=== PATIENT | male | born 1965 | race African-American/Black ===

== ENCOUNTER 2016-11-23 13:56 | Emergency (ER) | payer OTHER ==
[2016-11-23 14:04] VITALS: BP 136/82; PULSE 63; TEMP 97.8; BMI 38.4
[2016-11-23 14:34] LABS: URINE APPEARANCE CLEAR; URINE BILIRUBIN NEGATIVE (NEGATIVE); URINE COLOR LTYELLOW; URINE GLUCOSE (UA) NEGATIVE (NEGATIVE); URINE KETONE NEGATIVE (NEGATIVE); URINE NITRITE NEGATIVE (NEGATIVE); URINE UROBILINOGEN NEGATIVE E.U./dl (0.2-1.0)
[2016-11-23 14:36] LABS: URINE BLOOD 3+ (NEGATIVE); URINE LEUK ESTERASE 1+ (NEGATIVE); URINE PROTEIN 1+ (NEGATIVE)
[2016-11-23 14:38] LABS: URINE MUCUS RARE; URINE RBC 515 /hpf (0-3); URINE WBC 6 /hpf (3-5)
[2016-11-23] MEDS ORDERED: SODIUM CHLORIDE 1,000 ML IV STA (16:00)
[2016-11-23] MEDS ORDERED: KETOROLAC TROMETHAMINE 30 MG/1 ML VIAL IVPUSH ONE (16:00)
[2016-11-23] MEDS ORDERED: ONDANSETRON 4 MG/2 ML VIAL IVPUSH ONE (16:00)
[2016-11-23] MEDS ORDERED: KETOROLAC TROMETHAMINE 30 MG/1 ML VIAL ONE ×2 (16:05)
[2016-11-23] MEDS ORDERED: ONDANSETRON 4 MG/2 ML VIAL ONE (16:05)
--- NOTE | 2016-11-23 16:41 | PDOC ---
*Physical Exam - Vital Signs Last Vital Signs Temp Pulse Resp BP Pulse Ox 97.8 F 63 16 136/82 98 11/23/16 14:02 11/23/16 14:02 11/23/16 14:02 11/23/16 14:02 11/23/16 14:02 ED Treatment Course - LABORATORY CBC & Chemistry Diagram: 11/23/16 16:23 11/23/16 16:23 - ADDITIONAL ORDERS Additional order review: Laboratory Results 11/23/16 14:20 Urine Color Ltyellow Urine Appearance Clear Urine pH 5.0 Ur Specific [place] 1.016 Urine Protein 1+ H Urine Glucose (UA) Negative Urine Ketones Negative Urine Blood 3+ H Urine Nitrite Negative Urine Bilirubin Negative Urine Urobilinogen Negative Ur Leukocyte Esterase 1+ H Urine RBC 515 Urine WBC 6 Ur Epithelial Cells Rare Urine Mucus Rare - Medications Given in the ED: ED Medications Discontinued Medications Generic Name Dose Route Start Last Admin Trade Name Freq PRN Reason Stop Dose Admin Ketorolac Tromethamine 30 mg 11/23/16 16:00 11/23/16 16:04 Toradol Injection - IVPUSH 11/23/16 16:01 30 mg ONCE ONE Administration Ondansetron HCl 4 mg 11/23/16 16:00 11/23/16 16:03 Zofran Injection IVPUSH 11/23/16 16:01 4 mg ONCE ONE Administration Medical Decision Making - Medical Decision Making 11/23/16 16:41 Pt seen by Midlevel Provider under my direct supervision Ancillary studies reviewed I agree with plan as outlined by Midlevel Provider *DC/Admit/Observation/Transfer Diagnosis at time of Disposition: Renal colic, Right flank pain - Discharge Dispostion Disposition: HOME Condition at time of disposition: Improved - Prescriptions Prescriptions: Oxycodone HCl/Acetaminophen [Percocet 5-325 mg Tablet] 1 - 2 tab PO Q6H PRN #16 tab MDD 4 PRN Reason: Pain - Referrals Referrals: Jose Maria Friedman MD [Staff Physician] - Ge Shrestha MD [Primary Care Provider] - - Patient Instructions Printed Discharge Instructions: DI for Kidney Stones Additional Instructions: Please follow-up with urologist and take Percocet as needed. Take your Flomax as previously prescribed. Please return to ED if you have worsening pain fever, or inability to urinate
--- NOTE | 2016-11-23 16:45 | PDOC ---
History of Present Illness - General Chief Complaint: Pain, Acute Stated Complaint: GROIN/BACK PAIN Time Seen by Provider: 11/23/16 14:02 History Source: Patient Exam Limitations: No Limitations - History of Present Illness Travel History: No Initial Comments: 11/23/16 15:43 51-year-old male with history of renal colic in BPH presents to the ED with complaints of hematuria, right flank pain, and urinary frequency for the past few days. Patient denies fever, chills, vomiting but does state intermittent nausea with discomfort. Patient states has seen Dr. Fernandez in the past and had a stent placed by a neurologist and [facility] but has not followed up with anyone recently. Timing/Duration: reports: constant, getting worse, intermittent Quality: reports: moderate, sharpness Abdominal Pain Onset Location: reports: flank (rt) Pain Radiation: reports: no radiation Activities at Onset: reports: none Aggravating Factors: improves with: Movement, Voiding Alleviating Factors: improves with: None Past History - Past Medical History Allergies/Adverse Reactions: Allergies Allergy/AdvReac Type Severity Reaction Status Date / Time Cat/Feline Product Allergy Verified 11/23/16 14:04 Derivatives No Known Drug Allergies Allergy Verified 11/23/16 14:04 Home Medications: Ambulatory Orders Ibuprofen 800 mg PO QID PRN #20 tablet 09/13/16 Tamsulosin HCl [Flomax] 0.4 mg PO DAILY #7 cap.er.24h 09/13/16 Kidney Stones: Yes (MULTIPLE LITHOTRIPSY) - Immunization History Td Vaccination: Yes TDAP Vaccination: No Immunization Up to Date: No - Psycho/Social/Smoking Cessation Hx Anxiety: No Suicidal Ideation: No Smoking Status: Yes Smoking History: Former smoker Years of Tobacco Use: 20 Have you smoked in the past 12 months: No Number of Cigarettes Smoked Daily: 0 If you are a former smoker, when did you quit?: 4 years ago Cigars Per Day: 0 Information on smoking cessation initiated: No Hx Alcohol Use: No Drug/Substance Use Hx: Yes Substance Use Type: None Patient Lives Alone: No Lives with/in: spouse/SO Review of Systems - Review of Systems Able to Perform ROS?: Yes Constitutional: No: Symptoms Reported HEENTM: No: Symptoms Reported Respiratory: No: Symptoms reported Cardiac (ROS): No: Symptoms Reported ABD/GI: Yes: Nausea : Yes: Dysuria, Frequency, Flank Pain, Hematuria Musculoskeletal: No: Symptoms Reported Integumentary: No: Symptoms Reported Neurological: No: Symptoms reported *Physical Exam - Vital Signs Last Vital Signs Temp Pulse Resp BP Pulse Ox 97.8 F 63 16 136/82 98 11/23/16 14:02 11/23/16 14:02 11/23/16 14:02 11/23/16 14:02 11/23/16 14:02 - Physical Exam General Appearance: Yes: Nourished, Appropriately Dressed. No: Apparent Distress HEENT: negative: Pale Conjunctivae Gastrointestinal/Abdominal: positive: Soft, Tenderness (rt flank) Musculoskeletal: positive: CVA Tenderness (R) Extremity: positive: Normal Capillary Refill. negative: Pedal Edema Integumentary: positive: Normal Color, Warm, Moist Neurologic: positive: Motor Strength 5/5 (ambulatory) ED Treatment Course - LABORATORY CBC & Chemistry Diagram: 11/23/16 16:23 11/23/16 16:23 - ADDITIONAL ORDERS Additional order review: Laboratory Results 11/23/16 14:20 Urine Color Ltyellow Urine Appearance Clear Urine pH 5.0 Ur Specific [place] 1.016 Urine Protein 1+ H Urine Glucose (UA) Negative Urine Ketones Negative Urine Blood 3+ H Urine Nitrite Negative Urine Bilirubin Negative Urine Urobilinogen Negative Ur Leukocyte Esterase 1+ H Urine RBC 515 Urine WBC 6 Ur Epithelial Cells Rare Urine Mucus Rare - RADIOLOGY Radiology Studies Ordered: Category Date Time Status KIDNEY / RENAL US [US] Stat Ultrasound 11/23/16 16:03 Ordered - Medications Given in the ED: ED Medications Discontinued Medications Generic Name Dose Route Start Last Admin Trade Name Bryanna PRN Reason Stop Dose Admin Ketorolac Tromethamine 30 mg 11/23/16 16:00 11/23/16 16:04 Toradol Injection - IVPUSH 11/23/16 16:01 30 mg ONCE ONE Administration Ondansetron HCl 4 mg 11/23/16 16:00 11/23/16 16:03 Zofran Injection IVPUSH 11/23/16 16:01 4 mg ONCE ONE Administration Medical Decision Making - Medical Decision Making 11/23/16 15:45 Patient with history of renal colic with distal tips he presents with urinary frequency hematuria and flank pain. Patient with CVA tenderness on exam and right flank tenderness on exam. Patient ordered for labs including fluids and analgesics, antiemetics and ultrasound since patient just had a CT done in September 2016 on top of previous abdominal CT. 11/23/16 18:24 Laboratory Tests 11/23/16 11/23/16 11/23/16 14:20 16:23 16:23 WBC 4.9 Hgb 13.4 Hct 40.0 Plt Count 248 Neutrophils % 45.1 Sodium 139 Potassium 4.1 Chloride 105 Carbon Dioxide 27 Anion Gap 7 L BUN 10 Creatinine 0.9 Random Glucose 95 Calcium 8.7 Total Bilirubin 0.2 AST 16 ALT 41 Albumin 4.0 Urine Protein 1+ H Urine Blood 3+ H Urine Nitrite Negative Ur Leukocyte Esterase 1+ H Urine RBC 515 Urine WBC 6 Patient states pain is returning and requesting more analgesics. Patient ordered for dilaudid. Patient's ultrasound pending. 11/23/16 18:34 Ultrasound shows a 6 mm echogenic focus and its lower pole consistent with the previously visualized nonobstructing stone. The left kidney appears unremarkable. There is no evidence of hydronephrosis, cystic or solid mass lesion bilaterally. Patient will be discharged home with Percocet continue his Flomax and follow-up with Dr. Friedman *DC/Admit/Observation/Transfer Diagnosis at time of Disposition: Renal colic, Right flank pain - Discharge Dispostion Disposition: HOME Condition at time of disposition: Improved - Referrals Referrals: Ge Shrestha MD [Primary Care Provider] - Jose Maria Friedman MD [Staff Physician] - - Patient Instructions Printed Discharge Instructions: DI for Kidney Stones Additional Instructions: Please follow-up with urologist and take Percocet as needed. Take your Flomax as previously prescribed. Please return to ED if you have worsening pain fever, or inability to urinate
[2016-11-23 17:14] LABS: BASOPHIL 0.5 % (0-2.0); EOSINOPHIL 3.3 % (0-4.5); MCH 27.6 pg (25.7-33.7); MCHC 33.5 g/dl (32.0-35.9); MEAN CELL VOLUME 82.4 fl (80-96); MEAN PLT VOLUME 7.9 fl (7.5-11.1); NEUTROPHILS 45.1 % (42.8-82.8); PLATELET COUNT 248 K/MM3 (134-434); RDW 13.7 % (11.9-15.9); WHITE BLOOD COUNT 4.9 K/mm3 (4.0-10.0)
[2016-11-23 17:33] LABS: ANION GAP 7 (8-16); BILIRUBIN,TOTAL 0.2 mg/dL (0.2-1.0); CALCIUM 8.7 mg/dL (8.5-10.1); CO2 27 mmol/L (21-32); CREATININE 0.9 mg/dL (0.7-1.3); GLUCOSE,RANDOM 95 mg/dL (74-106); SGOT/AST 16 U/L (15-37); SGPT/ALT 41 U/L (12-78); TOT PROT 7.1 g/dl (6.4-8.2)
[2016-11-23 17:34] LABS: ALK PHOS 94 U/L (45-117)
[2016-11-23] MEDS ORDERED: HYDROmorphone HCL CARPU-JECT 2 MG/1 ML DISP.SYRIN IVPUSH ONE (18:18)
[2016-11-23] MEDS ORDERED: HYDROmorphone HCL CARPU-JECT 1 MG/1 ML DISP.SYRIN ONE (18:26)
== END 2016-11-23 19:37 | disposition home or self-care (01) ==
LOC: JER 13:56
PROC: 3E0333Z Introduction of Anti-inflammatory into Peripheral Vein, Percutaneous Approach (ICD-10-PCS; principal; 2016-11-23)
PROC: 3E033GC Introduction of Other Therapeutic Substance into Peripheral Vein, Percutaneous Approach (ICD-10-PCS; 2016-11-23)
DX: N20.0 Calculus of kidney (principal)
CPT/HCPCS: 36415; 76775-TC; 80053; 81003; 81015; 85025; 99282-25

== ENCOUNTER 2017-01-03 18:47 | Emergency (ER) | payer OTHER ==
[2017-01-03 18:55] VITALS: BMI 39.5
--- NOTE | 2017-01-03 20:53 | PDOC ---
History of Present Illness - General History Source: Patient Exam Limitations: No Limitations - History of Present Illness Initial Comments: 01/03/17 21:38 The patient is a 51 year old male, with a significant past medical history of recurrent renal colic and kidney stones( for the past 6 years), who presents to the emergency department with complaint of RT groin pain and right flank pain for 1 day. He notes that the pain initiated in the right flank area and radiates to the right groin. He reports diaphoresis and 1 episode of vomiting. Patient notes that his last renal stone 6-7 months ago on the same side which is usual for him. He notes that the stones sometimes pass on their own or he has lithotripsy. He states that his last intervention was a year and half ago. He denies chest pain, shortness of breath, headache and dizziness. He denies fever, chills, nausea, vomit, diarrhea and constipation. He denies dysuria, frequency, urgency and hematuria. PSH: lithotripsy Social history: occasional drinker, former smoker, no recreational drug use. PCP - Dr. Shrestha Disbursement Clerk - Dr. Fontenot <Cassie Felder - Last Filed: 01/04/17 00:26> <Daksha Moise - Last Filed: 01/05/17 02:19> - General Chief Complaint: Pain, Acute Stated Complaint: KIDNEY STONES Time Seen by Provider: 01/03/17 20:43 Past History <Cassie Felder - Last Filed: 01/04/17 00:26> - Past Medical History Kidney Stones: Yes (MULTIPLE LITHOTRIPSY) - Immunization History Td Vaccination: Yes TDAP Vaccination: No Immunization Up to Date: No - Psycho/Social/Smoking Cessation Hx Anxiety: No Suicidal Ideation: No Smoking Status: Yes Smoking History: Never smoked Years of Tobacco Use: 20 Have you smoked in the past 12 months: No Number of Cigarettes Smoked Daily: 0 If you are a former smoker, when did you quit?: 4 years ago Cigars Per Day: 0 Information on smoking cessation initiated: No Hx Alcohol Use: No Drug/Substance Use Hx: Yes Substance Use Type: None <Daksha Moise - Last Filed: 01/05/17 02:19> - Past Medical History Allergies/Adverse Reactions: Allergies Allergy/AdvReac Type Severity Reaction Status Date / Time Cat/Feline Product Allergy Verified 01/03/17 18:55 Derivatives No Known Drug Allergies Allergy Verified 01/03/17 18:55 Home Medications: Ambulatory Orders Ibuprofen 800 mg PO QID PRN #20 tablet 09/13/16 Tamsulosin HCl [Flomax] 0.4 mg PO DAILY #7 cap.er.24h 09/13/16 Oxycodone HCl/Acetaminophen [Percocet 5-325 mg Tablet] 1 - 2 tab PO Q6H PRN #16 tab MDD 4 11/23/16 Ibuprofen [Motrin -] 800 mg PO TID PRN #21 tablet 01/04/17 Levofloxacin [Levaquin -] 500 mg PO DAILY #7 tablet 01/04/17 Tamsulosin HCl [Flomax -] 0.4 mg PO DAILY #7 cap.er.24h 01/04/17 Review of Systems - Review of Systems Able to Perform ROS?: Yes Comments:: 01/03/17 21:39 CONSTITUTIONAL: Absent: fever, chills, diaphoresis, generalized weakness, malaise, loss of appetite HEENT: Absent: rhinorrhea, nasal congestion, throat pain, throat swelling, difficulty swallowing, mouth swelling, ear pain, eye pain, visual Changes CARDIOVASCULAR: Absent: chest pain, syncope, palpitations, irregular heart rate, lightheadedness , peripheral edema RESPIRATORY: Absent: cough, shortness of breath, dyspnea with exertion, orthopnea, wheezing, stridor, hemoptysis GASTROINTESTINAL: Absent: abdominal pain, abdominal distension, nausea, vomiting, diarrhea, constipation, melena, hematochezia GENITOURINARY: Past: right flank pain, right groin pain Absent: dysuria, frequency, urgency, hesitancy, hematuria, genital pain MUSCULOSKELETAL: Absent: myalgia, arthralgia, joint swelling SKIN: Absent: rash, itching, pallor HEMATOLOGIC/IMMUNOLOGIC: Absent: easy bleeding, easy bruising, lymphadenopathy, frequent infections ENDOCRINE: Absent: unexplained weight gain, unexplained weight loss, heat intolerance, cold intolerance NEUROLOGIC: Absent: headache, focal weakness or paresthesias, dizziness, unsteady gait, seizure, mental status changes, bladder or bowel incontinence PSYCHIATRIC: Absent: anxiety, depression, suicidal or homicidal ideation, hallucinations. <Cassie Felder - Last Filed: 01/04/17 00:26> *Physical Exam - Vital Signs Last Vital Signs Temp Pulse Resp BP Pulse Ox 97.9 F 68 18 138/95 98 01/03/17 18:52 01/03/17 18:52 01/03/17 18:52 01/03/17 18:52 01/03/17 18:52 - Physical Exam Comments: 01/03/17 21:40 GENERAL: Well developed, well nourished. Awake and alert. No acute distress. HEENT: Normocephalic, atraumatic. PERRLA, EOMI. No conjunctival pallor. Sclera are non- icteric. Moist mucous membranes. Oropharynx is clear. NECK: Supple. Full ROM. No JVD. Carotid pulses 2+ and symmetric, without bruits. No thyromegaly. No lymphadenopathy. CARDIOVASCULAR: Regular rate and rhythm. No murmurs, rubs, or gallops. Distal pulses are 2+ and symmetric. PULMONARY: No evidence of respiratory distress. Lungs clear to auscultation bilaterally. No wheezing, rales or rhonchi. ABDOMINAL: Soft. Non-tender. Non-distended. No rebound or guarding. No organomegaly. Normoactive bowel sounds. MUSCULOSKELETAL +right CVA tenderness. Normal range of motion at all joints. No bony deformities or tenderness. EXTREMITIES: No cyanosis. No clubbing. No edema. No calf tenderness. SKIN: Warm and dry. Normal capillary refill. No rashes. No jaundice. NEUROLOGICAL: Alert, awake, appropriate. Cranial nerves 2-12 intact. No deficits to light touch and temperature in face, upper extremities and lower extremities. No motor deficits in the in face, upper extremities and lower extremities. Normoreflexic in the upper and lower extremities. Normal speech. PSYCHIATRIC: Cooperative. Good eye contact. Appropriate mood and affect. <Cassie Felder - Last Filed: 01/04/17 00:26> - Vital Signs Last Vital Signs Temp Pulse Resp BP Pulse Ox 97.9 F 68 18 138/95 98 01/03/17 18:52 01/03/17 18:52 01/03/17 18:52 01/03/17 18:52 01/03/17 18:52 <Daksha Moise - Last Filed: 01/05/17 02:19> ED Treatment Course - LABORATORY CBC & Chemistry Diagram: 01/03/17 21:35 01/03/17 21:35 - RADIOLOGY Radiology Studies Ordered: 01/04/17 00:27 EXAM DATE AND TIME: 2017-01-03 23:54:47.0 EXAM: ULTRASOUND RENAL 8 mm nonobstructing stone right kidney. Normal left kidney. THIS DOCUMENT HAS BEEN ELECTRONICALLY SIGNED Kelly Baca M.D. - Medications Given in the ED: ED Medications Discontinued Medications Generic Name Dose Route Start Last Admin Trade Name Freq PRN Reason Stop Dose Admin Ketorolac Tromethamine 30 mg 01/03/17 21:13 01/03/17 21:30 Toradol Injection - IVPUSH 01/03/17 21:14 30 mg ONCE ONE Administration <Cassie Felder - Last Filed: 01/04/17 00:26> - LABORATORY CBC & Chemistry Diagram: 01/03/17 21:35 01/03/17 21:35 <Daksha Moise - Last Filed: 01/05/17 02:19> Medical Decision Making - Medical Decision Making 01/05/17 02:18 51yo male w flank pain,no fever,no vomiting UA++UTI renal ultrasound normal chemistry - renal function good pt started on antibotics <Daksha Moise - Last Filed: 01/05/17 02:19> *DC/Admit/Observation/Transfer - Attestations Scribe Attestion: 01/03/17 21:41 Documentation prepared by ZACH Denis, acting as medical scheduler for Daksha Moise MD. <Cassie Felder - Last Filed: 01/04/17 00:26> <Daksha Moise - Last Filed: 01/05/17 02:19> Diagnosis at time of Disposition: Right flank pain, Cystitis - Discharge Dispostion Disposition: HOME Condition at time of disposition: Improved - Prescriptions Prescriptions: Tamsulosin HCl [Flomax -] 0.4 mg PO DAILY #7 cap.er.24h Levofloxacin [Levaquin -] 500 mg PO DAILY #7 tablet Ibuprofen [Motrin -] 800 mg PO TID PRN #21 tablet PRN Reason: Back Pain - Referrals Referrals: Annalisa Shrestha MD [Primary Care Provider] - - Patient Instructions Printed Discharge Instructions: DI for Hemorrhagic Cystitis, DI for Flank Pain Additional Instructions: you need to rock picker your prescriptions at your [facility] Follow up with your urologist as soon as possible
[2017-01-03] MEDS ORDERED: KETOROLAC TROMETHAMINE 30 MG/1 ML VIAL IVPUSH ONE (21:13)
[2017-01-03] MEDS ORDERED: KETOROLAC TROMETHAMINE 30 MG/1 ML VIAL ONE (21:31)
[2017-01-03 21:48] LABS: BASOPHIL 0.6 % (0-2.0); EOSINOPHIL 1.7 % (0-4.5); MCH 27.7 pg (25.7-33.7); MCHC 33.5 g/dl (32.0-35.9); MEAN CELL VOLUME 82.6 fl (80-96); MEAN PLT VOLUME 7.8 fl (7.5-11.1); NEUTROPHILS 59.2 % (42.8-82.8); PLATELET COUNT 244 K/MM3 (134-434); RDW 13.5 % (11.9-15.9); WHITE BLOOD COUNT 5.3 K/mm3 (4.0-10.0)
[2017-01-03 22:23] LABS: ALBUMIN 3.9 g/dl (3.4-5.0); ANION GAP 9 (8-16); CALCIUM 8.6 mg/dL (8.5-10.1); CO2 24 mmol/L (21-32); GLUCOSE,RANDOM 120 mg/dL (74-106); SGOT/AST 16 U/L (15-37); SGPT/ALT 39 U/L (12-78)
[2017-01-03 22:26] LABS: ALK PHOS 98 U/L (45-117); BILIRUBIN,TOTAL 0.2 mg/dL (0.2-1.0); TOT PROT 6.9 g/dl (6.4-8.2)
[2017-01-03 23:19] LABS: URINE APPEARANCE CLEAR; URINE BILIRUBIN NEGATIVE (NEGATIVE); URINE COLOR YELLOW; URINE GLUCOSE (UA) NEGATIVE (NEGATIVE); URINE KETONE NEGATIVE (NEGATIVE); URINE LEUK ESTERASE NEGATIVE (NEGATIVE); URINE NITRITE NEGATIVE (NEGATIVE); URINE UROBILINOGEN NEGATIVE E.U./dl (0.2-1.0)
[2017-01-03 23:21] LABS: URINE BLOOD 3+ (NEGATIVE); URINE PROTEIN 1+ (NEGATIVE)
[2017-01-03 23:25] LABS: URINE MUCUS FEW; URINE RBC 158 /hpf (0-3); URINE WBC 5 /hpf (3-5)
[2017-01-03] MEDS ORDERED: HYDROmorphone HCL CARPU-JECT 1 MG/1 ML DISP.SYRIN ONE (23:54)
[2017-01-04] MEDS ORDERED: LEVOFLOXACIN 500 MG TABLET (FP) PO ONE (00:41)
[2017-01-04] MEDS ORDERED: HYDROmorphone HCL CARPU-JECT 1 MG/1 ML DISP.SYRIN IVPUSH ONE (00:41)
[2017-01-04] MEDS ORDERED: TAMSULOSIN HCL 0.4 MG CAP.ER.24H (FP) PO ONE (00:41)
[2017-01-04] MEDS ORDERED: TAMSULOSIN HCL 0.4 MG CAP.ER.24H (FP) ONE (00:52)
[2017-01-04] MEDS ORDERED: LEVOFLOXACIN 500 MG TABLET (FP) ONE (00:52)
[2017-01-04 01:07] VITALS: BP 119/65; PULSE 84; TEMP 98.7
== END 2017-01-04 01:05 | disposition home or self-care (01) ==
LOC: JER 18:47
PROC: 3E033NZ Introduction of Analgesics, Hypnotics, Sedatives into Peripheral Vein, Percutaneous Approach (ICD-10-PCS; principal; 2017-01-03)
PROC: 3E0333Z Introduction of Anti-inflammatory into Peripheral Vein, Percutaneous Approach (ICD-10-PCS; 2017-01-03)
DX: N30.01 Acute cystitis with hematuria (principal)
CPT/HCPCS: 36415; 76775-TC; 80053; 81003; 81015; 85025; 99282-25

== ENCOUNTER 2017-01-05 06:30 | Emergency (ER) | payer OTHER ==
[2017-01-05 06:57] VITALS: TEMP 97.5; BMI 87.1
[2017-01-05] MEDS ORDERED: KETOROLAC TROMETHAMINE 30 MG/1 ML VIAL IVPUSH ONE (07:21)
[2017-01-05] MEDS ORDERED: SODIUM CHLORIDE 1,000 ML IV ONE (07:21)
[2017-01-05] MEDS ORDERED: KETOROLAC TROMETHAMINE 30 MG/1 ML VIAL ONE (07:37)
--- NOTE | 2017-01-05 07:47 | PDOC ---
History of Present Illness <Cassie Felder - Last Filed: 01/05/17 11:14> - General History Source: Patient, Old Records Exam Limitations: No Limitations - History of Present Illness Initial Comments: 01/05/17 07:42 51-year-old male with no significant past medical history other than kidney stones presents with persistent right flank pain for 3 days. Pain similar to past kidney stone pain began 3 days ago, was seen in the ED on 01/03 and had an ultrasound showing nonobstructing stones, labs that were normal, and a urinalysis with elevated red blood cells and some white blood cells, so he was discharged on Flomax and Levaquin. The patient was feeling well most of yesterday, but this morning felt another sharp and sudden pain radiating from his right flank to his right groin, so he presents for reevaluation. Pain after urination, otherwise normal urine output that is nonbloody and without clots. No fevers or chills, no diarrhea. No cardio pulmonary complaints, no recent antibiotics. Sexually active with 2 partners, uses condoms most of the time, denies any urethral discharge or history of STI. Required a ureteral stent once in the past, otherwise no surgical history. <José Miguel Cole - Last Filed: 01/05/17 12:45> - General Chief Complaint: Pain Stated Complaint: PAIN,KIDNEY STONES Time Seen by Provider: 01/05/17 07:16 Past History <Cassie Felder - Last Filed: 01/05/17 11:14> - Past Medical History Kidney Stones: Yes (MULTIPLE LITHOTRIPSY) - Immunization History Td Vaccination: Yes TDAP Vaccination: No Immunization Up to Date: No - Psycho/Social/Smoking Cessation Hx Anxiety: No Suicidal Ideation: No Smoking Status: Yes Smoking History: Never smoked Years of Tobacco Use: 20 Have you smoked in the past 12 months: No Number of Cigarettes Smoked Daily: 0 If you are a former smoker, when did you quit?: 4 years ago Cigars Per Day: 0 Hx Alcohol Use: No Drug/Substance Use Hx: No Substance Use Type: None <José Miguel Cole - Last Filed: 01/05/17 12:45> - Past Medical History Allergies/Adverse Reactions: Allergies Allergy/AdvReac Type Severity Reaction Status Date / Time Cat/Feline Product Allergy Verified 01/05/17 06:53 Derivatives No Known Drug Allergies Allergy Verified 01/05/17 06:53 Home Medications: Ambulatory Orders Ciprofloxacin HCl [Cipro] 500 mg PO BID #10 tablet 01/05/17 Oxycodone HCl/Acetaminophen [Percocet 5-325 mg Tablet] 1 - 2 tab PO Q6H PRN #10 tab MDD 6 01/05/17 Tamsulosin HCl [Flomax] 0.4 mg PO DAILY #5 cap.er.24h 01/05/17 Review of Systems - Review of Systems Constitutional: No: Chills, Fever Respiratory: No: Cough, Shortness of Breath Cardiac (ROS): No: Chest Pain ABD/GI: No: Constipated, Diarrhea : Yes: See HPI All Other Systems: Reviewed and Negative <José Miguel Cole - Last Filed: 01/05/17 12:45> *Physical Exam - Vital Signs Last Vital Signs Temp Pulse Resp BP Pulse Ox 97.5 F L 52 L 20 148/99 100 01/05/17 06:55 01/05/17 10:55 01/05/17 10:55 01/05/17 10:55 01/05/17 10:55 <Cassie Felder - Last Filed: 01/05/17 11:14> - Vital Signs Last Vital Signs Temp Pulse Resp BP Pulse Ox 97.5 F L 18 L 135/94 100 01/05/17 06:55 01/05/17 06:55 01/05/17 06:55 01/05/17 06:55 - Physical Exam Comments: 01/05/17 07:44 HR 80 (18 on triage note is a misprint) GENERAL: The patient is awake, alert, and fully oriented, in mild distress secondary to flank pain. HEAD: Normal with no signs of trauma. EYES: PERRL, EOMI, sclera anicteric, conjunctiva clear with no pallor. ENT: oropharynx clear without exudates. Moist mucous membranes. NECK: Normal range of motion, supple without lymphadenopathy, JVD, or masses. LUNGS: Breath sounds equal, clear to auscultation bilaterally. No wheeze/ crackles. HEART: Regular rate and rhythm, normal S1 and S2 without murmur or rub. ABDOMEN: Soft/nondistended. Discomfort to palpation along the lateral right abdomen, no focal CVA tenderness. BS wnl. No guarding or rebound. No palpable masses. No hepatosplenomegaly. : Normal uncircumcised without discharge, no scrotal or testicular enlargement or palpable masses, some right epididymal discomfort to palpation EXTREMITIES: Normal range of motion, no edema. 2+ distal pulses. No cords, erythema, or tenderness. NEUROLOGICAL: Cranial nerves II through XII grossly intact. Normal speech, normal gait. PSYCH: Normal mood, normal affect. SKIN: Warm, Dry, no rashes or lesions noted. <José Miguel Cole - Last Filed: 01/05/17 12:45> ED Treatment Course - LABORATORY CBC & Chemistry Diagram: 01/05/17 08:00 01/05/17 08:00 - ADDITIONAL ORDERS Additional order review: Laboratory Results 01/05/17 01/05/17 08:00 08:00 Sodium 139 Potassium 3.8 Chloride 101 Carbon Dioxide 30 D Anion Gap 8 BUN 8 D Creatinine 1.0 Creat Clearance w eGFR > 60 Random Glucose 113 H Calcium 8.5 Total Bilirubin 0.5 D AST 20 D ALT 34 Alkaline Phosphatase 94 Total Protein 7.5 Albumin 4.1 Lipase 218 Urine Color Ltyellow Urine Appearance Clear Urine pH 6.0 Ur Specific [place] 1.015 Urine Protein 1+ H Urine Glucose (UA) Negative Urine Ketones Negative Urine Blood 3+ H Urine Nitrite Negative Urine Bilirubin Negative Urine Urobilinogen Negative Ur Leukocyte Esterase Trace H Urine RBC 168 Urine WBC 7 Ur Epithelial Cells Rare Urine Mucus Few 01/05/17 08:00 RBC 5.24 MCV 82.8 MCHC 33.7 RDW 13.5 MPV 7.6 Neutrophils % 48.8 Lymphocytes % 36.8 Monocytes % 10.4 H Eosinophils % 3.3 D Basophils % 0.7 - RADIOLOGY Radiology Studies Ordered: 01/05/17 11:11 EXAM: CT/ABDOMEN PELVIS CT W/O CONTR Clinical history: Right flank pain. Comparison: September 13, 2016. Contiguous transaxial images were obtained from the diaphragmatic domes and pubic symphysis without the administration of oral and IV contrast as a Stone study. Lung bases: Negative. Bone: Negative. Liver: Negative. Gallbladder: Negative. Biliary tree: Negative. Spleen: Negative. Pancreas: Negative. Adrenals: Negative. Kidneys: Mild right hydronephrosis with a 5 mm renal pelvic stone and a 4-5 mm lower pole stone. No ureteral or bladder calculi. Pelvis: Negative. Under distended bladder. Normal sized prostate. Bowel: Negative, including the appendix. Other: Negative. Impression: Mild right hydronephrosis related to a 5 mm renal pelvic stone. /5 mm right lower pole renal stone. On the prior study, the 2 stones were seen in the lower pole adjacent to each other. Reported By: Blake Elizabeth MD 01/05/17 01/05/17 11:14 EXAM: US/SCROTUM AND CONTENTS US Scrotal ultrasound: HISTORY: Right-sided discomfort. Ultrasound of the scrotum and its contents is performed. The testicles are homogeneous in echotexture and demonstrate normal arterial flow bilaterally. The right testicle measures 5.3 x 2.5 x 3.2 cm and the left testicle measures 4.8 x 2.5 x 3.6 cm The epididymal head on the right is heterogeneous in appearance and there is a complex hydrocele on the right. The left epididymis is unremarkable. There is a minimal left hydrocele. IMPRESSION: Heterogeneous appearance to the epididymal head on the right and complex right hydrocele and recommend clinical correlation. No evidence of testicular torsion. Reported By: Fahad Nieves MD 01/05/17 - Medications Given in the ED: ED Medications Discontinued Medications Generic Name Dose Route Start Last Admin Trade Name Freq PRN Reason Stop Dose Admin Sodium Chloride 1,000 mls @ 1,000 mls/hr 01/05/17 07:21 01/05/17 07:54 Normal Saline - IV 01/05/17 08:20 Not Given ONCE ONE Ketorolac Tromethamine 30 mg 01/05/17 07:21 01/05/17 07:50 Toradol Injection - IVPUSH 01/05/17 07:22 30 mg ONCE ONE Administration Oxycodone/Acetaminophen 2 combo 01/05/17 10:54 01/05/17 11:04 Percocet 5/325 - PO 01/05/17 10:55 2 combo ONCE ONE Administration <Cassie Felder - Last Filed: 01/05/17 11:14> - LABORATORY CBC & Chemistry Diagram: 01/05/17 08:00 01/05/17 08:00 - RADIOLOGY Radiology Studies Ordered: Category Date Time Status ABDOMEN & PELVIS CT W/O CONTR [CT] Stat CT Scan 01/05/17 07:35 Ordered <José Miguel Cole - Last Filed: 01/05/17 12:45> Medical Decision Making - Medical Decision Making 01/05/17 07:45 51-year-old male with history of kidney stones presents with renal colic like pain for 3 days, recurrent episode this morning. 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 Some testicular discomfort. Presentation seems most consistent with renal colic but rule out epididymitis. labs, ua pain control ctap given 3d of persistent discomfort with hematuria check scrotal sono reassess 01/05/17 09:50 CT shows slightly obstructing 5 mm right renal pelvic stone, mild right hydronephrosis. Labs are within normal limits, no leukocytosis, creatinine normal. Urinalysis again with very elevated red blood cells and only 7 white blood cells. Ultrasound pending. 01/05/17 11:33 complex R hydrocele with heterogeneous epydidmis, testicles normal contour and flow. Pt with persistent R flank pain, trial of percocet. Given ongoing sxs for 3d and persistent proximal location of 5mm stone, will consult urology. Dr. Conte called. 01/05/17 12:[address] Rubio, lithotripsy would not be available urgently. Given nonobstructing and noninfected stone, recommends treating empirically with Levaquin and pain medication, and can see the patient in his office tomorrow. Patient agrees with plan, is more comfortable after Percocet, can get the prescriptions filled and take the medications from his prior visit. Understands return criteria. <José Miguel Cole - Last Filed: 01/05/17 12:45> *DC/Admit/Observation/Transfer <Cassie Felder - Last Filed: 01/05/17 11:14> <José Miguel Cole - Last Filed: 01/05/17 12:45> Diagnosis at time of Disposition: Renal colic on right side - Discharge Dispostion Disposition: HOME Condition at time of disposition: Improved - Prescriptions Prescriptions: Ciprofloxacin HCl [Cipro] 500 mg PO BID #10 tablet Tamsulosin HCl [Flomax] 0.4 mg PO DAILY #5 cap.er.24h Oxycodone HCl/Acetaminophen [Percocet 5-325 mg Tablet] 1 - 2 tab PO Q6H PRN #10 tab MDD 6 PRN Reason: Pain - Referrals Referrals: Annalisa Shrestha [Primary Care Provider] - Behzad Conte MD., [Staff Physician] - - Patient Instructions Printed Discharge Instructions: DI for Kidney Stones Additional Instructions: Activity as tolerated. Stay hydrated. There is a 5 mm kidney stone on the right side without evidence of infection. As discussed, it is likely that this will pass on its own but you should see a urologist as soon as possible. Take ibuprofen 600 mg with food every 6-8 hours as needed for moderate pain. Take Percocet as prescribed as needed for severe pain. Percocet can make you lightheaded, so take proper precautions. Take Flomax as prescribed to help pass the stone, take ciprofloxacin as prescribed to help prevent infection. Continue your medications as previously prescribed by your physician. You should follow up with a urologist as soon as possible regarding today's emergency department visit. If you can see your urologist Dr. Lima, call Dr. Rubio's office today to make an appointment for tomorrow. He is expecting to see you. Return to the emergency department for any new or concerning symptoms, particularly persistent or intolerable pain, fevers or chills, difficulty urinating. - Post Discharge Activity Work/School Note: Back to Work
[2017-01-05 08:23] LABS: BASOPHIL 0.7 % (0-2.0); EOSINOPHIL 3.3 % (0-4.5); MCH 27.9 pg (25.7-33.7); MCHC 33.7 g/dl (32.0-35.9); MEAN CELL VOLUME 82.8 fl (80-96); MEAN PLT VOLUME 7.6 fl (7.5-11.1); NEUTROPHILS 48.8 % (42.8-82.8); PLATELET COUNT 224 K/MM3 (134-434); RDW 13.5 % (11.9-15.9); WHITE BLOOD COUNT 3.9 K/mm3 (4.0-10.0)
[2017-01-05 08:24] LABS: URINE APPEARANCE CLEAR; URINE BILIRUBIN NEGATIVE (NEGATIVE); URINE COLOR LTYELLOW; URINE GLUCOSE (UA) NEGATIVE (NEGATIVE); URINE KETONE NEGATIVE (NEGATIVE); URINE NITRITE NEGATIVE (NEGATIVE); URINE UROBILINOGEN NEGATIVE E.U./dl (0.2-1.0)
[2017-01-05 08:28] LABS: URINE BLOOD 3+ (NEGATIVE); URINE LEUK ESTERASE TRACE (NEGATIVE); URINE PROTEIN 1+ (NEGATIVE)
[2017-01-05 08:29] LABS: URINE MUCUS FEW; URINE RBC 168 /hpf (0-3); URINE WBC 7 /hpf (3-5)
[2017-01-05 08:46] LABS: ALBUMIN 4.1 g/dl (3.4-5.0); ANION GAP 8 (8-16); CALCIUM 8.5 mg/dL (8.5-10.1); CO2 30 mmol/L (21-32); GLUCOSE,RANDOM 113 mg/dL (74-106)
[2017-01-05 08:49] LABS: ALK PHOS 94 U/L (45-117); BILIRUBIN,TOTAL 0.5 mg/dL (0.2-1.0); SGOT/AST 20 U/L (15-37); SGPT/ALT 34 U/L (12-78); TOT PROT 7.5 g/dl (6.4-8.2)
[2017-01-05] MEDS ORDERED: OXYCODONE/APAP 5/325MG COMBO TABLET PO ONE (10:54)
[2017-01-05] MEDS ORDERED: OXYCODONE/APAP 5/325MG COMBO TABLET ONE (11:02)
[2017-01-05] MEDS ORDERED: TAMSULOSIN HCL 0.4 MG CAP.ER.24H (FP) PO ONE (12:38)
[2017-01-05] MEDS ORDERED: TAMSULOSIN HCL 0.4 MG CAP.ER.24H (FP) ONE (12:57)
[2017-01-05 13:06] VITALS: BP 130/95; PULSE 62
== END 2017-01-05 13:06 | disposition home or self-care (01) ==
LOC: JER 06:30
PROC: 3E0333Z Introduction of Anti-inflammatory into Peripheral Vein, Percutaneous Approach (ICD-10-PCS; principal; 2017-01-05)
DX: N23 Unspecified renal colic (principal); Z87.891 Personal history of nicotine dependence
CPT/HCPCS: 36415; 74176-TC; 76870-TC; 80053; 81003; 81015; 83690; 85025; 99283-25

== ENCOUNTER 2017-01-22 19:09 | Emergency (ER) | payer OTHER ==
[2017-01-22 19:34] VITALS: BMI 38.7
[2017-01-22] MEDS ORDERED: SODIUM CHLORIDE 1,000 ML IV STA (19:50)
[2017-01-22] MEDS ORDERED: ACETAMINOPHEN 500 MG TABLET (FP) PO ONE (19:50)
[2017-01-22 19:58] LABS: URINE APPEARANCE CLEAR; URINE BILIRUBIN NEGATIVE (NEGATIVE); URINE BLOOD NEGATIVE (NEGATIVE); URINE COLOR LTYELLOW; URINE GLUCOSE (UA) NEGATIVE (NEGATIVE); URINE KETONE TRACE (NEGATIVE); URINE NITRITE NEGATIVE (NEGATIVE); URINE PROTEIN NEGATIVE (NEGATIVE); URINE UROBILINOGEN NEGATIVE E.U./dl (0.2-1.0)
[2017-01-22 20:00] LABS: URINE LEUK ESTERASE TRACE (NEGATIVE)
[2017-01-22 20:03] LABS: URINE MUCUS RARE; URINE RBC 4 /hpf (0-3); URINE WBC 25 /hpf (3-5)
[2017-01-22] MEDS ORDERED: ACETAMINOPHEN 325 MG TABLET (FP) ONE (20:16)
[2017-01-22 20:23] LABS: BASOPHIL 0.3 % (0-2.0); EOSINOPHIL 0.2 % (0-4.5); MCH 27.4 pg (25.7-33.7); MCHC 33.3 g/dl (32.0-35.9); MEAN CELL VOLUME 82.3 fl (80-96); MEAN PLT VOLUME 7.6 fl (7.5-11.1); NEUTROPHILS 84.3 % (42.8-82.8); PLATELET COUNT 233 K/MM3 (134-434); RDW 13.3 % (11.9-15.9); WHITE BLOOD COUNT 12.5 K/mm3 (4.0-10.0)
--- NOTE | 2017-01-22 20:40 | PDOC ---
History of Present Illness - General Chief Complaint: SIRS, Suspected/Possible Stated Complaint: FEVER/CHILLS/GROIN PAIN Time Seen by Provider: 01/22/17 19:31 History Source: Patient Exam Limitations: No Limitations - History of Present Illness Travel History: No Initial Comments: 01/22/17 20:35 51yo Male patient w/ PmHx: Renal Colic presents to ED c/o fever, chills, groin pain and feeling of urine being hot inside penis. Patient states symptoms have occurred previously "years ago." He states he needed to be hospitalized because of fungal infection in urine. He also states while having sex last night, he had to stop because his penis again felt "extremely hot." Patient denies urgency , frequency, burning, discharge, hematuria, dysuria, back pain, CP, Abd pain, n/ v/d, rash, or any other complaints at this time. Associated testicular pain. Timing/Duration: reports: getting worse Quality: reports: moderate Abdominal Pain Onset Location: reports: other (Groin Pain) Pain Radiation: reports: no radiation Activities at Onset: reports: sexual intercourse Treatment Prior to Arrive: worse with: analgesics, antacids, cold pack, heat, laxative, enema, other Aggravating Factors: improves with: None Alleviating Factors: improves with: None Past History - Travel Traveled outside of the country in the last 30 days: No Close contact w/someone who was outside of country & ill: No - Past Medical History Allergies/Adverse Reactions: Allergies Allergy/AdvReac Type Severity Reaction Status Date / Time Cat/Feline Product Allergy Verified 01/22/17 19:32 Derivatives No Known Drug Allergies Allergy Verified 01/22/17 19:32 Home Medications: Ambulatory Orders Ciprofloxacin HCl [Cipro] 500 mg PO BID #10 tablet 01/05/17 Oxycodone HCl/Acetaminophen [Percocet 5-325 mg Tablet] 1 - 2 tab PO Q6H PRN #10 tab MDD 6 01/05/17 Tamsulosin HCl [Flomax] 0.4 mg PO DAILY #5 cap.er.24h 01/05/17 Ibuprofen 800 mg PO Q8H PRN #30 tablet 01/22/17 Levofloxacin [Levaquin -] 500 mg PO DAILY #10 tablet 01/22/17 Tramadol HCl [Ultram] 50 mg PO Q6H PRN #12 tablet MDD 4 tabs 01/22/17 Kidney Stones: Yes (MULTIPLE LITHOTRIPSY) - Immunization History Td Vaccination: Yes TDAP Vaccination: No Immunization Up to Date: No - Psycho/Social/Smoking Cessation Hx Anxiety: No Suicidal Ideation: No Smoking Status: Yes Smoking History: Never smoked Years of Tobacco Use: 20 Have you smoked in the past 12 months: No Number of Cigarettes Smoked Daily: 0 If you are a former smoker, when did you quit?: 4 years ago Cigars Per Day: 0 Information on smoking cessation initiated: No Hx Alcohol Use: No Drug/Substance Use Hx: No Substance Use Type: None Abd/GI Specific PMHX - Complaint Specific PMHX Colitis: No Diverticulitis: No Gall Bladder Disease: No GERD: No Hepatitis: No Irritable Bowel Synd (IBS): No Pancreatitis: No GI Ulcer Disease: No Review of Systems - Review of Systems Able to Perform ROS?: Yes Is the patient limited [place] proficient: No Constitutional: Yes: Chills, Malaise, Weakness Respiratory: No: Cough, Shortness of Breath, Stridor, Wheezing, Productive cough Cardiac (ROS): No: Chest Pain, Lightheadedness, Palpitations, Syncope ABD/GI: No: Constipated, Diarrhea, Nausea, Poor Appetite, Poor Fluid Intake, Rectal Bleeding, Vomiting, Abdominal cramping : Yes: Pain, Testicular Pain. No: Burning, Dysuria, Discharge, Frequency, Flank Pain, Hematuria, Urgency, Testicular Mass, Testicular Swelling Musculoskeletal: No: Back Pain, Muscle Weakness Integumentary: No: Erythema, Rash, Sweating Neurological: No: Headache, Seizure, Dizziness All Other Systems: Reviewed and Negative *Physical Exam - Vital Signs Last Vital Signs Temp Pulse Resp BP Pulse Ox 101.8 F H 88 20 144/91 99 01/22/17 19:32 01/22/17 19:32 01/22/17 19:32 01/22/17 19:32 01/22/17 19:32 - Physical Exam General Appearance: Yes: Nourished, Appropriately Dressed, Mild Distress. No: Apparent Distress, Moderate Distress, Severe Distress Neck: positive: Trachea midline, Supple. negative: Lymphadenopathy (R), Lymphadenopathy (L) Respiratory/Chest: positive: Lungs Clear, Normal Breath Sounds. negative: Respiratory Distress, Accessory Muscle Use, Labored Respiration, Rapid RR, Stridor, Wheezing Cardiovascular: positive: Regular Rhythm, Regular Rate. negative: Edema, JVD, Murmur Gastrointestinal/Abdominal: positive: Normal Bowel Sounds, Soft. negative: Distended, Guarding, Rebound, Tenderness Male Genitalia: positive: normal genitalia, testicular tenderness, epididymus tender. negative: discharge, testicular mass, inguinal hernia, hematuria Lymphatic: negative: Adenopathy Musculoskeletal: positive: Normal Inspection. negative: CVA Tenderness Extremity: positive: Normal Capillary Refill, Normal Inspection, Normal Range of Motion. negative: Swelling, Calf Tenderness, Erythema, Inflammation Integumentary: positive: Normal Color, Dry, Warm. negative: Erythema, Swelling Neurologic: positive: systems administration analyst II-XII NML intact, Fully Oriented, Alert, Normal Mood/ Affect, Normal Response, Motor Strength 02/04 ED Treatment Course - LABORATORY CBC & Chemistry Diagram: 01/22/17 20:12 01/22/17 20:12 - ADDITIONAL ORDERS Additional order review: Laboratory Results 01/22/17 19:49 Urine Color Ltyellow Urine Appearance Clear Urine pH 7.0 Ur Specific [place] 1.016 Urine Protein Negative Urine Glucose (UA) Negative Urine Ketones Trace H Urine Blood Negative Urine Nitrite Negative Urine Bilirubin Negative Urine Urobilinogen Negative Ur Leukocyte Esterase Trace H Urine RBC 4 Urine WBC 25 Ur Epithelial Cells Rare Urine Mucus Rare 01/22/17 20:12 RBC 5.00 MCV 82.3 MCHC 33.3 RDW 13.3 MPV 7.6 Neutrophils % 84.3 H D Lymphocytes % 7.8 L D Monocytes % 7.4 Eosinophils % 0.2 D Basophils % 0.3 - RADIOLOGY Radiology Studies Ordered: Category Date Time Status CHEST PA & LAT [RAD] Stat Radiology 01/22/17 19:50 Ordered - Medications Given in the ED: ED Medications Discontinued Medications Generic Name Dose Route Start Last Admin Trade Name Freq PRN Reason Stop Dose Admin Acetaminophen 1,000 mg 01/22/17 19:50 01/22/17 20:21 Tylenol - PO 01/22/17 19:51 1,000 mg ONCE ONE Administration *DC/Admit/Observation/Transfer Diagnosis at time of Disposition: Epididymitis - Discharge Dispostion Disposition: HOME Condition at time of disposition: Stable Admit: No - Prescriptions Prescriptions: Ibuprofen 800 mg PO Q8H PRN #30 tablet PRN Reason: Pain Levofloxacin [Levaquin -] 500 mg PO DAILY #10 tablet Tramadol HCl [Ultram] 50 mg PO Q6H PRN #12 tablet MDD 4 tabs PRN Reason: Severe Pain - Referrals Referrals: Barrett Polanco MD [Staff Physician] - - Patient Instructions Printed Discharge Instructions: DI for Epididymitis Additional Instructions: FOLLOW UP WITH DR. POLANCO (UROLOGY). CALL TO SCHEDULE APPOINTMENT. TAKE MEDICATIONS PRESCRIBED. DO NOT DRIVE, DRINK ALCOHOL, OR OPERATE HEAVY MACHINERY WHILE TAKING TRAMADOL. RETURN IF YOUR SYMPTOMS WORSEN OR ANY CONCERNS FOR FURTHER EVALUATION. AVOID SEXUAL INTERCOURSE FOR 10 DAYS. Print Language: AMHARIC
[2017-01-22 20:52] LABS: ALBUMIN 4.1 g/dl (3.4-5.0); ALK PHOS 96 U/L (45-117); ANION GAP 10 (8-16); BILIRUBIN,TOTAL 0.8 mg/dL (0.2-1.0); CALCIUM 8.9 mg/dL (8.5-10.1); CO2 26 mmol/L (21-32); COCKROFT - GAULT 132.89; CREATININE 1.1 mg/dL (0.7-1.3); GLUCOSE,RANDOM 119 mg/dL (74-106); SGOT/AST 20 U/L (15-37); SGPT/ALT 38 U/L (12-78); TOT PROT 7.5 g/dl (6.4-8.2); TROPONIN I < 0.02 ng/ml (0.00-0.05)
[2017-01-22] MEDS ORDERED: cefTRIAXone 2 GM/100 ML BAG (PRE-DOCKED) IVPB ONE (21:58)
[2017-01-22] MEDS ORDERED: CEFTRIAXONE 100 ML IVPB ONE (22:09)
[2017-01-23 01:28] VITALS: BP 128/81; PULSE 84; TEMP 100.4
== END 2017-01-23 01:24 | disposition home or self-care (01) ==
LOC: JER 19:09
PROC: 3E0337Z Introduction of Electrolytic and Water Balance Substance into Peripheral Vein, Percutaneous Approach (ICD-10-PCS; principal; 2017-01-22)
PROC: 3E03329 Introduction of Other Anti-infective into Peripheral Vein, Percutaneous Approach (ICD-10-PCS; 2017-01-22)
DX: N45.1 Epididymitis (principal)
CPT/HCPCS: 36415; 71020-TC; 76870-TC; 80053; 81003; 81015; 82550; 82553; 83605; 84484; 85025; 87040; 87086; 87804; 99284-25

== ENCOUNTER 2017-03-24 18:32 | Emergency (ER) | payer OTHER ==
[2017-03-24 18:46] VITALS: TEMP 97.9; BMI 36.9
--- NOTE | 2017-03-24 20:57 | PDOC ---
History of Present Illness - General History Source: Patient Exam Limitations: No Limitations - History of Present Illness Initial Comments: 03/24/17 20:58 The patient is a 51-year-old male, with a significant past medical history of recurrent kidney stones, who presents to the ED with right-sided flank pain today. The pt states that his pain is radiating down to his groan. Last CT scan for the kidney stones was in January. Patient reports nausea. The patient denies any fever, chills, vomiting, diarrhea, or abdominal pain. <Lucretia Ayon - Last Filed: 03/24/17 20:57> - General History Source: Patient <Heraclio Hodgson - Last Filed: 03/24/17 23:55> - General Chief Complaint: Pain Stated Complaint: PAIN Time Seen by Provider: 03/24/17 20:57 Past History <Lucretia Ayon - Last Filed: 03/24/17 20:57> - Past Medical History Kidney Stones: Yes (MULTIPLE LITHOTRIPSY) - Immunization History Td Vaccination: Yes TDAP Vaccination: No Immunization Up to Date: No - Psycho/Social/Smoking Cessation Hx Anxiety: No Suicidal Ideation: No Smoking Status: Yes Smoking History: Former smoker Years of Tobacco Use: 20 Have you smoked in the past 12 months: No Number of Cigarettes Smoked Daily: 0 If you are a former smoker, when did you quit?: 4 years ago Cigars Per Day: 0 Information on smoking cessation initiated: No Hx Alcohol Use: No Drug/Substance Use Hx: No Substance Use Type: None <Heraclio Hodgson - Last Filed: 03/24/17 23:55> - Past Medical History Allergies/Adverse Reactions: Allergies Allergy/AdvReac Type Severity Reaction Status Date / Time Cat/Feline Product Allergy Verified 03/24/17 18:43 Derivatives No Known Drug Allergies Allergy Verified 03/24/17 18:43 Home Medications: Ambulatory Orders Ibuprofen 800 mg PO TID #30 tablet 03/24/17 Oxycodone HCl/Acetaminophen [Percocet 5-325 mg Tablet] 1 - 2 tab PO Q4H #20 tablet MDD 4 03/24/17 Review of Systems - Review of Systems Able to Perform ROS?: Yes Comments:: 03/24/17 21:00 CONSTITUTIONAL: Absent: fever, no chills, no fatigue EYES: Absent: visual changes ENT: Absent: ear pain, no sore throat CARDIOVASCULAR: Absent: chest pain, no palpitations RESPIRATORY: Absent: cough, no SOB GI: Absent: abdominal pain, no nausea, no vomiting, no constipation, no diarrhea GENITOURINARY: Absent: dysuria, no frequency, no hematuria MUSKULOSKELETAL: Present: right-sided flank pain Absent: no arthralgia SKIN: Absent: rash NEURO: Absent: headache <Lucretia Ayon - Last Filed: 03/24/17 20:57> *Physical Exam - Vital Signs Last Vital Signs Temp Pulse Resp BP Pulse Ox 97.9 F 59 L 18 126/89 100 03/24/17 18:43 03/24/17 18:43 03/24/17 18:43 03/24/17 18:43 03/24/17 18:43 - Physical Exam Comments: 03/24/17 21:01 Well developed, well nourished. Awake and alert. No acute distress. HEENT: Normocephalic, atraumatic. PERRLA, EOMI. No conjunctival pallor. Sclera are non- icteric. Moist mucous membranes. Oropharynx is clear. NECK: Supple. Full ROM. No JVD. Carotid pulses 2+ and symmetric, without bruits. No thyromegaly. No lymphadenopathy. CARDIOVASCULAR: Regular rate and rhythm. No murmurs, rubs, or gallops. Distal pulses are 2+ and symmetric. PULMONARY: No evidence of respiratory distress. Lungs clear to auscultation bilaterally. No wheezing, rales or rhonchi. ABDOMINAL: Soft. Non-tender. Non-distended. No rebound or guarding. No organomegaly. Normoactive bowel sounds. MUSCULOSKELETAL Normal range of motion at all joints. +right-sided CVA tenderness. EXTREMITIES: No cyanosis. No clubbing. No edema. No calf tenderness. SKIN: Warm and dry. Normal capillary refill. No rashes. No jaundice. NEUROLOGICAL: Alert, awake, appropriate. PSYCHIATRIC: Cooperative. Good eye contact. Appropriate mood and affect. <Lucretia Ayon - Last Filed: 03/24/17 20:57> - Vital Signs Last Vital Signs Temp Pulse Resp BP Pulse Ox 97.9 F 59 L 18 126/89 100 03/24/17 18:43 03/24/17 18:43 03/24/17 18:43 03/24/17 18:43 03/24/17 18:43 <Heraclio Hodgson - Last Filed: 03/24/17 23:55> ED Treatment Course - RADIOLOGY Radiology Studies Ordered: Category Date Time Status SPIRAL- RENAL-STONE CT [CT] Stat CT Scan 03/24/17 20:42 Ordered <Heraclio Hodgson - Last Filed: 03/24/17 23:55> Medical Decision Making - Medical Decision Making 03/24/17 23:55 Dr. Hodgson: The scribe's documentation has been prepared under my direction and personally reviewed by me in its entirery. I confirm that the note above accurately reflects all work, treatment, procedures, and medical decision making performed by me. <Heraclio Hodgson - Last Filed: 03/24/17 23:55> *DC/Admit/Observation/Transfer - Attestations Scribe Attestion: 03/24/17 21:03 Documentation prepared by Lucretia Ayon, acting as medical director/head team physician for Heraclio Hodgson MD. <Lucretia Ayon - Last Filed: 03/24/17 20:57> - Discharge Dispostion Admit: No <Heraclio Hodgson - Last Filed: 03/24/17 23:55> Diagnosis at time of Disposition: Renal colic, Right flank pain - Discharge Dispostion Disposition: HOME Condition at time of disposition: Stable - Referrals Referrals: Annalisa Shrestha [Primary Care Provider] - Behzad Conte MD., MD [Staff Physician] - - Patient Instructions Printed Discharge Instructions: DI for Kidney Stones
[2017-03-24 21:01] LABS: URINE APPEARANCE CLEAR; URINE BILIRUBIN NEGATIVE (NEGATIVE); URINE BLOOD 3+ (NEGATIVE); URINE COLOR STRAW; URINE GLUCOSE (UA) NEGATIVE (NEGATIVE); URINE KETONE NEGATIVE (NEGATIVE); URINE LEUK ESTERASE NEGATIVE (NEGATIVE); URINE NITRITE NEGATIVE (NEGATIVE); URINE PROTEIN NEGATIVE (NEGATIVE); URINE UROBILINOGEN NEGATIVE E.U./dl (0.2-1.0)
[2017-03-24 21:03] LABS: URINE MUCUS RARE; URINE RBC 280 /hpf (0-3); URINE WBC 4 /hpf (3-5)
[2017-03-24] MEDS ORDERED: KETOROLAC TROMETHAMINE 30 MG/1 ML VIAL IVPUSH ONE (21:43)
[2017-03-24] MEDS ORDERED: ONDANSETRON 4 MG/2 ML VIAL IVPUSH STA (21:43)
[2017-03-24] MEDS ORDERED: morphine CARPU-JECT 2 MG/1 ML DISP.SYRIN IVPUSH ONE (21:43)
[2017-03-24] MEDS ORDERED: morphine CARPU-JECT 2 MG/1 ML DISP.SYRIN ONE (21:45)
[2017-03-25] MEDS ORDERED: OXYCODONE/APAP 5/325MG COMBO TABLET PO ONE (00:26)
[2017-03-25] MEDS ORDERED: OXYCODONE/APAP 5/325MG COMBO TABLET ONE (00:30)
[2017-03-25 00:45] VITALS: BP 130/98; PULSE 54
== END 2017-03-25 00:45 | disposition home or self-care (01) ==
LOC: JER 18:32
PROC: 3E033NZ Introduction of Analgesics, Hypnotics, Sedatives into Peripheral Vein, Percutaneous Approach (ICD-10-PCS; principal; 2017-03-24)
PROC: 3E0333Z Introduction of Anti-inflammatory into Peripheral Vein, Percutaneous Approach (ICD-10-PCS; 2017-03-24)
PROC: 3E033GC Introduction of Other Therapeutic Substance into Peripheral Vein, Percutaneous Approach (ICD-10-PCS; 2017-03-24)
DX: N23 Unspecified renal colic (principal); Z87.442 Personal history of urinary calculi; Z87.891 Personal history of nicotine dependence
CPT/HCPCS: 74176; 81003; 81015; 87086; 99283-25

== ENCOUNTER 2017-04-10 22:42 | Emergency (ER) | payer OTHER ==
--- NOTE | 2017-04-10 22:48 | PDOC ---
History of Present Illness - General Chief Complaint: Pain, Acute Stated Complaint: RIGHT FLANK PAIN Time Seen by Provider: 04/10/17 22:48 - History of Present Illness Initial Comments: This 51-year-old man with a long history of kidney stones presents with 1 day history of right flank pain. Patient was seen at [facility] 3 weeks ago with similar history. At that time, 2 stones were seen within the right kidney pelvis; one stone was estimated to be 8 mm and the other to be 6 mm. Since then, he is pain had been tolerable until this morning when severe pain recurred. He has had some nausea without vomiting today. He denies urinary frequency, gross hematuria, dysuria. There has been no fever or chills He has not been able to follow-up with his urologist, stating that the earliest appointment he could be seen by the urologist was on April 20. Past History - Past Medical History Allergies/Adverse Reactions: Allergies Allergy/AdvReac Type Severity Reaction Status Date / Time Cat/Feline Product Allergy Verified 03/24/17 18:43 Derivatives No Known Drug Allergies Allergy Verified 03/24/17 18:43 Home Medications: Ambulatory Orders Ibuprofen 800 mg PO TID #30 tablet 03/24/17 Oxycodone HCl/Acetaminophen [Percocet 5-325 mg Tablet] 1 - 2 tab PO Q4H #20 tablet MDD 4 03/24/17 Oxycodone HCl/Acetaminophen [Percocet 5-325 mg Tablet] 1 tab PO Q6H PRN #20 tablet MDD 4 tabs 04/11/17 Kidney Stones: Yes (MULTIPLE LITHOTRIPSY) - Immunization History Td Vaccination: Yes TDAP Vaccination: No Immunization Up to Date: No - Psycho/Social/Smoking Cessation Hx Anxiety: No Suicidal Ideation: No Smoking Status: Yes Smoking History: Former smoker Years of Tobacco Use: 20 Have you smoked in the past 12 months: No Number of Cigarettes Smoked Daily: 0 If you are a former smoker, when did you quit?: 4 years ago Cigars Per Day: 0 Hx Alcohol Use: No Drug/Substance Use Hx: No Substance Use Type: None Abd/GI Specific PMHX - Complaint Specific PMHX Colitis: No Diverticulitis: No Gall Bladder Disease: No GERD: No Hepatitis: No Irritable Bowel Synd (IBS): No Pancreatitis: No GI Ulcer Disease: No Review of Systems - Review of Systems Able to Perform ROS?: Yes Comments:: 12 point review of systems is negative except for what is noted in the history of present illness *Physical Exam - Physical Exam Comments: GENERAL: Adult male, in moderate distress secondary to right flank pain HEAD: Normal with no signs of trauma. EYES: PERRLA, EOMI, sclera anicteric, conjunctiva clear. ENT: Ears normal, nares patent, oropharynx clear without exudates. Dry mucous membranes. NECK: Normal range of motion, supple without lymphadenopathy, JVD, or masses. LUNGS: Breath sounds equal, clear to auscultation bilaterally. No wheezes, and no crackles. HEART:Regular rate and rhythm, normal S1 and S2 without murmur, rub or gallop. ABDOMEN:.normal bowel sounds moderate right flank tenderness without rebound/ guarding EXTREMITIES: Normal range of motion, no edema. No clubbing or cyanosis. No erythema, or tenderness. NEUROLOGICAL: Cranial nerves II through XII grossly intact. Normal speech. No focal neurological deficits. SKIN: Warm, Dry, normal turgor, no rashes or lesions noted. ED Treatment Course - LABORATORY CBC & Chemistry Diagram: 04/10/17 22:52 04/10/17 22:52 Progress Note - Progress Note Progress Note: 51-year-old man with a long history of kidney stones presents with one-day history of of recurrent right flank pain. He had been seen at [facility] 3 weeks ago with renal colic and 2 stones were seen in the lower pole of the right kidney at that time. Patient had CBC/chemistry profile/urinalysis performed and 1 L normal saline; 30 mg Toradol IV given. Urinalysis positive for 3+ blood (15-20 RBCs/hpf); remainder of laboratory evaluation is essentially normal. Patient has persistent pain after IV Toradol. Patient given milligrams Dilaudid IV. Renal stone protocol CT performed. Preliminary interpretation by Imaging storage solutions architect: Progression of 1 of stone seen on previous CT scan. One of the stones has now progressed to the renal pelvis. He had a stone remains in the right lower pole. There is no ureteral stone and no hydronephrosis/hydroureter present. Results discussed with the patient. Patient still has some pain after Dilaudid 1 mg IV. Patient will be given a second dose of Dilaudid 1 mg IV. Patient now reports that majority of the pain has resolved. He will be discharged with instructions to drink plenty of fluids as previously. He continues to take Flomax 0.4 mg daily as prescribed. He will take ibuprofen/sedimentation/naproxen OTC as needed for mild-to- moderate pain. Percocet 5/325 will be prescribed for severe pain: To be taken one tablet every 6 hours as needed for severe pain (#20). Patient will return to the emergency room if he has persistent pain or develops vomiting/fever. Patient states that he may pursue seeing another urologist. He should also try calling his current urology group's office tomorrow to move up his follow-up appointment (instead of April 20) *DC/Admit/Observation/Transfer Diagnosis at time of Disposition: Renal colic - Discharge Dispostion Disposition: HOME Condition at time of disposition: Stable - Prescriptions Prescriptions: Oxycodone HCl/Acetaminophen [Percocet 5-325 mg Tablet] 1 tab PO Q6H PRN #20 tablet MDD 4 tabs PRN Reason: Severe Pain - Patient Instructions Printed Discharge Instructions: DI for Kidney Stones Additional Instructions: Continue to drink plenty of fluids Take Flomax as previously prescribed motrin/aleve/tylenol as needed for mild pain Percocet 1 tablet every 6 hours as needed for severe pain Follow-up with urologist within the next 5 days Return to ER if you have severe, persistent pain or vomiting
[2017-04-10] MEDS ORDERED: KETOROLAC TROMETHAMINE 30 MG/1 ML VIAL IVPUSH ONE (22:50)
[2017-04-10] MEDS ORDERED: SODIUM CHLORIDE 1,000 ML IV STA (22:50)
[2017-04-10 22:56] VITALS: PULSE 56; TEMP 98; BMI 22.1
[2017-04-10 22:59] LABS: PH,URINE 5.5 (4.5-8); URINE BILIRUBIN 1+ (NEGATIVE); URINE GLUCOSE (UA) Negative (NEGATIVE); URINE KETONE Trace (NEGATIVE); URINE LEUK ESTERASE Trace (NEGATIVE); URINE NITRITE Negative (NEGATIVE); URINE UROBILINOGEN 0.2 E.U/dl (0.2-1.0)
[2017-04-10 23:01] LABS: URINE BLOOD 3 (NEGATIVE); URINE COLOR YELLOW; URINE PROTEIN 2+ (NEGATIVE)
[2017-04-10 23:04] LABS: BASOPHIL 2.5 % (0-2.0); EOSINOPHIL 4.4 % (0-4.5); MCH 26.7 pg (25.7-33.7); MCHC 32.5 g/dl (32.0-35.9); MEAN PLT VOLUME 7.9 fl (7.5-11.1); NEUTROPHILS 47.2 % (42.8-82.8); PLATELET COUNT 286 K/MM3 (134-434); RDW 12.7 % (11.9-15.9); WHITE BLOOD COUNT 5.1 K/mm3 (4.0-10.8)
[2017-04-10] MEDS ORDERED: HYDROmorphone HCL CARPU-JECT 1 MG/1 ML DISP.SYRIN ONE (23:04)
[2017-04-10 23:07] LABS: URINE APPEARANCE HAZY; URINE RBC 15-20 /hpf (0-3)
[2017-04-10 23:08] LABS: CALCIUM OXALATE CRYSTALS FEW /hpf (NONE SEEN); URINE BACTERIA FEW /hpf (NEGATIVE)
[2017-04-10 23:09] VITALS: BP 111/67
[2017-04-10] MEDS ORDERED: HYDROmorphone HCL CARPU-JECT 1 MG/1 ML DISP.SYRIN IVPUSH ONE (23:09)
[2017-04-10 23:15] LABS: ALBUMIN 4.1 g/dl (3.5-5.0); ALK PHOS 85 U/L (32-92); ANION GAP 4 (8-16); BILIRUBIN,TOTAL 0.5 mg/dl (0.2-1.0); CALCIUM 9.4 mg/dl (8.4-10.2); CO2 27 mmol/L (22-28); GLUCOSE,RANDOM 143 mg/dl (74-106); SGOT/AST 19 U/L (10-42); SGPT/ALT 12 U/L (10-40); TOT PROT 7.1 g/dl (6.4-8.3)
[2017-04-11] MEDS ORDERED: HYDROmorphone HCL CARPU-JECT 1 MG/1 ML DISP.SYRIN IVPUSH ONE (00:37)
[2017-04-11] MEDS ORDERED: HYDROmorphone HCL CARPU-JECT 1 MG/1 ML DISP.SYRIN ONE (00:38)
== END 2017-04-11 00:59 | disposition home or self-care (01) ==
LOC: FER 22:42
PROC: 3E033NZ Introduction of Analgesics, Hypnotics, Sedatives into Peripheral Vein, Percutaneous Approach (ICD-10-PCS; principal; 2017-04-10)
PROC: 3E0333Z Introduction of Anti-inflammatory into Peripheral Vein, Percutaneous Approach (ICD-10-PCS; 2017-04-10)
PROC: 3E0337Z Introduction of Electrolytic and Water Balance Substance into Peripheral Vein, Percutaneous Approach (ICD-10-PCS; 2017-04-10)
DX: N23 Unspecified renal colic (principal); Z87.891 Personal history of nicotine dependence; Z87.442 Personal history of urinary calculi
CPT/HCPCS: 36415; 74176; 80053; 81003; 81015; 85025; 99281-25

== ENCOUNTER 2017-04-12 18:38 | Emergency (ER) | payer OTHER ==
[2017-04-12 18:43] VITALS: BMI 36.9
[2017-04-12 18:49] VITALS: BP 126/90; PULSE 62; TEMP 98.1
[2017-04-12 19:12] LABS: URINE APPEARANCE Clear; URINE BILIRUBIN Negative (NEGATIVE); URINE GLUCOSE (UA) Negative (NEGATIVE); URINE KETONE Trace (NEGATIVE); URINE LEUK ESTERASE Trace (NEGATIVE); URINE NITRITE Negative (NEGATIVE); URINE UROBILINOGEN 0.2 E.U/dl (0.2-1.0)
[2017-04-12 19:16] LABS: URINE BLOOD 1+ (NEGATIVE); URINE PROTEIN 1+ (NEGATIVE)
[2017-04-12 19:17] LABS: URINE COLOR YELLOW
--- NOTE | 2017-04-12 19:30 | PDOC ---
History of Present Illness - History of Present Illness Initial Comments: 04/12/17 19:39 The patient is a 51 year old male, with a significant past medical history of kidney stones, who presents to the emergency department with increased nausea and pain to his right flank, groin and abdomen after recently being seen in the ED and having a CT scan revealing a 7mm stone in the right renal pelvis and a 6mm stone in the right lower pole. He reports taking one percocet at 3pm today with no relief of his pain. He admits to taking a second percocet shortly after when the pain did not resolve, however, still denies pain relief. He states he is also diaphoretic and nauseous, but denies episode of emesis. He also states he has not taken his Flomax. He reports having an appointment with the urologist on 04/20/17. He denies chest pain, shortness of breath, headache and dizziness. He denies fever, chills, vomit, diarrhea and constipation. He denies dysuria, frequency, urgency and hematuria. PAST MEDICAL HISTORY: kidney stones PAST SURGICAL HISTORY: no significant history FAMILY HISTORY: no pertinent history SOCIAL HISTORY: Pt lives with family and is employed. MEDICATIONS: reviewed ALLERGIES: As per nursing notes ROS General: No fevers or chills, no weakness, no weight loss HEENT: No change in vision. No sore throat,. No ear pain Cardiovascular: No chest pain or shortness of breath Respiratory:No cough, or wheezing. Gastrointestinal: (+) nausea, right flank pain, right abdominal pain, and right groin pain. no vomiting, diarrhea or constipation, No rectal bleeding Genitourinary: No dysuria, hematuria, or frequency Musculoskeletal: No joint or muscle pain or swelling Neurologic: No headache, vertigo, dizziness or loss of consciousness Psychiatric: No depression Skin: No rashes or easy bruising Endocrine: no increased thirst or abnormal weight change Allergic: no skin or latex allergy All other systems reviewed and normal Physical Exam: General: Well-nourished well-developed individual, no acute distress HEENT: Throat: Normal, tonsils normal, no erythema or exudate Neck: Supple, no meningeal signs, no lymphadenopathy Eyes::Pupils equal reactive and round, extraocular motion intact Chest: Nontender to palpation Cardiac: S1-S2 normal, regular rate and rhythm, no murmurs rubs or gallops Respiratory: Lungs clear to auscultation bilateral Abdomen: Soft, nondistended, normal bowel sounds, nontender to palpation diffusely Extremities: Warm, dry, no cyanosis, clubbing, or edema Skin: No rashes Neuro: Alert and oriented x3, nonfocal exam, grossly intact, normal gait Psych: Normal mood and affect <Ebony Thibodeaux - Last Filed: 04/12/17 19:39> - General History Source: Patient Exam Limitations: No Limitations - History of Present Illness Initial Comments: A portion of this note was documented by scribe services under my direction. I have reviewed the details of the note, within reason, and agree with the documentation. The case summary and management plan written by me. 04/12/17 Patient left ED prior to completion of workup. This is a 51-year-old male who has been here twice for pain secondary to kidney stones however on review of his workup prior to this visit patient on his first visit had 2 nonobstructing stones in the lower pole of the kidney which would not be causing pain and on his second visit yesterday one stone was in the lower pole of the kidney and the other stone was in the pelvis with some mild hydronephrosis. Patient was complaining of pain in his groin area. However patient came in requesting Dilaudid for the pain and then promptly fell asleep on the stretcher. Patient had taken 2 Percocet prior to coming in. Patient's significant other came in and woke him up and then came out insisting that he was in terrible pain and needed to be medicated with pain medication. I explained this to patient and his significant other that he had just been sleeping was comfortable and that I was uncomfortable giving him any more narcotic pain medication as he had just taken some prior to coming in. I expressed that I would give him some gnawing, narcotic pain medication and wanted to get some imaging to reevaluate for the stone was prior to giving narcotic medication. At which point patient became angry and demanded discharge from the emergency department. <Raafel White I - Last Filed: 04/12/17 22:42> - General Stated Complaint: right flank pain,hx of renal stones Time Seen by Provider: 04/12/17 19:22 Past History <Ebony Thibodeaux - Last Filed: 04/12/17 19:39> - Past Medical History Kidney Stones: Yes (MULTIPLE LITHOTRIPSY) - Immunization History Td Vaccination: Yes TDAP Vaccination: No Immunization Up to Date: No - Psycho/Social/Smoking Cessation Hx Anxiety: No Suicidal Ideation: No Smoking Status: Yes Smoking History: Former smoker Years of Tobacco Use: 20 Have you smoked in the past 12 months: No Number of Cigarettes Smoked Daily: 0 If you are a former smoker, when did you quit?: 4 years ago Cigars Per Day: 0 Information on smoking cessation initiated: No Hx Alcohol Use: No Drug/Substance Use Hx: No Substance Use Type: None <Rafael White I - Last Filed: 04/12/17 22:42> - Past Medical History Allergies/Adverse Reactions: Allergies Allergy/AdvReac Type Severity Reaction Status Date / Time Cat/Feline Product Allergy Verified 04/12/17 18:39 Derivatives No Known Drug Allergies Allergy Verified 04/12/17 18:39 Home Medications: Ambulatory Orders Ibuprofen 800 mg PO TID #30 tablet 03/24/17 Oxycodone HCl/Acetaminophen [Percocet 5-325 mg Tablet] 1 - 2 tab PO Q4H #20 tablet MDD 4 03/24/17 Oxycodone HCl/Acetaminophen [Percocet 5-325 mg Tablet] 1 tab PO Q6H PRN #20 tablet MDD 4 tabs 04/11/17 Abd/GI Specific PMHX - Complaint Specific PMHX Colitis: No Diverticulitis: No Gall Bladder Disease: No GERD: No Hepatitis: No Irritable Bowel Synd (IBS): No Pancreatitis: No GI Ulcer Disease: No <Rafael White I - Last Filed: 04/12/17 22:42> *Physical Exam - Vital Signs Last Vital Signs Temp Pulse Resp BP Pulse Ox 98.1 F 62 18 126/90 99 04/12/17 18:41 04/12/17 18:41 04/12/17 18:41 04/12/17 18:41 04/12/17 18:41 <Ebony Thibodeaux - Last Filed: 04/12/17 19:39> - Vital Signs Last Vital Signs Temp Pulse Resp BP Pulse Ox 98.1 F 62 18 126/90 99 04/12/17 18:41 04/12/17 18:41 04/12/17 18:41 04/12/17 18:41 04/12/17 18:41 <Rafael White I - Last Filed: 04/12/17 22:42> ED Treatment Course - ADDITIONAL ORDERS Additional order review: Laboratory Results 04/12/17 19:07 Urine Color Yellow Urine Appearance Clear Urine pH 6.0 Ur Specific Virgin 1.025 Urine Protein 1+ H Urine Glucose (UA) Negative Urine Ketones Trace Urine Blood 1+ H Urine Nitrite Negative Urine Bilirubin Negative Urine Urobilinogen 0.2 e.u/dl Ur Leukocyte Esterase Trace <Ebony Thibodeaux - Last Filed: 04/12/17 19:39> - ADDITIONAL ORDERS Additional order review: Laboratory Results 04/12/17 19:07 Urine Color Yellow Urine Appearance Clear Urine pH 6.0 Ur Specific Virgin 1.025 Urine Protein 1+ H Urine Glucose (UA) Negative Urine Ketones Trace Urine Blood 1+ H Urine Nitrite Negative Urine Bilirubin Negative Urine Urobilinogen 0.2 e.u/dl Ur Leukocyte Esterase Trace <Rafael White I - Last Filed: 04/12/17 22:42> *DC/Admit/Observation/Transfer - Attestations Scribe Attestion: 04/12/17 19:40 Documentation prepared by Ebony Thibodeaux, acting as medical reception specialist for Rafael White MD <Ebony Thibodeaux - Last Filed: 04/12/17 19:39> <Rafael White I - Last Filed: 04/12/17 22:42> Diagnosis at time of Disposition: Eloped - Discharge Dispostion Disposition: ELOPED Condition at time of disposition: Fair - Post Discharge Activity Work/School Note: Back to Work
[2017-04-12] MEDS ORDERED: SODIUM CHLORIDE 1,000 ML IV ONE (19:42)
[2017-04-12 20:04] LABS: URINE RBC 0-1 /hpf (0-3)
[2017-04-12 20:05] LABS: URINE BACTERIA FEW /hpf (NEGATIVE)
== END 2017-04-12 20:08 | disposition left against medical advice (07) ==
LOC: FER 18:38
PROC: 3E0337Z Introduction of Electrolytic and Water Balance Substance into Peripheral Vein, Percutaneous Approach (ICD-10-PCS; principal; 2017-04-12)
DX: Z53.21 Procedure and treatment not carried out due to patient leaving prior to being seen by health care provider (principal); Z87.442 Personal history of urinary calculi; Z87.891 Personal history of nicotine dependence
CPT/HCPCS: 81003; 81015; 87086; 99283-25

== ENCOUNTER 2017-05-17 23:46 | Inpatient (IN) | payer OTHER ==
[2017-05-17 23:55] VITALS: BMI 36.9
--- NOTE | 2017-05-18 00:21 | PDOC ---
History of Present Illness - General History Source: Patient Exam Limitations: No Limitations - History of Present Illness Initial Comments: 05/18/17 00:24 The patient is a 52 year old male with a significant past medical history of kidney stones who presents to the ED with complaints of right flank pain since earlier today. Patient reports right sided flank pain radiating to his groin. He also reports 2 episodes of vomiting earlier today. Patient states his present symptoms feel similar to his previous episodes of kidney stones. Denies fevers or chills. Denies dysuria or changes in urinary output. Denies abdominal pain or diarrhea. Denies chest pain or shortness of breath. Denies any other symptoms. <Devin Irvin - Last Filed: 05/18/17 04:33> - General History Source: Patient <MikieHeraclio diehl - Last Filed: 05/18/17 19:52> - General Chief Complaint: Pain, Acute Stated Complaint: PAIN, ACUTE Time Seen by Provider: 05/18/17 00:18 Past History <Devin Irvin - Last Filed: 05/18/17 04:33> - Past Medical History Kidney Stones: Yes (MULTIPLE LITHOTRIPSY) - Immunization History Td Vaccination: Yes TDAP Vaccination: No Immunization Up to Date: No - Psycho/Social/Smoking Cessation Hx Anxiety: No Suicidal Ideation: No Smoking Status: Yes Smoking History: Never smoked Years of Tobacco Use: 20 Have you smoked in the past 12 months: No Number of Cigarettes Smoked Daily: 0 If you are a former smoker, when did you quit?: 4 years ago Cigars Per Day: 0 Information on smoking cessation initiated: No Hx Alcohol Use: No Drug/Substance Use Hx: Yes (Marijuana) Substance Use Type: None <Heraclio Hodgson - Last Filed: 05/18/17 19:52> - Past Medical History Allergies/Adverse Reactions: Allergies Allergy/AdvReac Type Severity Reaction Status Date / Time Cat/Feline Product Allergy Verified 05/17/17 23:53 Derivatives No Known Drug Allergies Allergy Verified 05/17/17 23:53 Home Medications: Ambulatory Orders NK [No Known Home Medication] 05/18/17 Review of Systems - Review of Systems Able to Perform ROS?: Yes Comments:: 05/18/17 00:25 CONSTITUTIONAL: No reported: Fever, Chills, Diaphoresis, Generalized Weakness, Malaise, Loss of Appetite HEENT: No reported: Rhinorrhea, Nasal Congestion, Throat Pain, Throat Swelling, Difficulty Swallowing, Mouth Swelling, Ear Pain, Eye Pain, Visual Changes CARDIOVASCULAR: No reported: Chest Pain, Syncope, Palpitations, Irregular Heart Rate, Lightheadedness, Peripheral Edema RESPIRATORY: No reported: Cough, Shortness of Breath, SOB with Exertion, Orthopnea, Wheezing , Stridor, Hemoptysis GASTROINTESTINAL: + vomiting No reported: Abdominal pain, Abdominal Distension,, Diarrhea, Constipation, Melena, Hematochezia GENITOURINARY: + flank pain No reported: Dysuria, Frequency, Urgency, Hesitancy, Genital Pain MUSCULOSKELETAL: No reported: Myalgia, Arthralgia, Joint Swelling, Back pain, Neck Pain SKIN: No reported: Rash, Itching, Pallor HEMEATOLOGIC/IMMUNOLOGIC: No reported: Easy Bleeding, Easy Bruising, Lymphadenopathy, Frequent infections ENDOCRINE: No reported: Unexplained Weight Gain, Unexplained Weight Loss, Heat Intolerance , Cold Intolerance NEUROLOGIC: No reported: Headache, Focal Weakness, Paresthesias, Vertigo, Lightheadedness, Unsteady Gait, Seizure, Mental Status Changes, Incontinence PSYCHIATRIC: No reported: Anxiety, Depression All Other Systems: Reviewed and Negative <Devin Irvin - Last Filed: 05/18/17 04:33> *Physical Exam - Vital Signs Last Vital Signs Temp Pulse Resp BP Pulse Ox 97.5 F L 58 L 20 150/94 100 05/17/17 23:53 05/17/17 23:53 05/17/17 23:53 05/17/17 23:53 05/17/17 23:53 - Physical Exam Comments: 05/18/17 00:25 GENERAL: Well developed, well nourished. Awake and alert. No acute distress. HEENT: Normocephalic, atraumatic. PERRLA, EOMI. No conjunctival pallor. Sclera are non- icteric. Moist mucous membranes. Oropharynx is clear. NECK: Supple. Full ROM. No JVD. Carotid pulses 2+ and symmetric, without bruits. No thyromegaly. No lymphadenopathy. CARDIOVASCULAR: Regular rate and rhythm. No murmurs, rubs, or gallops. Distal pulses are 2+ and symmetric. PULMONARY: No evidence of respiratory distress. Lungs clear to auscultation bilaterally. No wheezing, rales or rhonchi. ABDOMINAL: Soft. Non-tender. Non-distended. No rebound or guarding. No organomegaly. Normoactive bowel sounds. MUSCULOSKELETAL: + right cva tenderness, tenderness in the groin. Normal range of motion at all joints. No bony deformities or tenderness. EXTREMITIES: No cyanosis. No clubbing. No edema. No calf tenderness. SKIN: Warm and dry. Normal capillary refill. No rashes. No jaundice. NEUROLOGICAL: Alert, awake, appropriate. Cranial nerves 2-12 intact. No deficits to light touch and temperature in face, upper extremities and lower extremities. No motor deficits in the in face, upper extremities and lower extremities. Normoreflexic in the upper and lower extremities. Normal speech. Toes are down- going bilaterally. Gait is normal without ataxia. PSYCHIATRIC: Cooperative. Good eye contact. Appropriate mood and affect. <Devin Irvin - Last Filed: 05/18/17 04:33> - Vital Signs Last Vital Signs Temp Pulse Resp BP Pulse Ox 97.5 F L 58 L 20 150/94 100 05/17/17 23:53 05/17/17 23:53 05/17/17 23:53 05/17/17 23:53 05/17/17 23:53 <Heraclio Hodgson - Last Filed: 05/18/17 19:52> Heart Score/ECG Review #1 05/18/17 04:33 Vent. rate 55 bpm ID inerval 174 ms QRS duration 92 ms Sinus bradycardia <Devin Irvin - Last Filed: 05/18/17 04:33> ED Treatment Course - LABORATORY CBC & Chemistry Diagram: 05/18/17 03:02 05/18/17 03:02 - RADIOLOGY Radiograph Interpretation: 05/18/17 03:05 EXAM: CT abdomen without contrast and CT pelvis without contrast IMPRESSION: Right kidney renal pelvis 9 mm stone with mild right hydronephrosis consistent with partial intermittent obstruction of the right ureteropelvic junction. Right kidney nonobstructing nephrolithiasis. Reported by: Imaging safety and occupational health manager <Devin Irvin - Last Filed: 05/18/17 04:33> - LABORATORY CBC & Chemistry Diagram: 05/18/17 03:02 05/18/17 03:02 <Heraclio Hodgson - Last Filed: 05/18/17 19:52> Medical Decision Making - Medical Decision Making 05/18/17 19:52 Dr. Hodgson: The scribe's documentation has been prepared under my direction and personally reviewed by me in its entirery. I confirm that the note above accurately reflects all work, treatment, procedures, and medical decision making performed by me. <Heraclio Hodgson - Last Filed: 05/18/17 19:52> *DC/Admit/Observation/Transfer - Attestations Scribe Attestion: 05/18/17 00:25 Documentation prepared by Devin Irvin, acting as medical office supervisor for Heraclio Hodgson MD <Devin Irvin - Last Filed: 05/18/17 04:33> - Discharge Dispostion Admit: Yes <Heraclio Hodgson - Last Filed: 05/18/17 19:52> Diagnosis at time of Disposition: Renal colic, Renal colic on right side
[2017-05-18] MEDS ORDERED: IBUPROFEN 400 MG TABLET (FP) PO ONE ×2 (00:22→00:27)
[2017-05-18 01:40] LABS: URINE APPEARANCE TURBID; URINE BILIRUBIN NEGATIVE (NEGATIVE); URINE BLOOD 3+ (NEGATIVE); URINE COLOR YELLOW; URINE GLUCOSE (UA) NEGATIVE (NEGATIVE); URINE KETONE NEGATIVE (NEGATIVE); URINE NITRITE NEGATIVE (NEGATIVE); URINE UROBILINOGEN NEGATIVE mg/dL (0.2-1.0)
[2017-05-18 01:46] LABS: URINE LEUK ESTERASE 1+ (NEGATIVE); URINE PROTEIN 2+ (NEGATIVE)
[2017-05-18 01:55] LABS: URINE BACTERIA FEW /hpf (NONE SEEN); URINE MUCUS FEW; URINE RBC 1223 /hpf (0-3); URINE WBC 31 /hpf (3-5)
[2017-05-18] MEDS ORDERED: morphine CARPU-JECT 2 MG/1 ML DISP.SYRIN IVPUSH ONE ×2 (03:02→05:31)
[2017-05-18] MEDS ORDERED: LEVOFLOXACIN 500 MG IVPB 100 ML IVPB ONE ×2 (03:03→03:05)
[2017-05-18] MEDS ORDERED: SODIUM CHLORIDE 1,000 ML IV STA (03:03)
[2017-05-18] MEDS ORDERED: ONDANSETRON 4 MG/2 ML VIAL IVPUSH STA (03:03)
[2017-05-18] MEDS ORDERED: ONDANSETRON 4 MG/2 ML VIAL ONE (03:04)
[2017-05-18] MEDS ORDERED: morphine CARPU-JECT 4 MG/1 ML DISP.SYRIN ONE ×2 (03:04→05:34)
[2017-05-18 03:42] LABS: BASOPHIL 0.5 % (0-2.0); EOSINOPHIL 1.5 % (0-4.5); MCH 27.2 pg (25.7-33.7); MCHC 33.3 g/dl (32.0-35.9); MEAN CELL VOLUME 81.7 fl (80-96); MEAN PLT VOLUME 7.7 fl (7.5-11.1); NEUTROPHILS 66.4 % (42.8-82.8); PLATELET COUNT 257 K/MM3 (134-434); RDW 13.6 % (11.9-15.9); WHITE BLOOD COUNT 6.4 K/mm3 (4.0-10.0)
[2017-05-18 03:52] LABS: INR 1.15 (0.82-1.09); PROTHROMBIN TIME (PATIENT) 12.7 SEC (9.98-11.88)
[2017-05-18 04:03] LABS: ALK PHOS 102 U/L (45-117); ANION GAP 9 (8-16); BILIRUBIN,TOTAL 0.3 mg/dL (0.2-1.0); CALCIUM 9.3 mg/dL (8.5-10.1); CO2 27 mmol/L (21-32); CREATININE 1.1 mg/dL (0.7-1.3); GLUCOSE,RANDOM 127 mg/dL (74-106); SGOT/AST 13 U/L (15-37); SGPT/ALT 38 U/L (12-78); TOT PROT 7.2 g/dl (6.4-8.2)
[2017-05-18] MEDS ORDERED: morphine CARPU-JECT 2 MG/1 ML DISP.SYRIN IVPUSH PRN (05:41)
[2017-05-18] MEDS ORDERED: ONDANSETRON 4 MG/2 ML VIAL IVPB PRN (05:41)
--- NOTE | 2017-05-18 05:41 | HP ---
CHIEF COMPLAINT: right flank pain PCP: [facility], no current urologist HISTORY OF PRESENT ILLNESS: This is a 52 year old male with a past medical history of kidney stone s/p mult episodes lithotripsy who presents to the ED with Right flank pain. Seen in ED for similar complaint on 04/10 & 04/12 as well. Was advised to f/u with urologist but he couldn't make his scheduled appointment on April 18 because he was "sick" . Pt states that he had 2 episodes of vomiting earlier today as well. ER course was notable for: (1) CT with obstructing 9mm R renal pelvis stone with R hydronephrosis Recent Travel: pt denies PAST MEDICAL HISTORY: kidney stones s/p lithotripsy 15-20 times, last 07/2014 PAST SURGICAL HISTORY: R ureteral stent 2001 Social History: Smoking: quit 2011 Alcohol: pt denies Drugs: occ marijuana Family History: mother alive with asthma father age 67, cancer, unknown type-was "wrapped around her esophagus and in her chest" as per pt 2 brothers, one with kidney stones 1 sister with seizures 3 sons, 1 daughter all alive and well, no medical problems Allergies Cat/Feline Product Derivatives Allergy (Verified 05/17/17 23:53) No Known Drug Allergies Allergy (Verified 05/17/17 23:53) HOME MEDICATIONS: 3 Medication Instructions Recorded Ibuprofen 800 mg PO TID #30 tablet 03/24/17 Oxycodone HCl/Acetaminophen 1 - 2 tab PO Q4H #20 tablet MDD 4 03/24/17 [Percocet 5-325 mg Tablet] Oxycodone HCl/Acetaminophen 1 tab PO Q6H PRN #20 tablet MDD 4 04/11/17 [Percocet 5-325 mg Tablet] tabs REVIEW OF SYSTEMS CONSTITUTIONAL: Absent: fever, chills, diaphoresis, generalized weakness, malaise, loss of appetite, weight change HEENT: Absent: rhinorrhea, nasal congestion, throat pain, throat swelling, difficulty swallowing, mouth swelling, ear pain, eye pain, visual changes CARDIOVASCULAR: Absent: chest pain, syncope, palpitations, irregular heart rate, lightheadedness , peripheral edema RESPIRATORY: Absent: cough, shortness of breath, dyspnea with exertion, orthopnea, wheezing, stridor, hemoptysis GASTROINTESTINAL: Present: nausea, vomiting Absent: abdominal pain, abdominal distension, diarrhea, constipation, melena, hematochezia GENITOURINARY: Present: flank pain, groin pain Absent: dysuria, frequency, urgency, hesitancy, hematuria, genital pain MUSCULOSKELETAL: Absent: myalgia, arthralgia, joint swelling, back pain, neck pain SKIN: Absent: rash, itching, pallor HEMATOLOGIC/IMMUNOLOGIC: Absent: easy bleeding, easy bruising, lymphadenopathy, frequent infections ENDOCRINE: Absent: unexplained weight gain, unexplained weight loss, heat intolerance, cold intolerance NEUROLOGIC: Absent: headache, focal weakness or paresthesias, dizziness, unsteady gait, seizure, mental status changes, bladder or bowel incontinence PSYCHIATRIC: Absent: anxiety, depression, suicidal or homicidal ideation, hallucinations. PHYSICAL EXAMINATION Vital Signs - 24 hr 3 05/17/17 23:53 Temperature 97.5 F L Pulse Rate 58 L Respiratory 20 Rate Blood Pressure 150/94 O2 Sat by Pulse 100 Oximetry (%) GENERAL: Awake, alert, and fully oriented, in no acute distress. HEAD: Normal with no signs of trauma. EYES: Pupils equal, round and reactive to light, extraocular movements intact, sclera anicteric, conjunctiva clear. No lid lag. EARS, NOSE, THROAT: Ears normal, nares patent, oropharynx clear without exudates. Moist mucous membranes. NECK: Normal range of motion, supple without lymphadenopathy, JVD, or masses. LUNGS: Breath sounds equal, clear to auscultation bilaterally. No wheezes, and no crackles. No accessory muscle use. HEART: Regular rate and rhythm, normal S1 and S2 without murmur, rub or gallop. ABDOMEN: Soft, nontender, not distended, normoactive bowel sounds, no guarding, no rebound, no masses. No hepatomegaly or splenomegaly. No CVA tenderness MUSCULOSKELETAL: Normal range of motion at all joints. No bony deformities or tenderness. No CVA tenderness. UPPER EXTREMITIES: 2+ pulses, warm, well-perfused. No cyanosis. No clubbing. No peripheral edema. LOWER EXTREMITIES: 2+ pulses, warm, well-perfused. No calf tenderness. No peripheral edema. NEUROLOGICAL: Cranial nerves II-XII intact. Normal speech. Normal gait. PSYCHIATRIC: Cooperative. Good eye contact. Appropriate mood and affect. SKIN: Warm, dry, normal turgor, no rashes or lesions noted, normal capillary refill. Laboratory Results - last 24 hr 3 05/18/17 05/18/17 05/18/17 01:30 03:02 03:02 WBC 6.4 D RBC 5.27 Hgb 14.3 Hct 43.1 MCV 81.7 MCH 27.2 MCHC 33.3 RDW 13.6 Plt Count 257 MPV 7.7 Neutrophils % 66.4 D Lymphocytes % 25.5 D Monocytes % 6.1 Eosinophils % 1.5 D Basophils % 0.5 INR 1.15 H Sodium Potassium Chloride Carbon Dioxide Anion Gap BUN Creatinine Creat Clearance w eGFR Random Glucose Calcium Total Bilirubin AST ALT Alkaline Phosphatase Total Protein Albumin Urine Color Yellow Urine Appearance Turbid Urine pH 5.0 D Urine Protein 2+ H Urine Glucose (UA) Negative Urine Ketones Negative Urine Blood 3+ H Urine Nitrite Negative Urine Bilirubin Negative Urine Urobilinogen Negative Ur Leukocyte Esterase 1+ H Urine RBC 1223 Urine WBC 31 Ur Epithelial Cells Rare Urine Bacteria Few Urine Mucus Few 3 05/18/17 03:02 WBC RBC Hgb Hct MCV MCH MCHC RDW Plt Count MPV Neutrophils % Lymphocytes % Monocytes % Eosinophils % Basophils % INR Sodium 139 Potassium 4.3 Chloride 103 Carbon Dioxide 27 Anion Gap 9 BUN 12 Creatinine 1.1 Creat Clearance w eGFR > 60 Random Glucose 127 H Calcium 9.3 Total Bilirubin 0.3 D AST 13 L D ALT 38 Alkaline Phosphatase 102 Total Protein 7.2 Albumin 4.0 Urine Color Urine Appearance Urine pH Urine Protein Urine Glucose (UA) Urine Ketones Urine Blood Urine Nitrite Urine Bilirubin Urine Urobilinogen Ur Leukocyte Esterase Urine RBC Urine WBC Ur Epithelial Cells Urine Bacteria Urine Mucus ECG: Sinus bradycardia, rate 55, QTC 382, no acute ST/T wave changes Radiology Results CT abdomen without contrast and CT pelvis without contrast IMAGES: 541 EXAM DATE AND TIME: 2017-05-18 00:52:48 REASON FOR EXAM: 52-year-old male right- sided pain COMPARISON: None. THIS IS A PRELIMINARY REPORT FROM [facility] FINDINGS: Basilar atelectasis. Lack of intravenous contrast limits this exam. Noncontrast evaluation liver gallbladder pancreas spleen adrenal glands and left kidney appear unremarkable. Right kidney renal pelvis 9 x 8 mm stone with mild right hydronephrosis consistent with partial intermittent obstruction of the right ureteropelvic junction. Right kidney 1-6 mm nonobstructing nephrolithiasis. Noncontrast evaluation the stomach small bowel appendix and colon appear unremarkable. Bladder and prostate appear unremarkable. Mild arteriosclerosis of the abdominal and pelvic vasculature. Moderate degenerative disc disease in the lower thoracic and lower lumbar levels. IMPRESSION Right kidney renal pelvis 9 mm stone with mild right hydronephrosis consistent with partial intermittent obstruction of the right ureteropelvic junction. Right kidney nonobstructing nephrolithiasis. THIS DOCUMENT HAS BEEN ELECTRONICALLY SIGNED Jn Alegria MD 05/18/2017 02:45 EST ASSESSMENT/PLAN: 52yM with past medical history of kidney stones presented with right flank pain. He is being admitted for partially obstructing R renal stone. Renal pelvis stone, partially obstructing - morphine 4mg q4h for pain - zofran for nausea - urology consult - levaquin given in ED, will hold on further given afebrile and no elevated WBC DVT PPX - low risk, ambulation encouraged FEN - NS @ 75cc/hr - BMP tomorrow - regular diet Dispo: Pt currently requires inpatient management of his emergent medical condition. Visit type - Emergency Visit Emergency Visit: Yes ED Registration Date: 05/17/17 Care time: The patient presented to the Emergency Department on the above date and was hospitalized for further evaluation of their emergent condition. - New Patient This patient is new to me today: Yes Date on this admission: 05/18/17 - Critical Care Critical Care patient: No
[2017-05-18] MEDS: SODIUM CHLORIDE 1,000 ML IV SCH ×2 (06:23→16:51)
--- NOTE | 2017-05-18 11:55 | HOSP ---
Physical Examination Vital Signs: Vital Signs Temperature 97.5 F L 05/18/17 07:12 Pulse Rate 58 L 05/18/17 07:12 Respiratory Rate 16 05/18/17 07:12 Blood Pressure 143/93 05/18/17 07:12 O2 Sat by Pulse Oximetry (%) 98 05/18/17 07:12 Findings/Remarks: Subjective: The patient was seen and examined at the bedside, he has complaints of pain. No CVA tenderness Called Dr. Rowe's service and left consult Current Medications Generic Name Dose Route Start Last Admin Trade Name Freq PRN Reason Stop Dose Admin Docusate Sodium 300 mg 05/18/17 22:00 Colace - PO HS HUA Sodium Chloride 1,000 mls @ 75 mls/hr 05/18/17 05:45 05/18/17 06:23 Normal Saline - IV 75 mls/hr ASDIR HUA Administration Morphine Sulfate 4 mg 05/18/17 05:41 Morphine Injection - IVPUSH Q4H PRN PAIN Ondansetron HCl 4 mg 05/18/17 05:41 Zofran Injection IVPB Q6H PRN NAUSEA Objective: Vital Signs Period Temp Pulse Resp BP Sys/Anaya Pulse Ox Last 24 Hr 97.5 F-98.2 F 58-60 16-20 115-150/78-94 98-100 Physical Exam: General: NAD, A&Ox3 Lungs: CTA bilaterally Heart: RRR, S1S2 Abd: No CVA tenderness. Normoactive bowel sounds. No tenderness Ext: Warm, well-perfused CBCD WBC 6.4 K/mm3 (4.0-10.0) D 05/18/17 03:02 RBC 5.27 M/mm3 (4.00-5.60) 05/18/17 03:02 Hgb 14.3 GM/dL (11.7-16.9) 05/18/17 03:02 Hct 43.1 % (35.4-49) 05/18/17 03:02 MCV 81.7 fl (80-96) 05/18/17 03:02 MCHC 33.3 g/dl (32.0-35.9) 05/18/17 03:02 RDW 13.6 % (11.9-15.9) 05/18/17 03:02 Plt Count 257 K/MM3 (134-434) 05/18/17 03:02 MPV 7.7 fl (7.5-11.1) 05/18/17 03:02 CMP Sodium 139 mmol/L (136-145) 05/18/17 03:02 Potassium 4.3 mmol/L (3.5-5.1) 05/18/17 03:02 Chloride 103 mmol/L (98-107) 05/18/17 03:02 Carbon Dioxide 27 mmol/L (21-32) 05/18/17 03:02 Anion Gap 9 (8-16) 05/18/17 03:02 BUN 12 mg/dL (7-18) 05/18/17 03:02 Creatinine 1.1 mg/dL (0.7-1.3) 05/18/17 03:02 Creat Clearance w eGFR > 60 (>60) 05/18/17 03:02 Random Glucose 127 mg/dL (74-106) H 05/18/17 03:02 Calcium 9.3 mg/dL (8.5-10.1) 05/18/17 03:02 Total Bilirubin 0.3 mg/dL (0.2-1.0) D 05/18/17 03:02 AST 13 U/L (15-37) L D 05/18/17 03:02 ALT 38 U/L (12-78) 05/18/17 03:02 Alkaline Phosphatase 102 U/L (45-117) 05/18/17 03:02 Total Protein 7.2 g/dl (6.4-8.2) 05/18/17 03:02 Albumin 4.0 g/dl (3.4-5.0) 05/18/17 03:02 Assessment: This is a 52 year old male with PMHx of of kidney stones (s/p lithotripsy 15-20 times) who presented to the ED with right flank pain. Plan: 1) : Right 9mm kidney stone with mild hydronephrosis - Continue IV fluids - Continue pain management - Awaiting urine culture to start antibiotics, no wbc, remains afebrile - Awaiting urology consult 2) F/E/N: - Regular diet - Monitor electrolytes 3) Prophylaxis: - OOB ambulating - SCDs bilaterally - Hold all chemical dvt prophylaxis until evaluation by urology 4) Dispo: - Requires continued inpatient care CODE STATUS: FULL CODE
--- NOTE | 2017-05-18 16:40 | EKG ---
Test Reason : Blood Pressure : / mmHG Vent. Rate : 055 BPM Atrial Rate : 055 BPM P-R Int : 174 ms QRS Dur : 092 ms QT Int : 400 ms P-R-T Axes : 014 -13 027 degrees QTc Int : 382 ms SINUS BRADYCARDIA OTHERWISE NORMAL ECG NO PREVIOUS ECGS AVAILABLE Confirmed by EMILIANO OLIVAS MD ([id number]) on 05/18/2017 4:39:44 PM Referred By: Confirmed By:EMILIANO OLIVAS MD
[2017-05-18] MEDS: morphine CARPU-JECT 4 MG/1 ML DISP.SYRIN IVPUSH PRN ×2 (16:52→20:20)
[2017-05-18] MEDS: DOCUSATE SODIUM 100 MG CAPSULE (FP) PO SCH (21:39)
[2017-05-19] MEDS: morphine CARPU-JECT 4 MG/1 ML DISP.SYRIN IVPUSH PRN ×4 (03:35→18:03)
[2017-05-19] MEDS: SODIUM CHLORIDE 1,000 ML IV SCH ×2 (06:32→21:32)
[2017-05-19 08:04] LABS: ANION GAP 6 (8-16); BASOPHIL 0.7 % (0-2.0); CALCIUM 8.7 mg/dL (8.5-10.1); CO2 28 mmol/L (21-32); CREATININE 0.9 mg/dL (0.7-1.3); EOSINOPHIL 4.4 % (0-4.5); GLUCOSE,RANDOM 106 mg/dL (74-106); MCH 27.5 pg (25.7-33.7); MCHC 33.7 g/dl (32.0-35.9); MEAN CELL VOLUME 81.5 fl (80-96); MEAN PLT VOLUME 7.8 fl (7.5-11.1); NEUTROPHILS 40.5 % (42.8-82.8); PHOSPHOROUS 2.9 mg/dL (2.5-4.9); PLATELET COUNT 256 K/MM3 (134-434); RDW 13.5 % (11.9-15.9); WHITE BLOOD COUNT 4.2 K/mm3 (4.0-10.0)
--- NOTE | 2017-05-19 08:57 | CON.GU ---
Consult Consult Specialty:: Urology Reason for Consultation:: Right renal calculus - History of Present Illness Chief Complaint: Right flank pain - History Source History Provided By: Patient Limitations to Obtaining History: No Limitations - Past Medical History Renal/: Yes: BPH, Renal Calculi (Previous stones treated with ESWL) - Alcohol/Substance Use Hx Alcohol Use: No - Smoking History Smoking history: Never smoked Have you smoked in the past 12 months: No Aproximately how many cigarettes per day: 0 If you are a former smoker, when did you quit?: 4 years ago Home Medications - Allergies Allergies/Adverse Reactions: Allergies Allergy/AdvReac Type Severity Reaction Status Date / Time Cat/Feline Product Allergy Verified 05/17/17 23:53 Derivatives No Known Drug Allergies Allergy Verified 05/17/17 23:53 - Home Medications Home Medications: Ambulatory Orders NK [No Known Home Medication] 05/18/17 Family Disease History - Family Disease History Family History: Unremarkable Review of Systems - Review of Systems Constitutional: reports: No Symptoms Eyes: reports: No Symptoms HENT: reports: No Symptoms Neck: reports: No Symptoms Respiratory: reports: No Symptoms Gastrointestinal: reports: No Symptoms, Abdominal Pain Genitourinary: reports: No Symptoms Musculoskeletal: reports: No Symptoms, Back Pain Integumentary: reports: No Symptoms Neurological: reports: No Symptoms Endocrine: reports: No Symptoms Hematology/Lymphatic: reports: No Symptoms Psychiatric: reports: No Symptoms Physical Exam- Vital Signs: Vital Signs Temperature 98.3 F 05/19/17 05:55 Pulse Rate 53 L 05/19/17 05:55 Respiratory Rate 20 05/19/17 05:55 Blood Pressure 140/59 05/19/17 05:55 O2 Sat by Pulse Oximetry (%) 100 05/19/17 01:00 Constitutional: Yes: Well Nourished Eyes: Yes: WNL HENT: Yes: WNL Neck: Yes: WNL Cardiovascular: Yes: WNL Respiratory: Yes: WNL Gastrointestinal: Yes: WNL Renal/: Yes: WNL Kidneys: Yes: Tenderness Pelvis: Yes: WNL Testicles: Yes: WNL Penis: Yes: WNL Prostate Exam: Yes: WNL Musculoskeletal: Yes: WNL, Back Pain (with fist percuasssion) Extremities: Yes: WNL Integumentary: Yes: WNL Neurological: Yes: WNL ...Motor Strength: WNL Psychiatric: Yes: WNL Labs: CBC, BMP 05/19/17 06:00 05/19/17 06:00 Imaging - Results Cat Scan: Report Reviewed, Image Reviewed Problem List - Problems (1) Renal colic on right side Code(s): N23 - UNSPECIFIED RENAL COLIC Assessment/Plan Pt with 9mm right renal pelvic calculus. KUB requested and will evaluate as candidate for ESWL tretment. Continue with IV fluids and pain meds.
--- NOTE | 2017-05-19 11:03 | PN ---
Progress Note (short form) - Note Progress Note: Subjective: The patient was seen and examined at the bedside, he has complaints of feeling restless F/u KUB For possible lithotripsy Current Medications Generic Name Dose Route Start Last Admin Trade Name Fremeredith PRN Reason Stop Dose Admin Docusate Sodium 300 mg 05/18/17 22:00 05/18/17 21:39 Colace - PO 300 mg HS HUA Administration Sodium Chloride 1,000 mls @ 75 mls/hr 05/18/17 05:45 05/19/17 06:32 Normal Saline - IV 75 mls/hr ASDIR HUA Administration Morphine Sulfate 4 mg 05/18/17 16:40 05/19/17 08:33 Morphine Injection - IVPUSH 4 mg Q4H PRN Administration PAIN Ondansetron HCl 4 mg 05/18/17 05:41 Zofran Injection IVPB Q6H PRN NAUSEA Objective: Vital Signs Period Temp Pulse Resp BP Sys/Anaya Pulse Ox Last 24 Hr 97.9 F-98.4 F 50-59 16-20 109-142/59-87 100-100 Physical Exam: General: NAD, A&Ox3 Lungs: CTA bilaterally Heart: RRR, S1S2 Abd: No CVA tenderness. Normoactive bowel sounds. No tenderness Ext: Warm, well-perfused CBCD WBC 4.2 K/mm3 (4.0-10.0) D 05/19/17 06:00 RBC 5.05 M/mm3 (4.00-5.60) 05/19/17 06:00 Hgb 13.9 GM/dL (11.7-16.9) 05/19/17 06:00 Hct 41.2 % (35.4-49) 05/19/17 06:00 MCV 81.5 fl (80-96) 05/19/17 06:00 MCHC 33.7 g/dl (32.0-35.9) 05/19/17 06:00 RDW 13.5 % (11.9-15.9) 05/19/17 06:00 Plt Count 256 K/MM3 (134-434) 05/19/17 06:00 MPV 7.8 fl (7.5-11.1) 05/19/17 06:00 CMP Sodium 138 mmol/L (136-145) 05/19/17 06:00 Potassium 4.3 mmol/L (3.5-5.1) 05/19/17 06:00 Chloride 104 mmol/L (98-107) 05/19/17 06:00 Carbon Dioxide 28 mmol/L (21-32) 05/19/17 06:00 Anion Gap 6 (8-16) L 05/19/17 06:00 BUN 9 mg/dL (7-18) D 05/19/17 06:00 Creatinine 0.9 mg/dL (0.7-1.3) 05/19/17 06:00 Creat Clearance w eGFR > 60 (>60) 05/18/17 03:02 Random Glucose 106 mg/dL (74-106) 05/19/17 06:00 Calcium 8.7 mg/dL (8.5-10.1) 05/19/17 06:00 Total Bilirubin 0.3 mg/dL (0.2-1.0) D 05/18/17 03:02 AST 13 U/L (15-37) L D 05/18/17 03:02 ALT 38 U/L (12-78) 05/18/17 03:02 Alkaline Phosphatase 102 U/L (45-117) 05/18/17 03:02 Total Protein 7.2 g/dl (6.4-8.2) 05/18/17 03:02 Albumin 4.0 g/dl (3.4-5.0) 05/18/17 03:02 Microbiology 05/18/17 01:30 Urine - Urine Clean Catch Urine Culture - Final NO GROWTH OBTAINED 05/18/17 03:28 Blood - Peripheral Venous Blood Culture - Preliminary NO GROWTH OBTAINED AFTER 24 HOURS, INCUBATION TO CONTINUE FOR 4 DAYS. 05/18/17 03:28 Blood - Peripheral Venous Blood Culture - Preliminary NO GROWTH OBTAINED AFTER 24 HOURS, INCUBATION TO CONTINUE FOR 4 DAYS. Assessment: This is a 52 year old male with PMHx of of kidney stones (s/p lithotripsy 15-20 times) who presented to the ED with right flank pain. Plan: 1) : Right 9mm kidney stone with mild hydronephrosis - Continue IV fluids - Continue pain management - Urine culture with no growth - The patient does not have signs of ACS, EKG with sinus bradycardia. The patient does not have a history of CHF and does not display signs of heart failure at this time. There are no complete contraindications for proceeding with lithotripsy at this time. The patient is low risk for a low risk procedure. - Appreciate urology consult 2) F/E/N: - Regular diet - Monitor electrolytes 3) Prophylaxis: - OOB ambulating - SCDs bilaterally - Hold all chemical dvt prophylaxis until evaluation by urology 4) Dispo: - Requires continued inpatient care CODE STATUS: FULL CODE Visit type - Emergency Visit Emergency Visit: Yes ED Registration Date: 05/18/17 Care time: The patient presented to the Emergency Department on the above date and was hospitalized for further evaluation of their emergent condition. - New Patient This patient is new to me today: No - Critical Care Critical Care patient: No
[2017-05-19 13:03] LABS: INR 1.25 (0.82-1.09); PROTHROMBIN TIME (PATIENT) 13.8 SEC (9.98-11.88)
[2017-05-19] MEDS ORDERED: PHYTONADIONE 10 MG/1 ML AMP IM ONE ×2 (15:48→20:00)
[2017-05-19] MEDS: DOCUSATE SODIUM 100 MG CAPSULE (FP) PO SCH (21:34)
[2017-05-20] MEDS: morphine CARPU-JECT 4 MG/1 ML DISP.SYRIN IVPUSH PRN (06:04)
[2017-05-20 06:27] LABS: INR 1.14 (0.82-1.09); PROTHROMBIN TIME (PATIENT) 12.6 SEC (9.98-11.88)
--- NOTE | 2017-05-20 07:33 | DS ---
Physical Examination Vital Signs: Vital Signs Temperature 99.1 F 05/19/17 19:37 Pulse Rate 56 L 05/19/17 19:37 Respiratory Rate 20 05/19/17 21:00 Blood Pressure 138/62 05/19/17 19:37 O2 Sat by Pulse Oximetry (%) 100 05/19/17 21:00 Labs: CBC, BMP 05/19/17 06:00 05/19/17 06:00 Discharge Summary Reason For Visit: RENAL COLIC Current Active Problems Renal colic (Acute) Renal colic on right side (Acute) Hospital Course: The patient had an INR of 1.25, Dr. Rowe ordered 20mg of vitamin K. INR today wnl. Patient discharged and instructed to go directly to lithotripsy center per Dr. Rowe Condition: Stable - Instructions Diet, Activity, Other Instructions: Please return to the ED with new, persistent, or worsening symptoms. Please follow-up with providers as indicated. You are being discharged and MUST report directly to: [facility] [address] [place] [address] You must be there by 9AM Referrals: Lukasz Loredo MD [Staff Physician] - Live Rowe MD [Staff Physician] - Disposition: HOME - Home Medications Comprehensive Discharge Medication List: Ambulatory Orders Docusate Sodium [Colace -] 300 mg PO HS cap 05/20/17
[2017-05-20 08:13] VITALS: BP 144/96; PULSE 60; TEMP 98.3
== END 2017-05-20 08:00 | disposition home or self-care (01) | DRG 694 ==
LOC: JER 23:46 → JERBED 05-18 04:28 → J6S 05-18 15:47
PROVIDERS: ADMIT Internal Medicine; ATTEND Registered Nurse
DX: N13.2 Hydronephrosis with renal and ureteral calculous obstruction (principal); Z87.891 Personal history of nicotine dependence
CPT/HCPCS: 36415; 71020-TC; 74000-TC; 74176; 80048; 80053; 81003; 81015; 83735; 84100; 85025; 85610; 87040; 87086; 93005; 93010; 99285-25

== ENCOUNTER 2017-05-21 06:31 | Emergency (ER) | payer OTHER ==
[2017-05-21] MEDS ORDERED: KETOROLAC TROMETHAMINE 30 MG/1 ML VIAL ONE (06:45)
[2017-05-21] MEDS ORDERED: KETOROLAC TROMETHAMINE 30 MG/1 ML VIAL IVPUSH ONE (06:45)
[2017-05-21] MEDS ORDERED: SODIUM CHLORIDE 1,000 ML IV STA (06:45)
[2017-05-21] MEDS ORDERED: ONDANSETRON 4 MG/2 ML VIAL IVPUSH ONE ×2 (06:46→07:24)
[2017-05-21] MEDS ORDERED: ONDANSETRON 4 MG/2 ML VIAL ONE ×2 (06:47→07:24)
--- NOTE | 2017-05-21 07:00 | PDOC ---
History of Present Illness - General Chief Complaint: Pain, Acute Stated Complaint: PAIN/RT SIDE Time Seen by Provider: 05/21/17 07:00 History Source: Patient Exam Limitations: No Limitations - History of Present Illness Initial Comments: 05/21/17 07:00 Patient is a 52 yo male with history of multiple incidents of nephrolithiasis s/ p lithotripsy yesterday who is presenting with severe right flank pain, nausea and vomiting for the last 3 hours. Patient states the pain woke him from sleep and progressively got worse, has never been this bad in the past, and was not relieved with the prescriptions he received for FlowMax and Percocet. The pain does not radiate but is a constant sharp right flank pain that is unchanged by position. Denies any problems urinating and was able to urinate several times yesterday. The first time following the procedure was blood tinged but since has been non-bloody. Endorses chills but denies fever, abdominal and groin pain. Urologist: Live Rowe ([phone]) Past History - Past Medical History Allergies/Adverse Reactions: Allergies Allergy/AdvReac Type Severity Reaction Status Date / Time Cat/Feline Product Allergy Verified 05/21/17 06:48 Derivatives No Known Drug Allergies Allergy Verified 05/21/17 06:48 Home Medications: Ambulatory Orders Oxycodone HCl/Acetaminophen [Percocet 5-325 mg Tablet] 1 - 2 tab PO Q4H Disorders: Yes (H/O KIDNEY STONES) Kidney Stones: Yes (MULTIPLE LITHOTRIPSY) - Immunization History Td Vaccination: Yes TDAP Vaccination: No Immunization Up to Date: No - Psycho/Social/Smoking Cessation Hx Anxiety: No Suicidal Ideation: No Smoking Status: Yes Smoking History: Never smoked Years of Tobacco Use: 20 Have you smoked in the past 12 months: No Number of Cigarettes Smoked Daily: 0 If you are a former smoker, when did you quit?: 4 years ago Cigars Per Day: 0 Information on smoking cessation initiated: No Hx Alcohol Use: No Drug/Substance Use Hx: No Substance Use Type: None Review of Systems - Review of Systems Able to Perform ROS?: Yes Is the patient limited Turkmen proficient: No Constitutional: Yes: Chills. No: Fever ABD/GI: Yes: Nausea, Vomiting. No: Constipated, Diarrhea : Yes: Flank Pain (Severe, Right sided). No: Burning, Dysuria, Hematuria *Physical Exam - Vital Signs Last Vital Signs Temp Pulse Resp BP Pulse Ox 98.8 F 62 24 137/86 97 05/21/17 06:41 05/21/17 06:41 05/21/17 06:41 05/21/17 06:41 05/21/17 06:41 - Physical Exam General Appearance: Yes: Nourished, Moderate Distress (Writhing in pain, unable to sit still), Obese HEENT: positive: EOMI, CARY, Normal Voice Respiratory/Chest: positive: Lungs Clear, Normal Breath Sounds. negative: Chest Tender, Respiratory Distress Cardiovascular: positive: Regular Rhythm, Regular Rate. negative: JVD, Murmur Gastrointestinal/Abdominal: positive: Normal Bowel Sounds, Tender (Feels flank pain with pressure on his abdomen ), Soft, Distended, Other (activly vomiting). negative: Rebound Musculoskeletal: negative: CVA Tenderness (R), CVA Tenderness (L) Integumentary: positive: Normal Color, Dry, Warm Neurologic: positive: pr manager II-XII NML intact, Fully Oriented, Alert, Normal Mood/ Affect, Motor Strength 5/5 ED Treatment Course - LABORATORY CBC & Chemistry Diagram: 05/21/17 09:38 05/21/17 07:12 - RADIOLOGY Radiograph Interpretation: 05/21/17 10:21 [id number] CT/SPIRAL- RENAL-STONE CT HISTORY PROVIDED: Right flank pain TECHNIQUE: Sequential axial images were obtained from the upper abdomen through the symphysis pubis utilizing urinary tract calculi protocol. There is a 6 mm calculus within the right upper collecting system at the level of the UPJ consistent with a proximal obstructing calculus. There is a mild degree of hydronephrosis related to this stone. There are multiple additional calculi within the lower pole of the right kidney. The largest of these measures approximately 11 mm. There is no evidence of calcifications within the left kidney, ureter or urinary bladder suspicious for additional urinary tract calculi. There is no evidence of left- sided hydronephrosis or obstructive uropathy. No significant abnormalities of the liver, spleen, pancreas, or adrenal glands are identified. The gallbladder is clear. There is no evidence of intra-abdominal, retroperitoneal or pelvic mass lesions, fluid collections or lymphadenopathy. There is no evidence of pneumoperitoneum, bowel obstruction or intra-abdominal abscess. There is no CT evidence of acute appendicitis or diverticulitis. IMPRESSION: 6 mm right UPJ calculus with mild hydronephrosis with additional calculi within the lower pole of the right kidney. Clinical correlation and follow-up recommended. Please see above discussion. Medical Decision Making - Medical Decision Making 05/21/17 07:00 52 year old male 1 day s/p lithotripsy for right sided nephrolithiasis with severe right sided flank pain and vomiting. Afebrile and able to urinate without gross blood. Ddx includes but not limited to incomplete stone fragmentation/residual stone, complication of lithotripsy procedure, ureter obstruction, post procedure renal/ ureteral colic, infection. Plan: IV, Fluids Pain and nausea control CBC, CMP, UA with cultures Consult patient's urologist Consider right renal CT versus US Toradol 30 mg + Zofran 4 mg 05/21/17 07:18 Pain not touched by Toradol, added Morphine 4mg Additional Zofran 4mg Put in call to urologist 05/21/17 07:57 Pain and nausea much improved 05/21/17 08:05 CBC WBC 4.3 K/mm3 (4.0-10.0) 05/21/17 07:12 RBC 4.87 M/mm3 (4.00-5.60) 05/21/17 07:12 Hgb 13.5 GM/dL (11.7-16.9) 05/21/17 07:12 Hct 39.7 % (35.4-49) 05/21/17 07:12 MCV 81.6 fl (80-96) 05/21/17 07:12 MCH 27.7 pg (25.7-33.7) 05/21/17 07:12 MCHC 34.0 g/dl (32.0-35.9) 05/21/17 07:12 RDW 13.3 % (11.9-15.9) 05/21/17 07:12 Plt Count No Result Required. 05/21/17 07:12 MPV 8.5 fl (7.5-11.1) 05/21/17 07:12 Neutrophils % 53.8 % (42.8-82.8) D 05/21/17 07:12 Lymphocytes % 32.0 % (8-40) D 05/21/17 07:12 Monocytes % 9.8 % (3.8-10.2) 05/21/17 07:12 Eosinophils % 3.8 % (0-4.5) 05/21/17 07:12 Basophils % 0.6 % (0-2.0) 05/21/17 07:12 No leukocytosis, reassuring results Repeat CBC: Plt count wnl CMP Sodium 137 mmol/L (136-145) 05/21/17 07:12 Potassium 4.4 mmol/L (3.5-5.1) 05/21/17 07:12 Chloride 102 mmol/L (98-107) 05/21/17 07:12 Carbon Dioxide 26 mmol/L (21-32) 05/21/17 07:12 Anion Gap 9 (8-16) 05/21/17 07:12 BUN 10 mg/dL (7-18) 05/21/17 07:12 Creatinine 1.2 mg/dL (0.7-1.3) D 05/21/17 07:12 Creat Clearance w eGFR > 60 (>60) 05/21/17 07:12 Random Glucose 134 mg/dL (74-106) H D 05/21/17 07:12 Calcium 9.0 mg/dL (8.5-10.1) 05/21/17 07:12 Total Bilirubin 0.6 mg/dL (0.2-1.0) D 05/21/17 07:12 AST 39 U/L (15-37) H D 05/21/17 07:12 ALT 52 U/L (12-78) D 05/21/17 07:12 Alkaline Phosphatase 109 U/L (45-117) 05/21/17 07:12 Total Protein 7.9 g/dl (6.4-8.2) 05/21/17 07:12 Albumin 4.4 g/dl (3.4-5.0) 05/21/17 07:12 Mild elevation in AST and glucose are non concerning Remaining results within normal limits 05/21/17 09:05 Pain and nausea controlled. Patient resting comfortably Put in a second call to Dr. Rowe 05/21/17 09:[address] Rowe. He confirmed fragmentation of the stone yesterday and believes the pain is likely due to a large fragment He supports a Spiral CT and will come by the hospital in about an hour to review the results and meet with the patient. Consider admission versus discharge based on size of fragments. 05/21/17 09:[address] 05/21/17 10:19 Urine Test Results Urine Color Ltyellow 05/21/17 08:50 Urine Appearance Slcloudy 05/21/17 08:50 Urine pH 8.0 (5.0-8.0) D 05/21/17 08:50 Urine Protein Negative (NEGATIVE) 05/21/17 08:50 Urine Glucose (UA) Negative (NEGATIVE) 05/21/17 08:50 Urine Ketones Trace (NEGATIVE) H 05/21/17 08:50 Urine Blood 3+ (NEGATIVE) H 05/21/17 08:50 Urine Nitrite Negative (NEGATIVE) 05/21/17 08:50 Urine Bilirubin Negative (NEGATIVE) 05/21/17 08:50 Ur Leukocyte Esterase Trace (NEGATIVE) 05/21/17 08:50 Urine RBC 63 /hpf (0-3) 05/21/17 08:50 Urine WBC 12 /hpf (3-5) 05/21/17 08:50 Ur Epithelial Cells Rare /hpf (FEW) 05/21/17 08:50 Urine Mucus Rare 05/21/17 08:50 Significant for hematuria+WBC without LE/Nitrites more consistent with a stone than infection 05/21/17 10:21 CT results significant for a 6 mm right UPJ calculus with mild hydronephrosis and additional calculi within the lower pole of the right kidney 05/21/17 10:24 Patient given his morning Tamsulosin in ED along with additional fluids 05/21/17 11:00 Pain starting to return, give trial of Percocet to see if it is able to control the pain sufficiently for discharge Called Dr. Rowe with update. He recommended giving the Percocet 30 minutes and he will drop by in that time to evaluate the patient. 05/21/17 12:03 After evaluating the patient, Dr. Rowe and I reviewed the CT and discussed the options. Currently the patient's pain is well controlled with Percocet and both Dr. Montanez and patient are comfortable with patient going home and allowing the stone to pass with current medications with strict return instructions if he is unable to control his pain and followup with Dr. Rowe. If patient fails to manage pain and returns to the ED he will be admitted. Patient discharged to home *DC/Admit/Observation/Transfer Diagnosis at time of Disposition: Renal colic on right side - Discharge Dispostion Condition at time of disposition: Fair Admit: No - Referrals Referrals: Live Rowe MD [Staff Physician] - - Patient Instructions Printed Discharge Instructions: DI for Extracorporeal Shock Wave Lithotripsy, Kidney Stones -- Adult Additional Instructions: Thank you for trusting us with your health care today. I hope you were happy with the care we provided. As we discussed, the CT showed that you still have a kidney stone in your right ureter and some additional stones in your right kidney. The stone in your ureter is at a size where it will normally pass without any intervention. Unfortunately, this is often painful. The medications you were provided by Dr. Rowe should assist with passing the stone and managing your pain. Be sure to take these medications as instructed. You should not drink alcohol while you are taking the pain medicine and should avoid driving or operating heavy equipment as the medication is likely to make you drowsy. Be sure to drink plenty of fluids. This will also assist with passage of the stone. If you are unable to manage your pain with the medications prescribed, please return to the emergency department and we will have you admitted to the hospital per Dr. Rowe's advise. If you should start experiencing any new or concerning symptoms, you should also return to the emergency department. you should take percocet one tablet every 6 hours as needed for pain. can cause constipation, you can take over the counter stool softner while using this medication. you should take flomax 0.4 mg or one tablet once daily at night for total of ten days. follow up with Dr Rowe, call to schedule. return for ED for pain that does not respond to medication, fever, inability to urinate, confusion, or any concerns. - Attestations Physician Attestion: 05/21/17 12:20 I, Dr. Kory Villavicencio, attest that this document has been prepared under my direction and personally reviewed by me in its entirety. I further attest, that it accurately reflects all work, treatment, procedures and medical decision -making performed by me.
[2017-05-21] MEDS ORDERED: morphine CARPU-JECT 4 MG/1 ML DISP.SYRIN IVPUSH ONE (07:17)
[2017-05-21] MEDS ORDERED: morphine CARPU-JECT 2 MG/1 ML DISP.SYRIN ONE (07:17)
[2017-05-21 07:21] LABS: BASOPHIL 0.6 % (0-2.0); EOSINOPHIL 3.8 % (0-4.5); MCH 27.7 pg (25.7-33.7); MEAN CELL VOLUME 81.6 fl (80-96); MEAN PLT VOLUME 8.5 fl (7.5-11.1); NEUTROPHILS 53.8 % (42.8-82.8); RDW 13.3 % (11.9-15.9); WHITE BLOOD COUNT 4.3 K/mm3 (4.0-10.0)
[2017-05-21 07:28] VITALS: BMI 33.0
--- NOTE | 2017-05-21 07:42 | PDOC ---
Attending Attestation - Resident Resident Name: Kory Villavicencio - ED Attending Attestation I have performed the following: I have examined & evaluated the patient, The case was reviewed & discussed with the resident, I agree w/resident's findings & plan, Exceptions are as noted - HPI HPI: 05/21/17 07:39 52 yo male with h/o renal colic, s/p lithotripsy yesterday, here today with severe right sided flankpain. began this am. no assoc f/c does have nausea and vomiting. no hematuria . no dysuria. no mod factors. pain severe, worse than prior kidney stones. urologist dr. Rowe. - Physicial Exam PE: 05/21/17 07:40 on exam pt writhing in pain, awake alert lungs clear heart rrr no mrg. abd soft right sided cva ttp. right sided mid abd ttp. no rebound no guarding. ext wwp. no edema no calf tenderness. nuero alert oriented. skin warm and dry. - Medical Decision Making 05/21/17 07:41 s/p lithotripsy with severe pain, differential passing fragments. obstruction infection. complication from procedure. plan ct spiral, pain control ua labs fluid. reassess. will contact dr. rowe. <Gunnar Singletary - Last Filed: 05/21/17 07:39> - Medical Decision Making 05/21/17 11:19 pt pain improved with medicaiton. CT with 6 mm stone right UPJ, Dr Rowe contacted, will see pt in the ED. creatinine normal. <Angie Dumas - Last Filed: 05/21/17 11:19>
[2017-05-21 07:46] LABS: ALBUMIN 4.4 g/dl (3.4-5.0); ALK PHOS 109 U/L (45-117); ANION GAP 9 (8-16); BILIRUBIN,TOTAL 0.6 mg/dL (0.2-1.0); CO2 26 mmol/L (21-32); CREATININE 1.2 mg/dL (0.7-1.3); GLUCOSE,RANDOM 134 mg/dL (74-106); SGPT/ALT 52 U/L (12-78); TOT PROT 7.9 g/dl (6.4-8.2)
[2017-05-21 07:49] LABS: SGOT/AST 39 U/L (15-37)
[2017-05-21 09:06] LABS: URINE APPEARANCE SLCLOUDY; URINE BILIRUBIN NEGATIVE (NEGATIVE); URINE BLOOD 3+ (NEGATIVE); URINE COLOR LTYELLOW; URINE GLUCOSE (UA) NEGATIVE (NEGATIVE); URINE KETONE TRACE (NEGATIVE); URINE LEUK ESTERASE TRACE (NEGATIVE); URINE NITRITE NEGATIVE (NEGATIVE); URINE PROTEIN NEGATIVE (NEGATIVE); URINE UROBILINOGEN NEGATIVE mg/dL (0.2-1.0)
[2017-05-21 09:09] LABS: URINE MUCUS RARE; URINE RBC 63 /hpf (0-3); URINE WBC 12 /hpf (3-5)
[2017-05-21 10:25] LABS: MCH 27.1 pg (25.7-33.7); MCHC 33.1 g/dl (32.0-35.9); MEAN CELL VOLUME 82.1 fl (80-96); MEAN PLT VOLUME 7.8 fl (7.5-11.1); PLATELET COUNT 273 K/MM3 (134-434); RDW 13.7 % (11.9-15.9); WHITE BLOOD COUNT 7.1 K/mm3 (4.0-10.0)
[2017-05-21] MEDS ORDERED: TAMSULOSIN HCL 0.4 MG CAP.ER.24H (FP) PO ONE (10:25)
[2017-05-21] MEDS ORDERED: TAMSULOSIN HCL 0.4 MG CAP.ER.24H (FP) ONE (10:47)
[2017-05-21 10:53] VITALS: BP 120/74; PULSE 65; TEMP 98
== END 2017-05-21 12:47 | disposition home or self-care (01) ==
LOC: SUPCPDRO 06:31 → JER 06:31
PROC: 3E033NZ Introduction of Analgesics, Hypnotics, Sedatives into Peripheral Vein, Percutaneous Approach (ICD-10-PCS; principal; 2017-05-21)
PROC: 3E033GC Introduction of Other Therapeutic Substance into Peripheral Vein, Percutaneous Approach (ICD-10-PCS; 2017-05-21)
PROC: 3E0333Z Introduction of Anti-inflammatory into Peripheral Vein, Percutaneous Approach (ICD-10-PCS; 2017-05-21)
DX: N13.2 Hydronephrosis with renal and ureteral calculous obstruction (principal)
CPT/HCPCS: 36415; 74176; 80053; 81003; 81015; 85025; 85027; 87086; 99283-25

== ENCOUNTER 2017-05-22 01:25 | Inpatient (IN) | payer OTHER ==
[2017-05-22] MEDS ORDERED: SODIUM CHLORIDE 1,000 ML IV STA (03:35)
[2017-05-22] MEDS ORDERED: KETOROLAC TROMETHAMINE 30 MG/1 ML VIAL IVPUSH ONE (03:35)
--- NOTE | 2017-05-22 03:37 | PDOC ---
History of Present Illness - History of Present Illness Initial Comments: 05/22/17 03:36 Patient is a 52M with history of nephrolithiasis s/p lithotripsy on 05/20 here today complaining of right flank pain radiating to his groin. He was evaluated in the ED less than 24 hours ago and saw his urologist, Dr Rowe. Blood work showed no white count, CMP showed no electrolyte abnormality, and CT showed a "6mm right UPJ calculus with mild hydronephrosis with additional calculi within the lower pole of the right kidney." Pain was eventually controlled with oral percocet. Discharged home with instructions to return if pain wasn't controlled with PO meds. 05/22/17 06:04 PCP: Dr Elise - [facility] Urologist: Dr Rowe <Jose Maria Villalpando - Last Filed: 05/22/17 07:11> <Angie Dumas - Last Filed: 05/22/17 07:30> - General Chief Complaint: Pain, Acute Stated Complaint: KIDNEY STONES/PAIN Time Seen by Provider: 05/22/17 03:22 Past History - Past Medical History Disorders: Yes (H/O KIDNEY STONES) Kidney Stones: Yes (MULTIPLE LITHOTRIPSY) - Immunization History Td Vaccination: Yes TDAP Vaccination: No Immunization Up to Date: No - Psycho/Social/Smoking Cessation Hx Anxiety: No Suicidal Ideation: No Smoking Status: Yes Smoking History: Never smoked Years of Tobacco Use: 20 Have you smoked in the past 12 months: No Number of Cigarettes Smoked Daily: 0 If you are a former smoker, when did you quit?: 4 years ago Cigars Per Day: 0 Information on smoking cessation initiated: No Hx Alcohol Use: No Drug/Substance Use Hx: No Substance Use Type: None <Jose Maria Villalpando - Last Filed: 05/22/17 07:11> <Angie Dumas - Last Filed: 05/22/17 07:30> - Past Medical History Allergies/Adverse Reactions: Allergies Allergy/AdvReac Type Severity Reaction Status Date / Time Cat/Feline Product Allergy Verified 05/21/17 06:48 Derivatives No Known Drug Allergies Allergy Verified 05/21/17 06:48 Home Medications: Ambulatory Orders Oxycodone HCl/Acetaminophen [Percocet 5-325 mg Tablet] 1 - 2 tab PO Q4H *Physical Exam - Vital Signs Last Vital Signs Temp Pulse Resp BP Pulse Ox 97.9 F 78 18 150/119 100 05/22/17 01:55 05/22/17 01:55 05/22/17 01:55 05/22/17 01:55 05/22/17 01:55 <Jose Maria Villalpando - Last Filed: 05/22/17 07:11> - Vital Signs Last Vital Signs Temp Pulse Resp BP Pulse Ox 97.4 F L 58 L 18 128/87 97 05/22/17 07:20 05/22/17 07:20 05/22/17 07:20 05/22/17 07:20 05/22/17 07:20 <Angie Dumas - Last Filed: 05/22/17 07:30> ED Treatment Course - LABORATORY CBC & Chemistry Diagram: 05/22/17 03:53 05/22/17 03:53 <Jose Maria Villalpando - Last Filed: 05/22/17 07:11> - LABORATORY CBC & Chemistry Diagram: 05/22/17 03:53 05/22/17 03:53 - ADDITIONAL ORDERS Additional order review: Laboratory Results 05/22/17 03:53 Sodium 137 Potassium 4.4 Chloride 105 Carbon Dioxide 27 Anion Gap 5 L BUN 9 Creatinine 1.2 Random Glucose 107 H D Calcium 8.8 05/22/17 03:53 RBC 4.98 MCV 81.9 MCHC 33.4 RDW 14.0 MPV 7.5 - Medications Given in the ED: ED Medications Discontinued Medications Generic Name Dose Route Start Last Admin Trade Name Teddyq PRN Reason Stop Dose Admin Hydromorphone HCl 1 mg 05/22/17 04:33 05/22/17 04:35 Dilaudid Injection - IVPUSH 05/22/17 04:34 1 mg ONCE ONE Administration Hydromorphone HCl 1 mg 05/22/17 06:56 05/22/17 07:02 Dilaudid Injection - IVPUSH 05/22/17 06:57 1 mg ONCE ONE Administration Sodium Chloride 1,000 mls @ 1,000 mls/hr 05/22/17 03:35 05/22/17 04:00 Normal Saline - IV 05/22/17 04:34 1,000 mls/hr ASDIR STA Administration Ketorolac Tromethamine 30 mg 05/22/17 03:35 05/22/17 04:00 Toradol Injection - IVPUSH 05/22/17 03:36 30 mg ONCE ONE Administration <Angie Dumas - Last Filed: 05/22/17 07:30> Medical Decision Making - Medical Decision Making 05/22/17 03:57 52M with history of nephrolithiasis s/p lithotripsy on 05/20, here today after complete workup in ED less than 24 hours ago for uncontrolled pain. Patient still making urine. Will attempt to control pain again. Will consult Dr. Rowe. 05/22/17 07:[address] Fink <Jose Maria Villalpando - Last Filed: 05/22/17 07:11> *DC/Admit/Observation/Transfer - Attestations Physician Attestion: 05/22/17 07:11 I, Dr. Jose Maria Villalpando, attest that this document has been prepared under my direction and personally reviewed by me in its entirety. I further attest, that it accurately reflects all work, treatment, procedures and medical decision -making performed by me. <Jose Maria Villalpando - Last Filed: 05/22/17 07:11> - Discharge Dispostion Admit: Yes <Angie Dumas - Last Filed: 05/22/17 07:30> Diagnosis at time of Disposition: Renal colic - Referrals Referrals: Demetrius Elise [Primary Care Provider] -
[2017-05-22] MEDS ORDERED: KETOROLAC TROMETHAMINE 30 MG/1 ML VIAL ONE (03:53)
[2017-05-22 04:14] LABS: MCH 27.3 pg (25.7-33.7); MCHC 33.4 g/dl (32.0-35.9); MEAN CELL VOLUME 81.9 fl (80-96); MEAN PLT VOLUME 7.5 fl (7.5-11.1); PLATELET COUNT 228 K/MM3 (134-434); WHITE BLOOD COUNT 5.2 K/mm3 (4.0-10.0)
[2017-05-22] MEDS ORDERED: HYDROmorphone HCL CARPU-JECT 1 MG/1 ML DISP.SYRIN IVPUSH ONE ×2 (04:33→06:56)
[2017-05-22] MEDS ORDERED: HYDROmorphone HCL CARPU-JECT 1 MG/1 ML DISP.SYRIN ONE ×2 (04:33→06:57)
[2017-05-22 04:42] LABS: ANION GAP 5 (8-16); CALCIUM 8.8 mg/dL (8.5-10.1); CO2 27 mmol/L (21-32); CREATININE 1.2 mg/dL (0.7-1.3); GLUCOSE,RANDOM 107 mg/dL (74-106)
--- NOTE | 2017-05-22 06:45 | PDOC ---
Attending Attestation - Resident Resident Name: Jose Maria Villalpando - HPI HPI: 05/22/17 06:44 Pt comes with renal colic that is getting worse. - Physicial Exam PE: 05/22/17 06:45 Agree with resident exam - Medical Decision Making 05/22/17 06:45 Admit for pain management.
[2017-05-22] MEDS ORDERED: HYDROmorphone HCL CARPU-JECT 1 MG/1 ML DISP.SYRIN IVPUSH PRN ×3 (08:02→09:25)
[2017-05-22] MEDS ORDERED: SODIUM CHLORIDE 1,000 ML IV SCH (08:15)
[2017-05-22] MEDS ORDERED: TAMSULOSIN HCL 0.4 MG CAP.ER.24H (FP) PO ONE (08:41)
--- NOTE | 2017-05-22 08:45 | HP ---
CHIEF COMPLAINT: Pain from kidney stone PCP: Dr. Elise Urologist: Dr. Rowe HISTORY OF PRESENT ILLNESS: Patient is a 52 year old male with a PMHx of Nephrolithiasis s/p Lithotripsy () who returns to the hospital complaining of sharp right flank pain radiating to the groin that has been constant since his lithotripsy two days ago. Patient was in the ED 24 hours prior and a repeat CT revealed a 6mm right UPJ calculus with mild hydropnephrosis and was then seen by his urologist, Dr. Rowe, who evaluated him. Patient's pain was adequately controlled and eventually discharged and told to return if pain worsens. Patient states the pain was worsening to the point he was unable to walk, which prompted this hospital visit. Patient does report drinking adequate amount of fluids. Otherwise, patient denies fever, nausea, vomiting, chest pain, palpitations, shortness of breath, dysuria, hematuria. ER course was notable for: (1) Dilaudid 1mg (2) 1 Bolus IV Normal Saline (3) KUB revealed 6mm right calculus Recent Travel: Denies PAST MEDICAL HISTORY: Nephrolithiasis PAST SURGICAL HISTORY: Achilles Tendon Rupture repair Social History: Smoking:Former smoker, quit 6 years ago. Smoked for 20+ years 1 PPD Alcohol: Denies Drugs: Occasional Marijuana Family History: Denies Allergies: Cat/Feline Product Derivatives Allergy (Verified 05/21/17 06:48) No Known Drug Allergies Allergy (Verified 05/21/17 06:48) HOME MEDICATIONS: Home Medications Medication Instructions Recorded Oxycodone HCl/Acetaminophen 1 - 2 tab PO Q4H 05/22/17 [Percocet 5-325 mg Tablet] REVIEW OF SYSTEMS CONSTITUTIONAL: Absent: fever, chills, diaphoresis, generalized weakness, malaise, loss of appetite, weight change HEENT: Absent: rhinorrhea, nasal congestion, throat pain, throat swelling, difficulty swallowing, mouth swelling, ear pain, eye pain, visual changes CARDIOVASCULAR: Absent: chest pain, syncope, palpitations, irregular heart rate, lightheadedness , peripheral edema RESPIRATORY: Absent: cough, shortness of breath, dyspnea with exertion, orthopnea, wheezing, stridor, hemoptysis GASTROINTESTINAL: Absent: abdominal pain, abdominal distension, nausea, vomiting, diarrhea, constipation, melena, hematochezia GENITOURINARY: Right flank pain Absent: dysuria, frequency, urgency, hesitancy, hematuria, genital pain MUSCULOSKELETAL: Absent: myalgia, arthralgia, joint swelling, back pain, neck pain SKIN: Absent: rash, itching, pallor HEMATOLOGIC/IMMUNOLOGIC: Absent: easy bleeding, easy bruising, lymphadenopathy, frequent infections ENDOCRINE: Absent: unexplained weight gain, unexplained weight loss, heat intolerance, cold intolerance NEUROLOGIC: Absent: headache, focal weakness or paresthesias, dizziness, unsteady gait, seizure, mental status changes, bladder or bowel incontinence PSYCHIATRIC: Absent: anxiety, depression, suicidal or homicidal ideation, hallucinations. PHYSICAL EXAMINATION Vital Signs - 24 hr 05/22/17 05/22/17 05/22/17 01:55 07:15 07:20 Temperature 97.9 F 97.4 F L Pulse Rate 78 Pulse Rate [ 58 L Right] Respiratory 18 18 Rate Blood Pressure 150/119 Blood Pressure 128/87 [Right Arm] O2 Sat by Pulse 100 100 97 Oximetry (%) GENERAL: Awake, alert, and fully oriented, in no acute distress. HEAD: Normal with no signs of trauma. EYES: Sclera anicteric, conjunctiva clear. EARS, NOSE, THROAT: Oropharynx clear without exudates. Moist mucous membranes. NECK: Normal range of motion, supple without lymphadenopathy. LUNGS: Breath sounds equal, clear to auscultation bilaterally. No wheezes, and no crackles. No accessory muscle use. HEART: Regular rate and rhythm, normal S1 and S2 without murmur, rub or gallop. ABDOMEN: Soft, nontender upon palpation of all 4 quadrants, not distended, normoactive bowel sounds, no guarding, no rebound, no masses. MUSCULOSKELETAL: Right CVA tenderness, (+) Santos's punch sign UPPER EXTREMITIES: No peripheral edema. LOWER EXTREMITIES: No calf tenderness. No peripheral edema. NEUROLOGICAL: No facial droop, motor strength 5/5 bilaterally. Sensations intact. CN II-XII (CN VII not done). Laboratory Results - last 24 hr 05/22/17 05/22/17 03:53 03:53 WBC 5.2 RBC 4.98 Hgb 13.6 Hct 40.8 MCV 81.9 MCH 27.3 MCHC 33.4 RDW 14.0 Plt Count 228 MPV 7.5 Sodium 137 Potassium 4.4 Chloride 105 Carbon Dioxide 27 Anion Gap 5 L BUN 9 Creatinine 1.2 Random Glucose 107 H D Calcium 8.8 IMAGES: KUB (05/22/17): A single view of the abdomen reveals pelvic phlebitis, minimal degenerative changes, retained stool in the colon and some air distended loops of bowel. Because of the bowel superimposed over the kidneys calcifications are difficult to see. There is suggestion of some faint right calcifications. A CT scan performed on 05/21/2017 at 0919 hours digit show right calcifications as well as a ureteral calcification. Again these are difficult to see on this study. Correlation recommended. ASSESSMENT/PLAN: Patient is a 52 year old male with a PMHx of recurrent Nephrolithiasis s/p Lithotripsy (05/20/17) who presents for right flank pain and KUB was done, which revealed a 6mm right UPJ calculus. Patient admitted for recurrent painful nephrolithiasis and admitted to med/surg for further monitoring and management. Nephrolithiasis S/P Lithotripsy -Patient continues to have severe right flank pain -Vitals are stable and labs reveal no WBC. -U/A positive for 3+ blood -KUB and CT abdomen reveal 6mm UPJ calculus with mild hydronephrosis -Hydration with IV Normal Saline @125mls/hr -Pain control with Dilaudid 0.5mg Q3H PRN. Will increase dose if pain nor adequately controlled -Flomax 0.8mg daily -Urine strain -Consulted Urologist, Dr. Rowe, who will evaluate patient today and for further recommendations F/E/N -IV NS @125mls/hr -Electrolytes wnl -Regular diet Prophylaxis -Low risk, EAM. SCD's for DVT -No GI required Disposition -Full code -OBS med/surg. Awaiting for Urology evaluation and recommendations. Visit type - Emergency Visit Emergency Visit: Yes ED Registration Date: 05/22/17 Care time: The patient presented to the Emergency Department on the above date and was hospitalized for further evaluation of their emergent condition. - New Patient This patient is new to me today: Yes Date on this admission: 05/22/17 - Critical Care Critical Care patient: No
[2017-05-22] MEDS: SODIUM CHLORIDE 1,000 ML IV SCH ×2 (09:19→20:28)
[2017-05-22] MEDS ORDERED: HYDROmorphone HCL CARPU-JECT 1 MG/1 ML DISP.SYRIN IVPB PRN ×2 (10:18→12:42)
--- NOTE | 2017-05-22 12:34 | PN ---
Progress Note (short form) - Note Progress Note: Urology FOllow up: Pt is s/p ESWL of right renal calculus. Present yesterday to eR WITH INCREASE IN RIGHT FLANK PAIN. CT scan revealed fragment of treated stone in the right mid ureter. Pain controlled and sent home. Repeat of severe painb and admitted for aggresive fluid hydration, pain management and possibel right uretrosocpy if stone fragment fails to pass. Will continue to follow the patient along with you. CBC WBC 5.2 K/mm3 (4.0-10.0) 05/22/17 03:53 RBC 4.98 M/mm3 (4.00-5.60) 05/22/17 03:53 Hgb 13.6 GM/dL (11.7-16.9) 05/22/17 03:53 Hct 40.8 % (35.4-49) 05/22/17 03:53 MCV 81.9 fl (80-96) 05/22/17 03:53 MCH 27.3 pg (25.7-33.7) 05/22/17 03:53 MCHC 33.4 g/dl (32.0-35.9) 05/22/17 03:53 RDW 14.0 % (11.9-15.9) 05/22/17 03:53 Plt Count 228 K/MM3 (134-434) 05/22/17 03:53 MPV 7.5 fl (7.5-11.1) 05/22/17 03:53 Laboratory 05/22/17 05/22/17 03:53 03:53 WBC 5.2 K/mm3 K/mm3 (4.0-10.0) RBC 4.98 M/mm3 M/mm3 (4.00-5.60) Hgb 13.6 GM/dL GM/dL (11.7-16.9) Hct 40.8 % % (35.4-49) MCV 81.9 fl fl (80-96) MCH 27.3 pg pg (25.7-33.7) MCHC 33.4 g/dl g/dl (32.0-35.9) RDW 14.0 % % (11.9-15.9) Plt Count 228 K/MM3 K/MM3 (134-434) MPV 7.5 fl fl (7.5-11.1) Sodium 137 mmol/L mmol/L (136-145) Potassium 4.4 mmol/L mmol/L (3.5-5.1) Chloride 105 mmol/L mmol/L (98-107) Carbon Dioxide 27 mmol/L mmol/L (21-32) Anion Gap 5 L (8-16) BUN 9 mg/dL mg/dL (7-18) Creatinine 1.2 mg/dL mg/dL (0.7-1.3) Random Glucose 107 mg/dL H D mg/dL (74-106) Calcium 8.8 mg/dL mg/dL (8.5-10.1)
[2017-05-22 12:46] VITALS: BMI 37.5
[2017-05-22] MEDS ORDERED: oxyCODONE HCL 5 MG TABLET PO PRN (13:13)
[2017-05-22] MEDS ORDERED: ACETAMINOPHEN 325 MG TABLET (FP) PO PRN (13:13)
[2017-05-22 16:25] LABS: URINE APPEARANCE CLEAR; URINE BILIRUBIN NEGATIVE (NEGATIVE); URINE BLOOD 3+ (NEGATIVE); URINE COLOR STRAW; URINE GLUCOSE (UA) NEGATIVE (NEGATIVE); URINE KETONE NEGATIVE (NEGATIVE); URINE LEUK ESTERASE NEGATIVE (NEGATIVE); URINE NITRITE NEGATIVE (NEGATIVE); URINE PROTEIN NEGATIVE (NEGATIVE); URINE UROBILINOGEN NEGATIVE mg/dL (0.2-1.0)
[2017-05-22 16:30] LABS: URINE RBC 3 /hpf (0-3); URINE WBC 2 /hpf (3-5)
--- NOTE | 2017-05-22 17:49 | PN ---
Teaching Attending Note Name of Resident: Salena Gan ATTENDING PHYSICIAN STATEMENT I saw and evaluated the patient. I reviewed the resident's note and discussed the case with the resident. I agree with the resident's findings and plan as documented. SUBJECTIVE: Patient is a 52 year old male with a PMHx of Nephrolithiasis s/p Lithotripsy () who returns to the hospital complaining of sharp right flank pain radiating to the groin that has been constant since his lithotripsy two days ago. Denies any fever or chills, no shortness of breath, no nausea or vomiting, patient stated that he gets kidney stones all the time and his brother as well. Stated that he was treated for kidney stones multiple times. OBJECTIVE: Vital Signs Temperature 98.2 F 05/22/17 14:45 Pulse Rate 65 05/22/17 14:45 Respiratory Rate 20 05/22/17 14:45 Blood Pressure 132/74 05/22/17 14:45 O2 Sat by Pulse Oximetry (%) 98 05/22/17 12:48 CBCD WBC 5.2 K/mm3 (4.0-10.0) 05/22/17 03:53 RBC 4.98 M/mm3 (4.00-5.60) 05/22/17 03:53 Hgb 13.6 GM/dL (11.7-16.9) 05/22/17 03:53 Hct 40.8 % (35.4-49) 05/22/17 03:53 MCV 81.9 fl (80-96) 05/22/17 03:53 MCHC 33.4 g/dl (32.0-35.9) 05/22/17 03:53 RDW 14.0 % (11.9-15.9) 05/22/17 03:53 Plt Count 228 K/MM3 (134-434) 05/22/17 03:53 MPV 7.5 fl (7.5-11.1) 05/22/17 03:53 CMP Sodium 137 mmol/L (136-145) 05/22/17 03:53 Potassium 4.4 mmol/L (3.5-5.1) 05/22/17 03:53 Chloride 105 mmol/L (98-107) 05/22/17 03:53 Carbon Dioxide 27 mmol/L (21-32) 05/22/17 03:53 Anion Gap 5 (8-16) L 05/22/17 03:53 BUN 9 mg/dL (7-18) 05/22/17 03:53 Creatinine 1.2 mg/dL (0.7-1.3) 05/22/17 03:53 Random Glucose 107 mg/dL (74-106) H D 05/22/17 03:53 Calcium 8.8 mg/dL (8.5-10.1) 05/22/17 03:53 Current Medications Generic Name Dose Route Start Last Admin Trade Name Freq PRN Reason Stop Dose Admin Acetaminophen 325 mg 05/22/17 13:13 Tylenol - PO 05/25/17 13:12 Q4H PRN PAIN 1-4 Hydromorphone HCl 2 mg 05/22/17 12:42 05/22/17 13:25 Dilaudid Injection - IVPB 2 mg Q3H PRN Administration PAIN Sodium Chloride 1,000 mls @ 125 mls/hr 05/22/17 08:36 05/22/17 09:19 Normal Saline - IV 125 mls/hr ASDIR [facility] Administration Oxycodone HCl 5 mg 05/22/17 13:13 Roxicodone - PO Q4H PRN PAIN 1-4 Tamsulosin HCl 0.8 mg 05/23/17 08:30 Flomax - PO DAILY@0830 [facility] Home Medications Medication Instructions Recorded Oxycodone HCl/Acetaminophen 1 - 2 tab PO Q4H 05/22/17 [Percocet 5-325 mg Tablet] CHESt:clear heart: S1S2 positive Abdomen: soft, Nt, NR, NO CvA tenderness ASSESSMENT AND PLAN: Patient is a 52 year old male with a PMHx of recurrent Nephrolithiasis s/p Lithotripsy (05/20/17) who presents to ED. for right flank pain , and CT scan revealed fragment of treated stone in the right mid ureter. KUB was done, which revealed a 6mm right UPJ calculus. # Fragments of Kidney stones S/P Lithotripsy ; IVF, pain medication Dilaudid 0.5mg q3h prn, Flomax 0.8mg daily ,Urine strain , urology consult will do intact PTH. NPO for now. DVT Px: SCDs
[2017-05-23] MEDS: SODIUM CHLORIDE 1,000 ML IV SCH ×3 (04:30→13:02)
--- NOTE | 2017-05-23 06:34 | PN ---
Physical Exam: SUBJECTIVE: Patient seen and examined this AM. States he still has intermittent R flank pain. Has strained urine but stone has not passed. Understands that procedure may be performed today. No CP, no SOB, no fevers, no chills. Dr. Rowe informed medical team that procedure will be tomorrow. OBJECTIVE: Vital Signs Period Temp Pulse Resp BP Sys/Anaya Pulse Ox Last 24 Hr 97.9 F-98.4 F 61-65 20-20 126-136/74-93 98 GEN: AAO x3 HNT: PERRLA, EOMi CV: S1, S2, RRR LUNG: CTABL ABD: Soft, NT, ND MSK: No flank tenderness NEURO: Cranial nerves 2-12 intact, no sensation or MSK deficits Home Medication List Medication Instructions Recorded Confirmed Type Oxycodone HCl/Acetaminophen 1 - 2 tab PO Q4H 05/22/17 05/22/17 History [Percocet 5-325 mg Tablet] Active Medications Generic Name Dose Route Start Last Admin Trade Name Freq PRN Reason Stop Dose Admin Acetaminophen 325 mg 05/23/17 11:32 Tylenol - PO 05/26/17 10:39 Q6H PRN PAIN 1-4 Hydromorphone HCl 1 mg 05/23/17 07:10 05/23/17 08:14 Dilaudid Injection - IVPB 1 mg Q3H PRN Administration PAIN Sodium Chloride 1,000 mls @ 125 mls/hr 05/22/17 08:36 05/23/17 09:02 Normal Saline - IV Not Given ASDIR [facility] Oxycodone HCl 5 mg 05/23/17 11:33 Roxicodone - PO Q6H PRN PAIN Tamsulosin HCl 0.8 mg 05/23/17 08:30 05/23/17 08:19 Flomax - PO Not Given DAILY@0830 [facility] ASSESSMENT/PLAN: Pt is a 52yo M with recurrent Nephrolithiasis s/p recent Lithotripsy on 05/20/17 who presents with R flank pain. He was found to have a residual 6mm R UPJ calculus. # Nephrolithiasis - CT abd shows 6mm UPJ calculus w/ mild hydronephrosis - Pt did not pass stone last night - R ureteroscopy tmrw as per Uro - PTH pending - NPO after midnight - IVNS at 125cc/hr - Dilaudid 1.0mg Q3H PRN + Percocet 5/325 Q6 PRN - Flomax 0.8mg QD # FEN - Fluids: IVNS 125cc/hr - Electrolytes: Monitor today - Diet: Regular diet, NPO after midnight # Prophylaxis - DVT: Low risk, Conor stockings, pt ambulating - GI: Not needed # Dispo - R ureteroscopy tomorrow Visit type - Emergency Visit Emergency Visit: No - New Patient This patient is new to me today: No - Critical Care Critical Care patient: No - Discharge Referral Referred to [facility] Med P.C.: No
[2017-05-23] MEDS ORDERED: HYDROmorphone HCL CARPU-JECT 1 MG/1 ML DISP.SYRIN IVPB PRN (06:36)
[2017-05-23] MEDS: HYDROmorphone HCL CARPU-JECT 1 MG/1 ML DISP.SYRIN IVPB PRN (08:14)
[2017-05-23] MEDS: TAMSULOSIN HCL 0.4 MG CAP.ER.24H (FP) PO SCH (08:19)
[2017-05-23] MEDS ORDERED: TAMSULOSIN HCL 0.4 MG CAP.ER.24H (FP) PO SCH (08:30)
[2017-05-23] MEDS ORDERED: ACETAMINOPHEN 325 MG TABLET (FP) PO PRN ×2 (10:40→11:32)
[2017-05-23] MEDS ORDERED: oxyCODONE HCL 5 MG TABLET PO PRN ×2 (10:40→11:33)
--- NOTE | 2017-05-23 11:26 | PN ---
Teaching Attending Note Name of Resident: Karel Morris ATTENDING PHYSICIAN STATEMENT I saw and evaluated the patient. I reviewed the resident's note and discussed the case with the resident. I agree with the resident's findings and plan as documented. SUBJECTIVE: Comfortable, pain controlled on IV pain meds. OBJECTIVE: Vital Signs Temperature 98.5 F 05/23/17 10:00 Pulse Rate 56 L 05/23/17 10:00 Respiratory Rate 20 05/23/17 10:00 Blood Pressure 120/96 05/23/17 10:00 O2 Sat by Pulse Oximetry (%) 100 05/23/17 09:00 CBCD WBC 5.2 K/mm3 (4.0-10.0) 05/22/17 03:53 RBC 4.98 M/mm3 (4.00-5.60) 05/22/17 03:53 Hgb 13.6 GM/dL (11.7-16.9) 05/22/17 03:53 Hct 40.8 % (35.4-49) 05/22/17 03:53 MCV 81.9 fl (80-96) 05/22/17 03:53 MCHC 33.4 g/dl (32.0-35.9) 05/22/17 03:53 RDW 14.0 % (11.9-15.9) 05/22/17 03:53 Plt Count 228 K/MM3 (134-434) 05/22/17 03:53 MPV 7.5 fl (7.5-11.1) 05/22/17 03:53 CMP Sodium 137 mmol/L (136-145) 05/22/17 03:53 Potassium 4.4 mmol/L (3.5-5.1) 05/22/17 03:53 Chloride 105 mmol/L (98-107) 05/22/17 03:53 Carbon Dioxide 27 mmol/L (21-32) 05/22/17 03:53 Anion Gap 5 (8-16) L 05/22/17 03:53 BUN 9 mg/dL (7-18) 05/22/17 03:53 Creatinine 1.2 mg/dL (0.7-1.3) 05/22/17 03:53 Random Glucose 107 mg/dL (74-106) H D 05/22/17 03:53 Calcium 8.8 mg/dL (8.5-10.1) 05/22/17 03:53 Current Medications Generic Name Dose Route Start Last Admin Trade Name Freq PRN Reason Stop Dose Admin Acetaminophen 650 mg 05/23/17 10:40 Tylenol - PO 05/26/17 10:39 Q4H PRN PAIN 1-4 Hydromorphone HCl 1 mg 05/23/17 07:10 05/23/17 08:14 Dilaudid Injection - IVPB 1 mg Q3H PRN Administration PAIN Sodium Chloride 1,000 mls @ 125 mls/hr 05/22/17 08:36 05/23/17 09:02 Normal Saline - IV Not Given ASDIR [facility] Oxycodone HCl 10 mg 05/23/17 10:40 Roxicodone - PO Q4H PRN PAIN 1-4 Tamsulosin HCl 0.8 mg 05/23/17 08:30 05/23/17 08:19 Flomax - PO Not Given DAILY@0830 [facility] Home Medications Medication Instructions Recorded Oxycodone HCl/Acetaminophen 1 - 2 tab PO Q4H 05/22/17 [Percocet 5-325 mg Tablet] ASSESSMENT AND PLAN: Patient is a 52 year old male with a PMHx of recurrent Nephrolithiasis s/p Lithotripsy (05/20/17) who presents to ED. for right flank pain , and CT scan revealed fragment of treated stone in the right mid ureter. KUB was done, which revealed a 6mm right UPJ calculus. # Fragments of Kidney stones S/P Lithotripsy ; Patient is going to OR in am by , IVF continue ,pain medication Dilaudid 0.5mg q3h prn IV, Flomax 0.8mg daily ,Urine strain . intact PTH is pending . NPO after midnight since going to OR. DVT Px: SCDs
--- NOTE | 2017-05-23 16:04 | MSN ---
Admitting History and Physical - Admission Chief Complaint: right flank pain History of Present Illness: Patient is a 52 year old male with past medical history of recurrent nephrolithiasis, family history of nephrolithiasis, s/p lithotripsy who presented to the ED with 10/10 sharp, non-radiating, worsening right flank pain. CT showed a 6 mm stone in the right uretopelvic junction and calculi in the lower pole of the right kidney. Patient stated that he was able to pass some stones along with a small amount of dark blood. 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: Alzheimer's, CVA, Dementia, Migraine, Multiple Sclerosis, Peripheral Neuropathy, Parkinson's, Seizure, Syncope, TIA, Vertigo, Other Cardiovascular: No: AFIB, Aneurysm, Aortic Insufficiency, Aortic Stenosis, CAD, CHF, Deep Vein Thrombosis, HTN, Hyperlipdemia, ME, Mitral Insufficiency, Mitral Stenosis, Murmur, Pulmonary Hypertension, Other Pulmonary: No: Asthma, Bronchitis, Cancer, COPD, O2 Dependent, Pneumonia, Previously Intubated, Pulmonary Embolus, Pulmonary Fibrosis, Sleep Apnea, Other Gastrointestinal: Yes: Constipation (patient states he feels constipated, and has not had a bowel movement since Tuesday even though he has been trying.), Other Hepatobiliary: No: Cirrhosis, Cholelithiasis, Cholecystitis, Choledocholithiasis , Hepatitis A, Hepatitis B, Hepatitis C, Other Renal/: Yes: BPH, Renal Calculi (Previous stones treated with ESWL) Heme/Onc: No: Anemia, B12 Deficiency, Bleeding Disorder, Cancer, Current Chemotherapy, Current Radiation Therapy, Hemochromatosis, Hypercoaguable State, Myeloproliferative Synd, Sickle Cell Disease, Sickle Cell Trait, Thrombocytopenia, Other Infectious Disease: No: AIDS, C-Diff, Herpes Zoster, HIV, MRSA, STD's, Tuberculosis, VREF, Other Psych: No: Addictions, Anxiety, Bipolar, Depression, Panic, Psychosis, Schizophrenia, Other Musculoskeletal: No: Bursitis, Chronic low back pain, Hemiparesis, Hemiplegia, Osteoarthritis, Paraplegia, Other Rheumatology: No: Fibromyalgia, Gout, Lupus, Rheumatoid Arthritis, Sarcoidosis, Vasculitis, Other ENT: No: Allergic Rhinitis, Sinusitis, Other Endocrine: No: Cleveland's Disease, Crystal's Disease, Diabetes Insipidus, Diabetes Mellitus, Hyperparathyroidism, Hyperthyroidism, Hypothyroidism, Osteopenia, SIADH, Other Dermatology: No: Basal Cell, Cellulitis, Eczema, Melanoma, Psoriasis, Squamous Cell, Other - Past Surgical History Additional Past Surgical History: Patient stated that he has had bilateral Achilles tendons repaired in the past. - Smoking History Smoking history: Former smoker Have you smoked in the past 12 months: No Aproximately how many cigarettes per day: 0 If you are a former smoker, when did you quit?: quit 7 years ago (2009) - Alcohol/Substance Use Hx Alcohol Use: No History of Substance Use: reports: Marijuana (occasionally) - Social History History of Recent Travel: No Home Medications - Allergies Allergies/Adverse Reactions: Allergies Allergy/AdvReac Type Severity Reaction Status Date / Time Cat/Feline Product Allergy Verified 05/21/17 06:48 Derivatives No Known Drug Allergies Allergy Verified 05/21/17 06:48 - Home Medications Home Medications: Ambulatory Orders Oxycodone HCl/Acetaminophen [Percocet 5-325 mg Tablet] 1 - 2 tab PO Q4H Family Disease History - Family Disease History Family Disease History: Other: Brother (nephrolithiasis) Review of Systems - Review of Systems Constitutional: reports: No Symptoms Eyes: reports: Other HENT: reports: No Symptoms Neck: reports: No Symptoms Cardiovascular: reports: No Symptoms Respiratory: reports: No Symptoms Gastrointestinal: reports: Constipation Genitourinary: reports: Flank Pain, Hematuria, Pain Musculoskeletal: reports: No Symptoms Integumentary: reports: No Symptoms Neurological: reports: No Symptoms Endocrine: reports: No Symptoms Physical Examination Vital Signs: Vital Signs Temperature 98.3 F 05/23/17 15:25 Pulse Rate 60 05/23/17 15:25 Respiratory Rate 20 05/23/17 15:25 Blood Pressure 133/89 05/23/17 15:25 O2 Sat by Pulse Oximetry (%) 100 05/23/17 09:00 Constitutional: Yes: Well Nourished, No Distress, Calm Eyes: Yes: WNL, Conjunctiva Clear, EOM Intact HENT: Yes: WNL, Atraumatic, Normocephalic Neck: Yes: WNL, Supple, Trachea Midline Cardiovascular: Yes: WNL, Regular Rate and Rhythm Respiratory: Yes: WNL, Regular, CTA Bilaterally Gastrointestinal: Yes: WNL, Normal Bowel Sounds Renal/: Yes: CVA Tenderness - Right Musculoskeletal: Yes: WNL Extremities: Yes: Other (right leg is larger than left in size, but patient stated it is his baseline size. 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.) Edema: No Peripheral Pulses WNL: Yes Integumentary: Yes: WNL Neurological: Yes: WNL, Alert, Oriented Psychiatric: Yes: WNL Labs: Laboratory Results - last 24 hr 05/22/17 05/23/17 05/23/17 14:20 13:15 13:15 Urine Color Straw Urine Appearance Clear Urine pH 7.0 Ur Specific Lee 1.020 Urine Protein Negative Urine Glucose (UA) Negative Urine Ketones Negative Urine Blood 3+ H Urine Nitrite Negative Urine Bilirubin Negative Urine Urobilinogen Negative Ur Leukocyte Esterase Negative Urine RBC 3 Urine WBC 2 Ur Epithelial Cells Rare Blood Type B POSITIVE B POSITIVE Antibody Screen Negative Imaging - Results X-ray: Report Reviewed (KUB showed faint right calcifications) Cat Scan: Report Reviewed (05/21- 6 mm stone in right UPJ, some calcifications in the lower pole of right kidney) Problem List - Problems (1) Right flank pain Code(s): R10.9 - UNSPECIFIED ABDOMINAL PAIN Assessment/Plan Patient is a 52 year old male with past medical history of nephrolithiasis s/p lithotripsy. Presented to the ED with right flank pain, admitted for right calculus in UPJ. CT showed a 6mm stone in the right UPJ with other calcifications in the lower pole of right kidney. #Nephrolithiasis -most likely due to a combination of genetics and prior history -no signs of pyelonephritis (WBC NL, afebrile) -microscopic hematuria (UA showed 3+ blood, 2 rbc/hpf, 3 wbc/hpf) -NS 125 mls/hr -tamsulosin 0.8mg PO daily -dilaudid 1mg IVPB Q3H PRN, percocet 5-325mg PO Q6H -urology was consulted, ureteroscopy tomorrow, prophylactic antibiotics given #FEN -fluids: NS 125mls/hr -electrolytes: no abnormalities -Nutrition: normal diet. NPO after midnight #Prophylaxis -DVT: low risk. Pt wearing stockings, ambulating -GI: not needed -deconditioning: no PT currently. Pt ambulating #Dispo -uretroscope tomorrow
--- NOTE | 2017-05-23 16:51 | PN ---
Progress Note (short form) - Note Progress Note: Urology: Pt continues with instermittent pain right flank. Scheduled for right ureteroscopy and laser fragmetnation of the stone. NPO after midnight.
[2017-05-24] MEDS: TAMSULOSIN HCL 0.4 MG CAP.ER.24H (FP) PO SCH ×2 (08:27→16:45)
[2017-05-24] MEDS: HYDROmorphone HCL CARPU-JECT 1 MG/1 ML DISP.SYRIN IVPB PRN (09:08)
[2017-05-24] MEDS: SODIUM CHLORIDE 1,000 ML IV SCH ×2 (09:09→16:57)
--- NOTE | 2017-05-24 09:40 | PN ---
Physical Exam: SUBJECTIVE: Patient seen and examined this AM. No complaints. Patient is straining urine, did not pass stone yet. No fevers, no chills. OBJECTIVE: Vital Signs Period Temp Pulse Resp BP Sys/Anaya Pulse Ox Last 24 Hr 97.8 F-98.5 F 52-61 18-20 118-137/69-96 96 GEN: AAO x3, NAD, Lying comfortably, currently in no pain HNT: PERRLA, EOMi CV: S1, S2, RRR LUNG: CTABL ABD: Soft, NT, ND, normoactive BS MSK: No flank tenderness at the moment NEURO: Cranial nerves 2-12 intact, no sensation or MSK deficits Laboratory Results - last 24 hr 05/23/17 05/23/17 13:15 13:15 Blood Type B POSITIVE B POSITIVE Antibody Screen Negative Active Medications Generic Name Dose Route Start Last Admin Trade Name Freq PRN Reason Stop Dose Admin Acetaminophen 325 mg 05/23/17 11:32 Tylenol - PO 05/26/17 10:39 Q6H PRN PAIN 1-4 Hydromorphone HCl 1 mg 05/23/17 07:10 05/24/17 09:08 Dilaudid Injection - IVPB 1 mg Q3H PRN Administration PAIN Sodium Chloride 1,000 mls @ 125 mls/hr 05/22/17 08:36 05/24/17 09:09 Normal Saline - IV Not Given ASDIR [facility] Gentamicin Sulfate 120 mg/ 100.5 mls @ 100 mls/hr 05/24/17 13:00 Sodium Chloride IVPB 05/24/17 14:00 ONCE ONE Oxycodone HCl 5 mg 05/23/17 11:33 Roxicodone - PO Q6H PRN PAIN Tamsulosin HCl 0.8 mg 05/23/17 08:30 05/24/17 08:27 Flomax - PO Not Given DAILY@0830 [facility] ASSESSMENT/PLAN: Pt is a 52yo M with recurrent Nephrolithiasis s/p recent Lithotripsy on 05/20/17 who presents with R flank pain. He was found to have a residual 6mm R UPJ calculus. # Nephrolithiasis - CT abd shows 6mm UPJ calculus w/ mild hydronephrosis - R ureteroscopy today as per Uro - PTH pending - NPO after midnight - IVNS at 125cc/hr - Dilaudid 1.0mg Q3H PRN + Percocet 5/325 Q6 PRN - Flomax 0.8mg QD # FEN - Fluids: IVNS 125cc/hr - Electrolytes: Monitor today - Diet: Regular diet, NPO after midnight # Prophylaxis - DVT: Low risk, Conor stockings, pt ambulating - GI: Not needed # Dispo - R ureteroscopy tomorrow Visit type - Emergency Visit Emergency Visit: No - New Patient This patient is new to me today: No - Critical Care Critical Care patient: No - Discharge Referral Referred to [facility] Med P.C.: No
[2017-05-24 10:12] LABS: CALCIUM 8.6 mg/dL (8.7-10.2)
[2017-05-24] MEDS ORDERED: SODIUM CHLORIDE IVPB ONE (13:00)
[2017-05-24] MEDS ORDERED: GENTAMICIN IVPB ONE (13:00)
[2017-05-24] MEDS ORDERED: MIDAZOLAM HCL 2 MG/2 ML SINGLE DOSE VIAL ONE (15:05)
[2017-05-24] MEDS ORDERED: GENTAMICIN 80MG PREMIX BAG IVPB ONE (15:29)
[2017-05-24] MEDS ORDERED: LACTATED RINGERS SOLUTION 1,000 ML IV SCH (16:30)
[2017-05-24] MEDS ORDERED: ACETAMINOPHEN 1000 MG/100 ML VIAL (NON FORMULARY) IVPB ONE (16:30)
[2017-05-24] MEDS ORDERED: KETOROLAC TROMETHAMINE 30 MG/1 ML VIAL IVPUSH ONE (16:30)
[2017-05-24] MEDS ORDERED: ONDANSETRON 4 MG/2 ML VIAL IVPUSH PRN (16:30)
--- NOTE | 2017-05-24 16:32 | OP ---
Operative Note - Note: Operative Date: 05/24/17 Pre-Operative Diagnosis: right ureteral calculus Operation: right retrograde and ureteroscopy Findings: Right uretral orifice identified but unable to pass open ended stent or sensor guide wire into the right ureter. Attemt at urteroscopy over the guide wire failed to identify the true ureteral lumen and the procedure was stopped. No stone was identifiend Surgeon: Live Rowe Anesthesia: General Estimated Blood Loss (mls): 10 Drains & Tubes with Location: none Fluid Volume Replaced (mls): 600 Operative Report Dictated: Yes
[2017-05-24] MEDS ORDERED: ACETAMINOPHEN INJECTION 100 ML IVPB ONE (16:33)
[2017-05-24] MEDS ORDERED: KETOROLAC TROMETHAMINE 30 MG/1 ML VIAL ONE (16:33)
--- NOTE | 2017-05-24 16:48 | PN ---
Teaching Attending Note Name of Resident: Karel Morris ATTENDING PHYSICIAN STATEMENT I saw and evaluated the patient. I reviewed the resident's note and discussed the case with the resident. I agree with the resident's findings and plan as documented. SUBJECTIVE: Comfortable with no acute distress. OBJECTIVE: Vital Signs Temperature 98 F 05/24/17 14:30 Pulse Rate 52 L 05/24/17 14:30 Respiratory Rate 18 05/24/17 14:30 Blood Pressure 125/79 05/24/17 14:30 O2 Sat by Pulse Oximetry (%) 100 05/24/17 09:00 CBCD WBC 5.2 K/mm3 (4.0-10.0) 05/22/17 03:53 RBC 4.98 M/mm3 (4.00-5.60) 05/22/17 03:53 Hgb 13.6 GM/dL (11.7-16.9) 05/22/17 03:53 Hct 40.8 % (35.4-49) 05/22/17 03:53 MCV 81.9 fl (80-96) 05/22/17 03:53 MCHC 33.4 g/dl (32.0-35.9) 05/22/17 03:53 RDW 14.0 % (11.9-15.9) 05/22/17 03:53 Plt Count 228 K/MM3 (134-434) 05/22/17 03:53 MPV 7.5 fl (7.5-11.1) 05/22/17 03:53 CMP Sodium 137 mmol/L (136-145) 05/22/17 03:53 Potassium 4.4 mmol/L (3.5-5.1) 05/22/17 03:53 Chloride 105 mmol/L (98-107) 05/22/17 03:53 Carbon Dioxide 27 mmol/L (21-32) 05/22/17 03:53 Anion Gap 5 (8-16) L 05/22/17 03:53 BUN 9 mg/dL (7-18) 05/22/17 03:53 Creatinine 1.2 mg/dL (0.7-1.3) 05/22/17 03:53 Random Glucose 107 mg/dL (74-106) H D 05/22/17 03:53 Calcium 8.6 mg/dL (8.7-10.2) L 05/22/17 17:30 Current Medications Generic Name Dose Route Start Last Admin Trade Name Freq PRN Reason Stop Dose Admin Acetaminophen 325 mg 05/23/17 11:32 Tylenol - PO 05/26/17 10:39 Q6H PRN PAIN 1-4 Acetaminophen 1,000 mg 05/24/17 16:30 05/24/17 16:44 Ofirmev Injection - IVPB 05/24/17 16:31 1,000 mg ONCE ONE Administration Fentanyl 25 mcg 05/24/17 16:30 Sublimaze Injection - IVPUSH 05/27/17 16:31 [id number] PRN PAIN Hydromorphone HCl 1 mg 05/23/17 07:10 05/24/17 09:08 Dilaudid Injection - IVPB 1 mg Q3H PRN Administration PAIN Sodium Chloride 1,000 mls @ 125 mls/hr 05/22/17 08:36 05/24/17 09:09 Normal Saline - IV Not Given ASDIR [facility] Lactated Ringer's 1,000 mls @ 125 mls/hr 05/24/17 16:30 Lactated Ringers Solution IV ASDIR [facility] Ketorolac Tromethamine 30 mg 05/24/17 16:30 05/24/17 16:47 Toradol Injection - IVPUSH 05/24/17 16:31 30 mg ONCE ONE Administration Levofloxacin 500 mg 05/25/17 10:00 Levaquin - PO DAILY [facility] Ondansetron HCl 4 mg 05/24/17 16:30 Zofran Injection IVPUSH 05/24/17 22:31 Q6H PRN NAUSEA AND/OR VOMITING Oxycodone HCl 5 mg 05/23/17 11:33 Roxicodone - PO Q6H PRN PAIN Tamsulosin HCl 0.8 mg 05/23/17 08:30 05/24/17 16:45 Flomax - PO 0.8 mg DAILY@0830 [facility] Administration Home Medications Medication Instructions Recorded Oxycodone HCl/Acetaminophen 1 - 2 tab PO Q4H 05/22/17 [Percocet 5-325 mg Tablet] PE: as per resident's note ASSESSMENT AND PLAN: Patient is a 52 year old male with a PMHx of recurrent Nephrolithiasis s/p Lithotripsy (05/20/17) who presents to ED. for right flank pain , and CT scan revealed fragment of treated stone in the right mid ureter. KUB was done, which revealed a 6mm right UPJ calculus. # Fragments of Kidney stones S/P Lithotripsy ; Patient is going to OR today by , IVF continue ,pain medication Dilaudid 0.5mg q3h prn IV, Flomax 0.8mg daily ,Urine strain . Intact PTH is slightly milagro . NPO for now ,going to OR . further w/u as an outpatient. DVT Px: SCDs
[2017-05-24] MEDS ORDERED: oxyCODONE HCL 5 MG TABLET PO PRN (16:49)
[2017-05-24] MEDS ORDERED: HYDROmorphone HCL CARPU-JECT 1 MG/1 ML DISP.SYRIN IVPB PRN (16:49)
[2017-05-24] MEDS ORDERED: ACETAMINOPHEN 325 MG TABLET (FP) PO PRN (16:49)
--- NOTE | 2017-05-25 08:11 | PN ---
Progress Note (short form) - Note Progress Note: Urology: POD #! Pt complains of minimal pain. AVSS Abdomen is soft and not tender or distended. Urine remains slightly bloody. Explained to patient that I did not remove the stone fragment due to distal ureteral scar tissue. He is scheduled for CAT scan today and then possible IR will need consultation for nephrostomy and antegrade placement of D/J stent. Labs pending: Pt currently stable. I am away for the rest of the week and Dr. Olson is covering.
[2017-05-25] MEDS: SODIUM CHLORIDE 1,000 ML IV SCH ×2 (08:23→15:57)
[2017-05-25] MEDS: TAMSULOSIN HCL 0.4 MG CAP.ER.24H (FP) PO SCH (08:23)
--- NOTE | 2017-05-25 08:55 | OP ---
DATE OF OPERATION: 05/24/2017 PREOPERATIVE DIAGNOSIS: Right renal colic. POSTOPERATIVE DIAGNOSIS: Right renal colic. OPERATIVE PROCEDURE: Cystoscopy, right ureteroscopy, and retrograde attempt. OPERATING SURGEON: Dakota Rowe MD ANESTHESIA: General. ANESTHESIOLOGIST: Morena Kang MD PROCEDURE: The patient was brought into the operating suite and induced with general anesthesia, placed in lithotomy position, prepped and draped in normal sterile fashion. A 22-Gambian cystoscopy sheath was inserted into the bladder without difficulty, and what appeared to be a wide mass, right ureteral orifice, was identified along the right trigonal ridge. Cannulation of the orifice with an open-ended catheter and a sensor tipped guidewire was performed. With these, however, the guidewire failed to pass up the right ureter, and curled in what appeared to be the ureter intraluminal portion. Injection of contrast revealed some pooling of the contrast, but no identification of a ureteral trajectory on the right side. Over the guidewire, a ureteroscope was then introduced and passed into what was the ureter, but appeared to be a false passage. There was no evidence of perforation and no evidence of periureteral fat. The guidewire and ureteroscope were removed. The bladder was emptied, and the patient placed supine, awakened, and then accompanied to the recovery area in stable condition. This was a clean-contaminant case with blood loss of 10 mL. DAKOTA ROWE M.D. [id number]
--- NOTE | 2017-05-25 13:06 | PN ---
Progress Note (short form) - Note Progress Note: CT reveals persistent hydronephrosis with stones. recommend nephrostomy tube on the right patient agrees
[2017-05-25 14:04] LABS: MCH 26.7 pg (25.7-33.7); MCHC 33.3 g/dl (32.0-35.9); MEAN CELL VOLUME 80.2 fl (80-96); PLATELET COUNT 239 K/MM3 (134-434); RDW 13.5 % (11.9-15.9); WHITE BLOOD COUNT 5.1 K/mm3 (4.0-10.0)
[2017-05-25 14:23] LABS: INR 1.3 (0.82-1.09); PROTHROMBIN TIME (PATIENT) 14.4 SEC (9.98-11.88)
[2017-05-25 14:29] LABS: ANION GAP 6 (8-16); CALCIUM 9.1 mg/dL (8.5-10.1); CO2 29 mmol/L (21-32); CREATININE 1.1 mg/dL (0.7-1.3); GLUCOSE,RANDOM 112 mg/dL (74-106)
--- NOTE | 2017-05-25 17:16 | PN ---
Physical Exam: SUBJECTIVE: Patient seen and examined this AM. No complaints. No pain, no SOB, no fevers, no chills. No abdominal pain OBJECTIVE: Vital Signs Period Temp Pulse Resp BP Sys/Anaya Pulse Ox Last 24 Hr 97 F-98.5 F 49-70 16-20 125-154/62-104 94-100 GEN: AAO x3, NAD, Lying comfortably, currently in no pain HNT: PERRLA, EOMi CV: S1, S2, RRR LUNG: CTABL ABD: Soft, NT, ND, normoactive BS MSK: No flank tenderness at the moment NEURO: Cranial nerves 2-12 intact, no sensation or MSK deficits Laboratory Results - last 24 hr 05/25/17 05/25/17 05/25/17 13:40 13:40 13:40 WBC 5.1 RBC 5.07 Hgb 13.5 Hct 40.7 MCV 80.2 MCH 26.7 MCHC 33.3 RDW 13.5 Plt Count 239 MPV 7.0 L INR 1.30 H Sodium 140 Potassium 4.1 Chloride 105 Carbon Dioxide 29 Anion Gap 6 L BUN 11 D Creatinine 1.1 Random Glucose 112 H Calcium 9.1 Home Medication List Medication Instructions Recorded Confirmed Type Oxycodone HCl/Acetaminophen 1 - 2 tab PO Q4H 05/22/17 05/22/17 History [Percocet 5-325 mg Tablet] Active Medications Generic Name Dose Route Start Last Admin Trade Name Freq PRN Reason Stop Dose Admin Acetaminophen 325 mg 05/25/17 08:07 Tylenol - PO 05/28/17 08:06 Q4H PRN PAIN Fentanyl 25 mcg 05/24/17 16:30 Sublimaze Injection - IVPUSH 05/27/17 16:31 [id number] PRN PAIN Hydromorphone HCl 1 mg 05/24/17 16:49 05/24/17 17:40 Dilaudid Injection - IVPB 1 mg Q3H PRN Administration PAIN Sodium Chloride 1,000 mls @ 125 mls/hr 05/24/17 16:49 05/25/17 15:57 Normal Saline - IV 125 mls/hr ASDIR HUA Administration Levofloxacin 500 mg 05/25/17 06:00 Levaquin - PO DAILY@0600 HUA Oxycodone HCl 5 mg 05/25/17 08:07 Roxicodone - PO Q4H PRN PAIN Tamsulosin HCl 0.8 mg 05/25/17 08:30 05/25/17 08:23 Flomax - PO 0.8 mg DAILY@0830 [facility] Administration ASSESSMENT/PLAN: Pt is a 52yo M with recurrent Nephrolithiasis s/p recent Lithotripsy on 05/20/17 who presents with R flank pain. He was found to have a residual 6mm R UPJ calculus. # Nephrolithiasis - Unsuccesful ureteroscopy procedure for stent placement - Spiral CT afterwards shows minimal air outside bladder, possible bladder perforation - Pt has no abdominal pain, seen by Urology, no concern for emergency surgical intervention - Pt underwent IR R nephrostomy tube today - Will need stent placement either w or Tuesday - PTH pending - IVNS at 125cc/hr - Dilaudid 1.0mg Q3H PRN + Percocet 5/325 Q6 PRN - Flomax 0.8mg QD # FEN - Fluids: IVNS 125cc/hr - Electrolytes: Monitor today - Diet: Regular diet # Prophylaxis - DVT: Low risk, Conor stockings, pt ambulating - GI: Not needed # Dispo - Call IR tomorrow to discuss double J stent placement (either tomorrow or Tuesday) Visit type - Emergency Visit Emergency Visit: No - New Patient This patient is new to me today: No - Critical Care Critical Care patient: No - Discharge Referral Referred to [facility] Med P.C.: No
--- NOTE | 2017-05-25 17:24 | PN ---
Teaching Attending Note Name of Resident: Karel Morris ATTENDING PHYSICIAN STATEMENT I saw and evaluated the patient. I reviewed the resident's note and discussed the case with the resident. I agree with the resident's findings and plan as documented. SUBJECTIVE: OBJECTIVE: Vital Signs Period Temp Pulse Resp BP Sys/Anaya Pulse Ox Last 24 Hr 97.0 F-98.5 F 49-70 16-20 125-154/62-104 94-100 ASSESSMENT AND PLAN: Patient is a 52 year old male with a PMHx of recurrent Nephrolithiasis s/p Lithotripsy (05/20/17) who presents to ED. for right flank pain , and CT scan revealed fragment of treated stone in the right mid ureter. KUB was done, which revealed a 6mm right UPJ calculus. # Fragments of Kidney stones S/P Lithotripsy ; Patient is going to OR today by , IVF continue ,pain medication Dilaudid 0.5mg q3h prn IV, Flomax 0.8mg daily ,Urine strain . Intact PTH is slightly milagro . NPO for now ,going to OR . further w/u as an outpatient. DVT Px: SCDs
[2017-05-25] MEDS ORDERED: METOCLOPRAMIDE HCL INJECTION 10 MG/2 ML VIAL IVPUSH ONE (18:52)
[2017-05-25] MEDS: LEVOFLOXACIN 500 MG TABLET (FP) PO SCH (19:52)
[2017-05-25] MEDS: oxyCODONE HCL 5 MG TABLET PO PRN (20:17)
[2017-05-25] MEDS: ACETAMINOPHEN 325 MG TABLET (FP) PO PRN (20:18)
[2017-05-26] MEDS: LEVOFLOXACIN 500 MG TABLET (FP) PO SCH (06:24)
--- NOTE | 2017-05-26 07:35 | PN ---
Physical Exam: SUBJECTIVE: Patient seen and examined this AM. Has pain near incision cite. No CP, no SOB, no fevers, no chills. OBJECTIVE: Vital Signs Period Temp Pulse Resp BP Sys/Anaya Pulse Ox Last 24 Hr 97.3 F-98.5 F 58-73 16-18 125-154/56-104 94-100 GEN: AAO x3, NAD, Lying comfortably, currently in no pain HNT: PERRLA, EOMi CV: S1, S2, RRR LUNG: CTABL ABD: Soft, NT, ND, normoactive BS MSK: No flank tenderness at the moment NEURO: Cranial nerves 2-12 intact, no sensation or MSK deficits Laboratory Results - last 24 hr 05/25/17 05/25/17 05/25/17 13:40 13:40 13:40 WBC 5.1 RBC 5.07 Hgb 13.5 Hct 40.7 MCV 80.2 MCH 26.7 MCHC 33.3 RDW 13.5 Plt Count 239 MPV 7.0 L INR 1.30 H Sodium 140 Potassium 4.1 Chloride 105 Carbon Dioxide 29 Anion Gap 6 L BUN 11 D Creatinine 1.1 Random Glucose 112 H Calcium 9.1 Active Medications Generic Name Dose Route Start Last Admin Trade Name Freq PRN Reason Stop Dose Admin Acetaminophen 325 mg 05/25/17 08:07 05/25/17 20:18 Tylenol - PO 05/28/17 08:06 325 mg Q4H PRN Administration PAIN Fentanyl 25 mcg 05/24/17 16:30 Sublimaze Injection - IVPUSH 05/27/17 16:31 [id number] PRN PAIN Hydromorphone HCl 1 mg 05/24/17 16:49 05/24/17 17:40 Dilaudid Injection - IVPB 1 mg Q3H PRN Administration PAIN Sodium Chloride 1,000 mls @ 125 mls/hr 05/24/17 16:49 05/25/17 15:57 Normal Saline - IV 125 mls/hr ASDIR HUA Administration Levofloxacin 500 mg 05/25/17 06:00 05/26/17 06:24 Levaquin - PO 500 mg DAILY@0600 [facility] Administration Oxycodone HCl 5 mg 05/25/17 08:07 05/25/17 20:17 Roxicodone - PO 5 mg Q4H PRN Administration PAIN Tamsulosin HCl 0.8 mg 05/25/17 08:30 05/25/17 08:23 Flomax - PO 0.8 mg DAILY@0830 [facility] Administration ASSESSMENT/PLAN: Pt is a 52yo M with recurrent Nephrolithiasis s/p recent Lithotripsy on 05/20/17 who presents with R flank pain. He was found to have a residual 6mm R UPJ calculus. Unsuccessful ureteroscopy procedure for stent placement. Spiral CT afterwards shows minimal air outside bladder, possible bladder perforation. Pt has no abdominal pain, seen by Urology, no concern for emergency surgical intervention # Nephrolithiasis - S/p IR R nephrostomy tube yest --> draining +1100 - Will need stent placement tomorrow - IVNS at 125cc/hr - Dilaudid 1.0mg Q3H PRN + Percocet 5/325 Q6 PRN - Flomax 0.8mg QD # Secondary Hyperparathyroidism - PTH high, calcium low, unlikely the cause of his nephrolithiasis - Pts kidney function is WNL - Will f/u as o/p # FEN - Fluids: IVNS 125cc/hr - Electrolytes: Monitor today - Diet: Regular diet # Prophylaxis - DVT: Low risk, Conor stockings, pt ambulating - GI: Not needed # Dispo - IR to do double J stent placement tomorrow Visit type - Emergency Visit Emergency Visit: No - New Patient This patient is new to me today: No - Critical Care Critical Care patient: No - Discharge Referral Referred to [facility] Med P.C.: No
[2017-05-26 07:42] LABS: MCHC 33.4 g/dl (32.0-35.9); MEAN PLT VOLUME 7.7 fl (7.5-11.1); PLATELET COUNT 249 K/MM3 (134-434); RDW 13.6 % (11.9-15.9); WHITE BLOOD COUNT 5.6 K/mm3 (4.0-10.0)
[2017-05-26 08:06] LABS: ANION GAP 9 (8-16); CALCIUM 9.1 mg/dL (8.5-10.1); CO2 27 mmol/L (21-32); GLUCOSE,RANDOM 114 mg/dL (74-106)
[2017-05-26] MEDS: TAMSULOSIN HCL 0.4 MG CAP.ER.24H (FP) PO SCH (08:10)
[2017-05-26] MEDS: oxyCODONE HCL 5 MG TABLET PO PRN ×2 (08:10→20:28)
[2017-05-26] MEDS: ACETAMINOPHEN 325 MG TABLET (FP) PO PRN ×2 (08:11→20:29)
--- NOTE | 2017-05-26 14:40 | PN ---
Teaching Attending Note Name of Resident: Karel Morris ATTENDING PHYSICIAN STATEMENT I saw and evaluated the patient. I reviewed the resident's note and discussed the case with the resident. I agree with the resident's findings and plan as documented. SUBJECTIVE: OBJECTIVE: Vital Signs Period Temp Pulse Resp BP Sys/Anaya Pulse Ox Last 24 Hr 97.3 F-98.9 F 58-76 16-18 124-154/56-104 94-100 ASSESSMENT AND PLAN:
[2017-05-26] MEDS: SODIUM CHLORIDE 1,000 ML IV SCH ×3 (15:03→23:17)
--- NOTE | 2017-05-26 16:08 | MSN ---
Progress Note (SOAP) - Subjective Chief Complaint: nephrolithiasis History of Present Illness: Patient was seen at bedside. Stated that he had localized pain where the nephrostomy tube was placed on the right side, but no other complaints. Patient stated that the nephrostomy tube collected a lot of fluid overnight and this morning. Denies headache, fever, chills, SOB, chest pain, abdominal pain, trouble urinating, hematuria, or pain with urination. - Current Medications Current Medications: Active Medications Acetaminophen (Tylenol -) 325 mg PO Q4H PRN PRN Reason: PAIN Stop: 05/28/17 08:06 Last Admin: 05/26/17 08:11 Dose: 325 mg Fentanyl (Sublimaze Injection -) 25 mcg IVPUSH [id number] PRN PRN Reason: PAIN Stop: 05/27/17 16:31 Hydromorphone HCl (Dilaudid Injection -) 1 mg IVPB Q3H PRN PRN Reason: PAIN Last Admin: 05/24/17 17:40 Dose: 1 mg Sodium Chloride (Normal Saline -) 1,000 mls @ 125 mls/hr IV ASDIR [facility] Last Admin: 05/26/17 15:03 Dose: 125 mls/hr Levofloxacin (Levaquin -) 500 mg PO DAILY@0600 [facility] Last Admin: 05/26/17 06:24 Dose: 500 mg Oxycodone HCl (Roxicodone -) 5 mg PO Q4H PRN PRN Reason: PAIN Last Admin: 05/26/17 08:10 Dose: 5 mg Tamsulosin HCl (Flomax -) 0.8 mg PO DAILY@0830 [facility] Last Admin: 05/26/17 08:10 Dose: 0.8 mg - Objective Vital Signs: Vital Signs Temperature 98.9 F 05/26/17 10:00 Pulse Rate 76 05/26/17 10:00 Respiratory Rate 18 05/26/17 10:00 Blood Pressure 124/81 05/26/17 10:00 O2 Sat by Pulse Oximetry (%) 100 05/26/17 09:00 Constitutional: Yes: Well Nourished, No Distress, Calm Cardiovascular: Yes: WNL, Regular Rate and Rhythm Respiratory: Yes: WNL, Regular, CTA Bilaterally Gastrointestinal: Yes: WNL, Normal Bowel Sounds, Soft Musculoskeletal: Yes: WNL Peripheral Pulses WNL: Yes Labs Lab Results: CBC, BMP 05/26/17 06:00 05/26/17 06:00 Imaging - Results Other: Report Reviewed (right percutaneous nephrostomy tube drainage) Problem List - Problems (1) Right flank pain Code(s): R10.9 - UNSPECIFIED ABDOMINAL PAIN Assessment/Plan Mr. Lopez is a 52 year old man with significant past medical history of recurrent nephrolithiasis s/p lithotripsy on 05/20/17. He had a residual calculus found in the ureteropelvic junction of the right kidney, which could not be treated with uretoscopy due to previous scar tissue in his ureter. Spiral CT showed a small amount of air outside of the bladder, which could indicate perforation. The patient denies abdominal pain and was seen by Urology , so there is no concern for surgical emergency at this time. #Recurrent nephrolithiasis -nephrostomy tube was placed by IR -1100 ml fluid drained overnight -pt will have a stent placed into the nephrostomy tube tomorrow to help dilate the ureter -levoquin 500mg PO QD for prophylaxis, EKG ordered to check for prolonged QT -IV NS 125 mls/hr to help flush the stone -Flomax 0.8 mg QD -Kidney function is within normal limits -pain management: Dilaudid 1.0mg Q3H PRN and Percocet 5/325 Q6H PRN #FEN -Fluids: IV NS 125 mls/hr -Electrolytes: WNL -Nutrition: NPO after midnight #Prophylaxis -DVT: christie stockings, pt ambulating -GI: not needed -deconditioning: not needed, pt ambulating daily #Dispo -pt having stent placed tomorrow
[2017-05-27] MEDS: LEVOFLOXACIN 500 MG TABLET (FP) PO SCH (06:35)
[2017-05-27] MEDS: SODIUM CHLORIDE 1,000 ML IV SCH (06:36)
[2017-05-27] MEDS: TAMSULOSIN HCL 0.4 MG CAP.ER.24H (FP) PO SCH (08:32)
--- NOTE | 2017-05-27 09:22 | PN ---
Physical Exam: SUBJECTIVE: Patient seen and examined this AM. No complaints. R neph tube drained about 700cc. No abdominal pain, no dysuria. No Cp, no SOB, no fevers, no chills. OBJECTIVE: Vital Signs Period Temp Pulse Resp BP Sys/Anaya Pulse Ox Last 24 Hr 97.7 F-98.9 F 51-76 16-20 122-135/81-93 100 GEN: AAO x3, NAD, sitting up comfortably, currently in no pain HNT: PERRLA, EOMi CV: S1, S2, RRR LUNG: CTABL ABD: Soft, NT, ND, normoactive BS MSK: No flank tenderness at the moment. R neph tube in place, draining pinkish fluid NEURO: Cranial nerves 2-12 intact, no sensation or MSK deficits Active Medications Generic Name Dose Route Start Last Admin Trade Name Freq PRN Reason Stop Dose Admin Acetaminophen 325 mg 05/25/17 08:07 05/26/17 20:29 Tylenol - PO 05/28/17 08:06 325 mg Q4H PRN Administration PAIN Fentanyl 25 mcg 05/24/17 16:30 Sublimaze Injection - IVPUSH 05/27/17 16:31 [id number] PRN PAIN Hydromorphone HCl 1 mg 05/24/17 16:49 05/24/17 17:40 Dilaudid Injection - IVPB 1 mg Q3H PRN Administration PAIN Sodium Chloride 1,000 mls @ 125 mls/hr 05/24/17 16:49 05/27/17 06:36 Normal Saline - IV 125 mls/hr ASDIR HUA Administration Levofloxacin 500 mg 05/25/17 06:00 05/27/17 06:35 Levaquin - PO 500 mg DAILY@0600 [facility]PLACED BY [facility] Administration Oxycodone HCl 5 mg 05/25/17 08:07 05/26/17 20:28 Roxicodone - PO 5 mg Q4H PRN Administration PAIN Tamsulosin HCl 0.8 mg 05/25/17 08:30 05/27/17 08:32 Flomax - PO 0.8 mg DAILY@0830 REPLACED BY [facility] Administration ASSESSMENT/PLAN: Pt is a 52yo M with recurrent Nephrolithiasis s/p recent Lithotripsy on 05/20/17 who presents with R flank pain. He was found to have a residual 6mm R UPJ calculus. Unsuccessful ureteroscopy procedure for stent placement. Spiral CT afterwards shows minimal air outside bladder, possible bladder perforation. Pt has no abdominal pain, seen by Urology, no concern for emergency surgical intervention # Nephrolithiasis - S/p IR R nephrostomy tube yest --> draining +700cc - Stent placement today - IVNS at 125cc/hr - Dilaudid 1.0mg Q3H PRN + Percocet 5/325 Q6 PRN - Flomax 0.8mg QD # Secondary Hyperparathyroidism - PTH high, calcium low, unlikely the cause of his nephrolithiasis - Pts kidney function is WNL - Will f/u as o/p # FEN - Fluids: IVNS 125cc/hr - Electrolytes: Monitor today - Diet: Regular diet # Prophylaxis - DVT: Low risk, Conor stockings, pt ambulating - GI: Not needed # Dispo - IR to do double J stent placement today - Will speak to Uro today for dispo Visit type - Emergency Visit Emergency Visit: No - New Patient This patient is new to me today: No - Critical Care Critical Care patient: No - Discharge Referral Referred to [facility] Med P.C.: No
[2017-05-27 09:54] VITALS: TEMP 98
[2017-05-27] MEDS ORDERED: MIDAZOLAM HCL 5 MG/ML 2ML VIAL IVPUSH STA ×4 (11:30→12:16)
[2017-05-27 13:29] VITALS: BP 128/72; PULSE 56
--- NOTE | 2017-05-27 16:10 | PN ---
Teaching Attending Note Name of Resident: Karel Morris ATTENDING PHYSICIAN STATEMENT I saw and evaluated the patient. I reviewed the resident's note and discussed the case with the resident. I agree with the resident's findings and plan as documented. SUBJECTIVE: No complaints. OBJECTIVE: Vital Signs Period Temp Pulse Resp BP Sys/Anaya Pulse Ox Last 24 Hr 97.7 F-98.1 F 51-90 12-20 122-169/62-102 97-100 HEART: S1S2, RRR LUNGS: Clear ABDOMEN: Obese, soft, non-tender, non-distended, normal BS EXTREMITIES: No edema ASSESSMENT AND PLAN:
--- NOTE | 2017-05-27 19:00 | DS ---
Physical Exam: SUBJECTIVE: Patient seen and examined this AM. No complaints. R neph tube drained about 700cc. No abdominal pain, no dysuria. No Cp, no SOB, no fevers, no chills. OBJECTIVE: Vital Signs Period Temp Pulse Resp BP Sys/Anaya Pulse Ox Last 24 Hr 97.7 F-98 F 51-90 12-20 122-169/62-102 97-100 PHYSICAL EXAM GEN: AAO x3, NAD, sitting up comfortably, currently in no pain HNT: PERRLA, EOMi CV: S1, S2, RRR LUNG: CTABL ABD: Soft, NT, ND, normoactive BS MSK: No flank tenderness at the moment. R neph tube in place, draining pinkish fluid NEURO: Cranial nerves 2-12 intact, no sensation or MSK deficits LABS Laboratory Last Values WBC 5.6 K/mm3 (4.0-10.0) 05/26/17 06:00 RBC 5.15 M/mm3 (4.00-5.60) 05/26/17 06:00 Hgb 13.9 GM/dL (11.7-16.9) 05/26/17 06:00 Hct 41.7 % (35.4-49) 05/26/17 06:00 MCV 81.0 fl (80-96) 05/26/17 06:00 MCH 27.0 pg (25.7-33.7) 05/26/17 06:00 MCHC 33.4 g/dl (32.0-35.9) 05/26/17 06:00 RDW 13.6 % (11.9-15.9) 05/26/17 06:00 Plt Count 249 K/MM3 (134-434) 05/26/17 06:00 MPV 7.7 fl (7.5-11.1) 05/26/17 06:00 INR 1.30 (0.82-1.09) H 05/25/17 13:40 Sodium 137 mmol/L (136-145) 05/26/17 06:00 Potassium 4.1 mmol/L (3.5-5.1) 05/26/17 06:00 Chloride 101 mmol/L (98-107) 05/26/17 06:00 Carbon Dioxide 27 mmol/L (21-32) 05/26/17 06:00 Anion Gap 9 (8-16) 05/26/17 06:00 BUN 9 mg/dL (7-18) 05/26/17 06:00 Creatinine 1.0 mg/dL (0.7-1.3) 05/26/17 06:00 Random Glucose 114 mg/dL (74-106) H 05/26/17 06:00 Calcium 9.1 mg/dL (8.5-10.1) 05/26/17 06:00 PTH Intact 74 pg/mL (15-65) H 05/22/17 17:30 PTH Intact Intraop 0 m (.) 05/22/17 17:30 Urine Color Straw 05/22/17 14:20 Urine Appearance Clear 05/22/17 14:20 Urine pH 7.0 (5.0-8.0) 05/22/17 14:20 Ur Specific [place] 1.020 (1.005-1.025) 05/22/17 14:20 Urine Protein Negative (NEGATIVE) 05/22/17 14:20 Urine Glucose (UA) Negative (NEGATIVE) 05/22/17 14:20 Urine Ketones Negative (NEGATIVE) 05/22/17 14:20 Urine Blood 3+ (NEGATIVE) H 05/22/17 14:20 Urine Nitrite Negative (NEGATIVE) 05/22/17 14:20 Urine Bilirubin Negative (NEGATIVE) 05/22/17 14:20 Urine Urobilinogen Negative mg/dL (0.2-1.0) 05/22/17 14:20 Ur Leukocyte Esterase Negative (NEGATIVE) 05/22/17 14:20 Urine RBC 3 /hpf (0-3) 05/22/17 14:20 Urine WBC 2 /hpf (3-5) 05/22/17 14:20 Ur Epithelial Cells Rare /hpf (FEW) 05/22/17 14:20 Blood Type B POSITIVE 05/23/17 13:15 Antibody Screen Negative 05/23/17 13:15 HOSPITAL COURSE: Date of Admission:05/22/17 Date of Discharge: 05/27/17 Pt is a 52yo M with recurrent Nephrolithiasis s/p recent Lithotripsy on 05/20/17 who presents with R flank pain. He was found to have a residual 6mm calculus in the R UPJ. # Nephrolithiasis - The patient was seen by Urology during the hospitalization, who tried to perform a ureteroscopy and stent placement retrograde. The procedure was unsuccesful due to ureteral scarring. A spiral CT after the procedure showed stone fragments near the UVJ and minimal air outside the bladder wall. Urology was notified, but no immediate intervention was taken as the patient was asymptomatic. The patient then underwent IR guided R nephrostomy tube placement followed by double J stent placement. Both procedures were uncomplicated. The patient will followup with Urology on Tuesday/Tuesday. He will be discharged on Levaquin for 4 more days, Flomax, and Tylenol for pain control. The patient was made aware of the hospital course and agrees with the plan Minutes to complete discharge: 55 Discharge Summary Reason For Visit: RENAL COLIC Current Active Problems Nephrolithiasis (Acute) Renal colic (Acute) Condition: Improved - Instructions Diet, Activity, Other Instructions: RECOMMENDATIONS - Please keep the incision area clean and dry - Do not remove the bandages - Try not to lay on your right side when you sleep NEW MEDICATIONS - Levaquin 500mg daily antibiotic to prevent infection - Flomax 0.8mg daily to help you urinate - Tylenol as needed for pain FOLLOWUP - Dr. Friedman - Urologist - PLEASE GO TO THE OFFICE TUESDAY OR TUESDAY to remove your kidney tube - Call the office before ([phone]) - Dr. Elise - Primary Care Doctor - f/u within 2 weeks If the skin around the tube is red, swollen, itches, or has a rash, come back to the ER If you star developing fevers, severe lower back pain, come back to the ER Referrals: Demetrius Elise [Primary Care Provider] - 2 Weeks Jose Maria Friedman MD [Staff Physician] - 1 Week (Followup for Stent Removal Tuesday or Tuesday) Disposition: HOME - Home Medications Comprehensive Discharge Medication List: Ambulatory Orders Acetaminophen [Tylenol .Regular Strength -] 325 mg PO Q4H PRN #30 tablet Levofloxacin [Levaquin -] 500 mg PO DAILY@0600 #4 tablet 05/27/17 Tamsulosin HCl [Flomax -] 0.8 mg PO DAILY@0830 #30 tab 05/27/17 This patient is new to me today: No Emergency Visit: No Critical Care patient: No - Discharge Referral Referred to [facility] Med P.C.: No
== END 2017-05-27 16:00 | disposition home or self-care (01) | DRG 694 ==
LOC: JER 01:25 → JERBED 07:30 → J5S 09:25 → OBSVTOIN 14:27
PROVIDERS: ADMIT Internal Medicine; ATTEND Internal Medicine
PROC: 0TJ98ZZ Inspection of Ureter, Via Natural or Artificial Opening Endoscopic (ICD-10-PCS; 2017-05-24)
PROC: 0TJB8ZZ Inspection of Bladder, Via Natural or Artificial Opening Endoscopic (ICD-10-PCS; 2017-05-24)
PROC: 0T9030Z Drainage of Right Kidney with Drainage Device, Percutaneous Approach (ICD-10-PCS; principal; 2017-05-25)
PROC: 0T763DZ Dilation of Right Ureter with Intraluminal Device, Percutaneous Approach (ICD-10-PCS; 2017-05-27)
DX: N13.2 Hydronephrosis with renal and ureteral calculous obstruction (principal); R31.29 Other microscopic hematuria; N25.81 Secondary hyperparathyroidism of renal origin
CPT/HCPCS: 36415; 50432; 50435; 50693; 74000-TC; 74176; 76000-TC; 80048; 81003; 81015; 82310; 83970; 85027; 85610; 86850; 86900; 86901; 87086; 94760; 99284-25; A4358; C1729; C1769; G0378

== ENCOUNTER 2017-06-04 09:01 | Emergency (ER) | payer OTHER ==
[2017-06-04 09:08] VITALS: BP 144/100; PULSE 72; TEMP 98.6; BMI 36.9
--- NOTE | 2017-06-04 10:28 | PDOC ---
History of Present Illness - General Chief Complaint: Wound Stated Complaint: FOLLOW UP (PCP SENT) Time Seen by Provider: 06/04/17 09:43 History Source: Patient Exam Limitations: No Limitations - History of Present Illness Initial Comments: 06/04/17 10:16 My Chief Complaint: here for dressing change History of Present Illness: Patient is a 52 yo male with history of multiple incidents of nephrolithiasis s/ p lithotripsy 05/20/17 here today referred by urologist for dressing change of drain to rt. flank area. Pt. reports that dressing came off and he called the urologist and he told him to come her for dressing change. Pt. denies any flank pain, fever, nausea of vomiting or abominal pain. He is urinating without difficulty.He has an appt with urologist for tube removal on . Urologist: Live Rowe ([phone]) Past History 06/04/17 10:29 06/04/17 10:39 Timing/Duration: unsure Associated Symptoms: reports: denies symptoms Past History - Past Medical History Allergies/Adverse Reactions: Allergies Allergy/AdvReac Type Severity Reaction Status Date / Time Cat/Feline Product Allergy Verified 06/04/17 09:04 Derivatives No Known Drug Allergies Allergy Verified 06/04/17 09:04 Home Medications: Ambulatory Orders Tamsulosin HCl [Flomax -] 0.8 mg PO DAILY@0830 #30 tab 05/27/17 Disorders: Yes (H/O KIDNEY STONES) Kidney Stones: Yes (MULTIPLE LITHOTRIPSY) - Immunization History Td Vaccination: Yes TDAP Vaccination: No Immunization Up to Date: No - Psycho/Social/Smoking Cessation Hx Anxiety: No Suicidal Ideation: No Smoking Status: Yes Smoking History: Never smoked Years of Tobacco Use: 20 Have you smoked in the past 12 months: No Number of Cigarettes Smoked Daily: 0 If you are a former smoker, when did you quit?: quit 7 years ago (2009) Cigars Per Day: 0 Information on smoking cessation initiated: No Hx Alcohol Use: No Drug/Substance Use Hx: No Substance Use Type: None Hx Substance Use Treatment: No Review of Systems - Review of Systems Able to Perform ROS?: Yes Constitutional: No: Symptoms Reported HEENTM: No: Symptoms Reported Respiratory: No: Symptoms reported Cardiac (ROS): No: Symptoms Reported ABD/GI: No: Symptoms Reported : Yes: Other (drain in place rt. flank area dressing fell off ) Musculoskeletal: No: Symptoms Reported Integumentary: No: Symptoms Reported *Physical Exam - Vital Signs Last Vital Signs Temp Pulse Resp BP Pulse Ox 98.6 F 72 18 144/100 100 06/04/17 09:05 06/04/17 09:05 06/04/17 09:05 06/04/17 09:05 06/04/17 09:05 - Physical Exam General Appearance: Yes: Appropriately Dressed Respiratory/Chest: positive: Lungs Clear, Normal Breath Sounds. negative: Chest Tender, Respiratory Distress Cardiovascular: positive: Regular Rhythm, Regular Rate, S1, S2 Musculoskeletal: positive: Normal Inspection. negative: CVA Tenderness, CVA Tenderness (R), CVA Tenderness (L) Integumentary: positive: Other (drain from lithotripsy 05/20/17 noted, no surrounding edema, erythema or tenderness rt. flank ) Neurologic: positive: Alert, Normal Response Procedures - Consent Consent obtained: From Patient - Additional Procedures Progress: 06/04/17 10:41 cleansed area around drain from lithotripsy with betadine, NS 0.9% dried area, applied 2X 2 gauze pad and tegaderm Medical Decision Making - Medical Decision Making 06/04/17 10:33 Patient is a 52 yo male with history of multiple incidents of nephrolithiasis s/ p lithotripsy 05/20/17 here today referred by urologist for dressing change of drain to rt. flank area. Pt. reports that dressing came off and he called the urologist and he told him to come her for dressing change. Pt. denies any flank pain, fever, nausea of vomiting or abominal pain. He is urinating without difficulty.He has an appt with urologist for tube removal on . dressing change rt. flank area Plan: dressing applied to around drain rt. flank area Keep dressing in place follow up with urologist on 06/07/17 06/04/17 10:39 06/04/17 10:42 *DC/Admit/Observation/Transfer Diagnosis at time of Disposition: Encounter for change of dressing - Discharge Dispostion Disposition: HOME Condition at time of disposition: Stable - Patient Instructions Additional Instructions: Keep dressing in place follow up with urologist on 06/07/17 return to emergency room if any fever, difficulty urinating, abdominal or back pain or nausea or vomiting or any new syptoms develop patient voiced understanding of discharge instructions and all questions were answered
== END 2017-06-04 10:44 | disposition home or self-care (01) ==
LOC: JERFT 09:01
DX: Z48.01 Encounter for change or removal of surgical wound dressing (principal)
CPT/HCPCS: 99281-25

== ENCOUNTER 2017-06-13 12:26 | Day surgery (SDC) | payer OTHER ==
[2017-06-10 11:35] VITALS: BMI 36.9
[2017-06-13] MEDS ORDERED: IBUPROFEN 800 MG/8 ML IJ IVPB PRN (14:01)
--- NOTE | 2017-06-13 14:01 | HP ---
History & Physical Update - History History: No Change - Physical Physical: No Change - Assessment Assessment: No Change - Plan Plan: No Change
[2017-06-13] MEDS ORDERED: ACETAMINOPHEN 1000 MG/100 ML VIAL (NON FORMULARY) IVPB ONE (14:02)
[2017-06-13] MEDS ORDERED: DEXAMETHASONE SOD PHOSPHATE 4 MG/1 ML VIAL ONE (14:10)
[2017-06-13] MEDS ORDERED: MIDAZOLAM HCL 2 MG/2 ML SINGLE DOSE VIAL ONE (14:11)
[2017-06-13] MEDS ORDERED: PROPOFOL 20 ML ONE ×2 (14:11)
[2017-06-13] MEDS ORDERED: DEXTROSE 5%-0.45% SALINE 1,000 ML IV SCH (14:15)
[2017-06-13] MEDS ORDERED: ceFAZolin SODIUM 1 GM VIAL IVPB ONE (14:45)
[2017-06-13] MEDS ORDERED: ceFAZolin SODIUM 1 GM VIAL ONE (14:45)
[2017-06-13] MEDS ORDERED: ONDANSETRON 4 MG/2 ML VIAL IVPUSH PRN (14:57)
[2017-06-13] MEDS ORDERED: oxyCODONE HCL 5 MG TABLET PO PRN (14:57)
[2017-06-13] MEDS ORDERED: LACTATED RINGERS SOLUTION 1,000 ML IV SCH (15:00)
[2017-06-13] MEDS ORDERED: ACETAMINOPHEN INJECTION 100 ML IVPB ONE (15:31)
[2017-06-13] MEDS ORDERED: IBUPROFEN 800 MG/8 ML IJ IVPB ONE (15:31)
[2017-06-13 18:18] VITALS: PULSE 60; TEMP 98
[2017-06-13 18:21] VITALS: BP 126/78
--- NOTE | 2017-06-30 11:29 | OP ---
DATE OF OPERATION: 06/13/2017 SURGEON: Jose Maria Friedman MD PREOPERATIVE DIAGNOSIS: Right ureteral calculi, hydronephrosis. POSTOPERATIVE DIAGNOSIS: Right ureteral calculi, hydronephrosis. PROCEDURE: Cystoscopy, right ureteroscopy, laser lithotripsy, stim placement, and nephrostomy tube removal. ANESTHESIA: General. PREOPERATIVE INDICATIONS: The patient is a 52-year-old male with history of right impacted ureteral calculi. He attempted ureteroscopy which was unsuccessful due to the obstructive nature of the stones. He had a subsequent nephrostomy tube. An internal stent was also placed at the time antegrade. He comes to the OR. OPERATION: The patient was brought to the OR, placed on the table in the supine position, given general anesthesia and IV antibiotics, and placed in the modified lithotomy position. The groin was prepped and draped sterilely. Cystoscopy was performed. The stent was seen emerging from the right ureteral orifice. It was grasped through the urethral meatus, and a wire was passed up that stent into the right kidney under fluoroscopic guidance. The stent was removed. A ureteroscope was then passed into the right ureter, and the stones were visualized. They were broken up with Holmium Laser Fiber and irrigated out. No other stones were seen along the course of the ureter. Along the second wire, a flexible ureteroscope was passed into the lower pole of the right kidney, where a large stone was seen. This was also broken up with the Laser Fiber. Scope was removed. On the remaining wire, a right ureteral stent was placed. The nephrostomy tube was removed under fluoroscopic guidance. The bladder was emptied. The patient was woken up. JOSE MARIA FRIEDMAN M.D. [id number]
== END 2017-06-13 18:21 | disposition home or self-care (01) ==
LOC: JASU-SURG 12:26
PROVIDERS: ATTEND Urology
PROC: 0TF68ZZ Fragmentation in Right Ureter, Via Natural or Artificial Opening Endoscopic (ICD-10-PCS; principal; 2017-06-13 14:00)
PROC: 0T768DZ Dilation of Right Ureter with Intraluminal Device, Via Natural or Artificial Opening Endoscopic (ICD-10-PCS; 2017-06-13 14:00)
PROC: 0TP5X0Z Removal of Drainage Device from Kidney, External Approach (ICD-10-PCS; 2017-06-13 14:00)
DX: N20.1 Calculus of ureter (principal); N13.30 Unspecified hydronephrosis
CPT/HCPCS: 76000-TC; 94760

== ENCOUNTER 2018-06-07 20:11 | Emergency (ER) | payer SELFPAY ==
[2018-06-07 20:17] VITALS: BP 153/94; PULSE 60; TEMP 98.2; BMI 36.9
[2018-06-07] MEDS ORDERED: SODIUM CHLORIDE 1,000 ML IV STA (20:18)
[2018-06-07] MEDS ORDERED: ONDANSETRON 4 MG/2 ML VIAL IVPUSH ONE (20:18)
[2018-06-07] MEDS ORDERED: KETOROLAC TROMETHAMINE 30 MG/1 ML VIAL IVPUSH ONE (20:18)
--- NOTE | 2018-06-07 20:18 | PDOC ---
Rapid Medical Evaluation Time Seen by Provider: 06/07/18 20:15 Medical Evaluation: Allergies Allergy/AdvReac Type Severity Reaction Status Date / Time Cat/Feline Product Allergy Verified 04/12/18 13:23 Derivatives No Known Drug Allergies Allergy Verified 04/12/18 13:23 06/07/18 20:16 Pt c/o : rt flank and back pain since this am, no hematuria, + vomiting, hx rt renal colic w/ litho and stent placement, last episode 03/2018 Pt on exam: rt cva tenderness, vss Pt ordered for : labs, ivf , toradol P to proceed to ED Discharge Disposition - Diagnosis Flank pain - Referrals - Patient Instructions - Post Discharge Activity
[2018-06-07 20:58] LABS: BASO % 0.7 % (0-2.0); EOS % 0.5 % (0-4.5); HEMATOCRIT 39.1 % (35.4-49); LYMPH % 18.8 % (8-40); MCH 27.2 pg (25.7-33.7); MCHC 33.3 g/dl (32.0-35.9); MEAN CELL VOLUME 81.8 fl (80-96); MONO % 5.6 % (3.8-10.2); NEUT % 74.4 % (42.8-82.8); PLATELET COUNT 271 K/MM3 (134-434); RBC 4.79 M/mm3 (4.00-5.60); RDW 13.6 % (11.9-15.9); WHITE BLOOD COUNT 7.1 K/mm3 (4.0-10.0)
[2018-06-07] MEDS ORDERED: KETOROLAC TROMETHAMINE 30 MG/1 ML VIAL ONE (20:58)
[2018-06-07] MEDS ORDERED: ONDANSETRON 4 MG/2 ML VIAL ONE (20:58)
--- NOTE | 2018-06-07 21:07 | PDOC ---
History of Present Illness - General History Source: Patient Exam Limitations: No Limitations - History of Present Illness Initial Comments: 06/07/18 21:00 The patient is a 53M with a PMH of recurrent nephrolithiasis (w/ stent placed 2017) who presents to the ER with complaints of R flank pain. The patient states that he began to develop pain this morning which is located in his R flank, radiating to his groin, constant, worsening and associated with 2 bouts of NBNB vomiting. He denies any fever, chills, dysuria, hematuria, CP, SOB. <Chaz Roberts - Last Filed: 06/08/18 00:00> <José Miguel Cole - Last Filed: 06/08/18 00:07> - General Chief Complaint: Pain, Acute Stated Complaint: KIDNEY STONES Time Seen by Provider: 06/07/18 20:15 Past History - Past Medical History COPD: No Disorders: Yes (H/O KIDNEY STONES) Kidney Stones: Yes (MULTIPLE LITHOTRIPSY) - Surgical History Orthopedic Surgery: Yes - Immunization History Td Vaccination: Yes TDAP Vaccination: No Immunization Up to Date: No - Suicide/Smoking/Psychosocial Hx Smoking Status: Yes Smoking History: Never smoked Years of Tobacco Use: 20 Have you smoked in the past 12 months: No Number of Cigarettes Smoked Daily: 0 If you are a former smoker, when did you quit?: quit 7 years ago (2009) Cigars Per Day: 0 Hx Alcohol Use: No Drug/Substance Use Hx: No Substance Use Type: None Hx Substance Use Treatment: No <Chaz Roberts - Last Filed: 06/08/18 00:00> <José Miguel Cole - Last Filed: 06/08/18 00:07> - Past Medical History Allergies/Adverse Reactions: Allergies Allergy/AdvReac Type Severity Reaction Status Date / Time Cat/Feline Product Allergy Verified 06/07/18 20:17 Derivatives No Known Drug Allergies Allergy Verified 06/07/18 20:17 Home Medications: Ambulatory Orders Tamsulosin HCl [Flomax -] 0.4 mg PO DAILY@0830 06/10/17 Tamsulosin HCl [Flomax] 0.4 mg PO DAILY #14 capsule 06/07/18 Oxycodone HCl/Acetaminophen [Percocet 10-325 mg Tablet] 1 each PO TID PRN #14 tablet MDD 3 tabs 06/08/18 Review of Systems - Review of Systems Able to Perform ROS?: Yes Comments:: 06/07/18 21:10 GENERAL/CONSTITUTIONAL: No fever or chills. No weakness. HEAD, EYES, EARS, NOSE AND THROAT: No change in vision. No ear pain or discharge. No sore throat. CARDIOVASCULAR: No chest pain, palpitations, or lightheadedness. RESPIRATORY: No cough, wheezing, shortness of breath, or hemoptysis. GASTROINTESTINAL: Positive for nausea and vomiting. No diarrhea, constipation, or abdominal pain. GENITOURINARY: Positive for R flank pain. No dysuria, frequency, hematuria, or change in urination. MUSCULOSKELETAL: No joint or muscle swelling or pain. No neck or back pain. SKIN: No rash or lesions. NEUROLOGIC: No headache, numbness, tingling, focal weakness, loss of consciousness, or change in strength/sensation. Is the patient limited [place] proficient: No <Chaz Roberts - Last Filed: 06/08/18 00:00> *Physical Exam - Vital Signs Last Vital Signs Temp Pulse Resp BP Pulse Ox 98.2 F 60 18 153/94 100 06/07/18 20:13 06/07/18 20:13 06/07/18 20:13 06/07/18 20:13 06/07/18 20:13 - Physical Exam Comments: 06/07/18 21:12 GENERAL: Well developed, well nourished. Awake and alert. No acute distress. HEENT: Normocephalic, atraumatic. Hearing grossly normal. Moist mucous membranes. PERRLA, EOMI. No conjunctival pallor. Sclera are non-icteric. NECK: Supple. Full ROM. CARDIOVASCULAR: Regular rate and rhythm. No murmurs, rubs, or gallops. PULMONARY: No evidence of respiratory distress. Lungs clear to auscultation bilaterally. No wheezing, rales or rhonchi. ABDOMINAL: Soft. Tenderness to deep palpation over RLQ. Non-distended. No rebound or guarding. GENITOURINARY: R CVA tenderness. MUSCULOSKELETAL: Normal range of motion at all joints. No bony deformities or tenderness. EXTREMITIES: No cyanosis. No clubbing. No edema. No calf tenderness or swelling. SKIN: Warm and dry. Normal capillary refill. No rashes. No jaundice. NEUROLOGICAL: Alert, awake, appropriate. Cranial nerves 2-12 grossly intact. Normal speech. Gait is normal without ataxia. PSYCHIATRIC: Cooperative. Good eye contact. Appropriate mood and affect. <Chaz Roberts - Last Filed: 06/08/18 00:00> - Vital Signs Last Vital Signs Temp Pulse Resp BP Pulse Ox 98.2 F 60 18 153/94 100 06/07/18 20:13 06/07/18 20:13 06/07/18 20:13 06/07/18 20:13 06/07/18 20:13 <José Miguel Cole - Last Filed: 06/08/18 00:07> ED Treatment Course - LABORATORY CBC & Chemistry Diagram: 06/07/18 20:54 06/07/18 20:54 - Medications Given in the ED: ED Medications Discontinued Medications Generic Name Dose Route Start Last Admin Trade Name Teddyq PRN Reason Stop Dose Admin Ketorolac Tromethamine 30 mg 06/07/18 20:18 06/07/18 20:56 Toradol Injection - IVPUSH 06/07/18 20:19 30 mg ONCE ONE Administration Ondansetron HCl 4 mg 06/07/18 20:18 06/07/18 20:56 Zofran Injection IVPUSH 06/07/18 20:19 4 mg ONCE ONE Administration <Chaz Roberts - Last Filed: 06/08/18 00:00> - LABORATORY CBC & Chemistry Diagram: 06/07/18 20:54 06/07/18 20:54 - ADDITIONAL ORDERS Additional order review: Laboratory Results 06/07/18 06/07/18 21:40 20:54 Sodium 141 Potassium 4.4 Chloride 108 H Carbon Dioxide 23 D Anion Gap 10 BUN 13 Creatinine 1.2 Creat Clearance w eGFR > 60 Random Glucose 109 H Calcium 9.5 Total Bilirubin 0.3 AST 17 ALT 35 D Alkaline Phosphatase 83 Total Protein 7.4 Albumin 4.0 Lipase 391 Urine Color Ltyellow Urine Appearance Slcloudy Urine pH 6.0 Ur Specific Bryan 1.019 Urine Protein 1+ H Urine Glucose (UA) Negative Urine Ketones Negative Urine Blood 3+ H Urine Nitrite Negative Urine Bilirubin Negative Urine Urobilinogen Negative Ur Leukocyte Esterase Negative Urine WBC (Auto) 9 Urine RBC (Auto) 367 Ur Epithelial Cells Rare Hyaline Casts 2 Urine Mucus Rare 06/07/18 20:54 RBC 4.79 MCV 81.8 MCHC 33.3 RDW 13.6 MPV 7.0 L Neutrophils % 74.4 D Lymphocytes % 18.8 D Monocytes % 5.6 Eosinophils % 0.5 D Basophils % 0.7 - Medications Given in the ED: ED Medications Discontinued Medications Generic Name Dose Route Start Last Admin Trade Name Bryanna PRN Reason Stop Dose Admin Acetaminophen 1,000 mg 06/07/18 21:36 06/07/18 21:40 Ofirmev Injection - IVPB 06/07/18 21:37 1,000 mg ONCE ONE Administration Fentanyl 75 mcg 06/07/18 22:53 06/07/18 23:00 Sublimaze Injection - IVPUSH 06/07/18 22:54 75 mcg ONCE ONE Administration Sodium Chloride 1,000 mls @ 1,000 mls/hr 06/07/18 20:18 06/07/18 20:56 Normal Saline - IV 06/07/18 21:17 1,000 mls/hr ASDIR STA Administration Ketorolac Tromethamine 30 mg 06/07/18 20:18 06/07/18 20:56 Toradol Injection - IVPUSH 06/07/18 20:19 30 mg ONCE ONE Administration Ondansetron HCl 4 mg 06/07/18 20:18 06/07/18 20:56 Zofran Injection IVPUSH 06/07/18 20:19 4 mg ONCE ONE Administration Tamsulosin HCl 0.4 mg 06/07/18 22:59 06/07/18 23:15 Flomax - PO 06/07/18 23:00 0.4 mg ONCE ONE Administration <José Miguel Cole - Last Filed: 06/08/18 00:07> Medical Decision Making - Medical Decision Making 06/07/18 21:12 The patient is a 53M with a PMH of recurrent nephrolithiasis who presents to the ER with R flank pain. Concern for obstructing stone. Pending labs and imaging. 06/07/18 22:[address] in April 2018 shows 2 3mm stones in R tract. Pain did not improve w/ toradol. Giving IV acetaminophen. Bedside US reveals moderate hydronephrosis on the R side without presence of uretal jets. 06/08/18 00:00 Pt required fentanyl for pain control. Pt states he feels much better. Will d/c with urology and PCP f/u. <ArmandoChaz - Last Filed: 06/08/18 00:00> *DC/Admit/Observation/Transfer - Discharge Dispostion Decision to Admit order: No <Chaz Roberts - Last Filed: 06/08/18 00:00> <José Miguel Cole - Last Filed: 06/08/18 00:07> Diagnosis at time of Disposition: Flank pain, Nephrolithiasis - Discharge Dispostion Disposition: HOME Condition at time of disposition: Stable - Prescriptions Prescriptions: Oxycodone HCl/Acetaminophen [Percocet 10-325 mg Tablet] 1 each PO TID PRN #14 tablet MDD 3 tabs PRN Reason: Pain Tamsulosin HCl [Flomax] 0.4 mg PO DAILY #14 capsule - Referrals Referrals: Jose Maria Friedman MD [Staff Physician] - - Patient Instructions Printed Discharge Instructions: Kidney Stones -- Adult Additional Instructions: Please follow up with your primary care physician and urologist in 2-3 days. Please return to the ER if you have any signs or symptoms of chest pain, shortness of breath, uncontrollable fever, chills, nausea, vomiting, numbness, tingling, or weakness in any part of your body, changes in vision, or slurred speech. Please take your medications as prescribed. Please return to the ER if symptoms persist, worsen, or new symptoms arise.
[2018-06-07 21:24] LABS: ANION GAP 10 MMOL/L (8-16); BILIRUBIN,TOTAL 0.3 mg/dL (0.2-1.0); BLOOD UREA NITROGEN 13 mg/dL (7-18); CALCIUM 9.5 mg/dL (8.5-10.1); CHLORIDE 108 mmol/L (98-107); CO2 23 mmol/L (21-32); CREATININE 1.2 mg/dL (0.7-1.3); GLUCOSE,RANDOM 109 mg/dL (74-106); POTASSIUM 4.4 mmol/L (3.5-5.1); SGOT/AST 17 U/L (15-37); SGPT/ALT 35 U/L (12-78); SODIUM 141 mmol/L (136-145); TOT PROT 7.4 g/dl (6.4-8.2)
[2018-06-07 21:25] LABS: ALK PHOS 83 U/L (45-117); LIPASE 391 U/L (73-393)
[2018-06-07] MEDS ORDERED: ACETAMINOPHEN 1000 MG/100 ML VIAL (NON FORMULARY) IVPB ONE (21:36)
[2018-06-07] MEDS ORDERED: ACETAMINOPHEN INJECTION 100 ML IVPB ONE (21:39)
[2018-06-07 21:49] LABS: URINE APPEARANCE SLCLOUDY; URINE BILIRUBIN NEGATIVE (<2.0 mg/dL); URINE COLOR LTYELLOW; URINE GLUCOSE (UA) NEGATIVE (NEGATIVE); URINE KETONE NEGATIVE (NEGATIVE); URINE LEUK ESTERASE NEGATIVE (NEGATIVE); URINE NITRITE NEGATIVE (NEGATIVE); URINE UROBILINOGEN NEGATIVE mg/dL (0.2-1.0)
[2018-06-07 21:59] LABS: URINE PROTEIN 1+ (NEGATIVE)
[2018-06-07 22:00] LABS: EPI CELLS RARE /HPF (FEW); URINE HYALINE CAST 2 /lpf; URINE MUCUS RARE
--- NOTE | 2018-06-07 22:56 | PDOC ---
Attending Attestation - Resident Resident Name: Chaz Roberts - ED Attending Attestation I have performed the following: I have examined & evaluated the patient, The case was reviewed & discussed with the resident, I agree w/resident's findings & plan - HPI HPI: 06/07/18 22:53 53-year-old male with history of nephrolithiasis presents with acute onset of right flank pain radiating to the groin that began this evening, identical to past kidney stone pain. Associated with nausea and 2 episodes of vomiting, no fevers or chills. Patient had stents placed in the past, has since been removed. On review of prior imaging in April, had two 3 mm stones in the right kidney. - Physicial Exam PE: 06/07/18 22:54 Vital signs are within normal limits Initially writhing in pain, now more comfortable after Toradol and Tylenol Abdomen is soft/nontender/nondistended, mild to moderate right CVA tenderness exam is otherwise normal - Medical Decision Making 06/07/18 22:54 53-year-old male with presentation consistent with right renal colic, no other red flags or evidence of infection. Labs are within normal limits, baseline creatinine 1.2 Urinalysis with elevated red blood cells, no evidence of infection Pain control and disposition. Bedside ultrasound shows moderate right hydronephrosis. We'll defer further CAT scan imaging given recent findings of right-sided stones now presenting with right-sided pain, 3 mm in size should pass spontaneously. Has follow-up with Dr. Marrero of urology.
[2018-06-07] MEDS ORDERED: TAMSULOSIN HCL 0.4 MG CAP.ER.24H (FP) PO ONE (22:59)
[2018-06-07] MEDS ORDERED: TAMSULOSIN HCL 0.4 MG CAP.ER.24H (FP) ONE (23:31)
== END 2018-06-08 01:25 | disposition home or self-care (01) ==
LOC: JER 20:11
PROC: 3E033NZ Introduction of Analgesics, Hypnotics, Sedatives into Peripheral Vein, Percutaneous Approach (ICD-10-PCS; principal; 2018-06-07)
PROC: 3E033NZ Introduction of Analgesics, Hypnotics, Sedatives into Peripheral Vein, Percutaneous Approach (ICD-10-PCS; 2018-06-07)
PROC: 3E0333Z Introduction of Anti-inflammatory into Peripheral Vein, Percutaneous Approach (ICD-10-PCS; 2018-06-07)
PROC: 3E033GC Introduction of Other Therapeutic Substance into Peripheral Vein, Percutaneous Approach (ICD-10-PCS; 2018-06-07)
DX: N20.0 Calculus of kidney (principal); Z87.442 Personal history of urinary calculi; Z96.0 Presence of urogenital implants
CPT/HCPCS: 36415; 80053; 81003; 81015; 83690; 85025; 87086; 99282-25; J0131; J7030

== ENCOUNTER 2018-06-27 06:25 | Emergency (ER) | payer SELFPAY ==
[2018-06-27] MEDS ORDERED: KETOROLAC TROMETHAMINE 30 MG/1 ML VIAL ONE (06:49)
[2018-06-27] MEDS ORDERED: KETOROLAC TROMETHAMINE 30 MG/1 ML VIAL IM ONE (06:49)
[2018-06-27 06:52] VITALS: BMI 33.9
--- NOTE | 2018-06-27 06:52 | PDOC ---
Attending Attestation - Resident Resident Name: Gunnar Singletary - ED Attending Attestation I have performed the following: I have examined & evaluated the patient, The case was reviewed & discussed with the resident, I agree w/resident's findings & plan, Exceptions are as noted - HPI HPI: 53 yo M history kidney stones presents with R flank pain. He states he was recently found to have multiple stones (two 3mm stones as per last ED chart), passed one. He c/o nausea but no vomiting. No fever. Pain radiates to R groin. - Physicial Exam PE: GENERAL: Awake, alert, and fully oriented. Appears uncomfortable. HEAD: No signs of trauma EYES: PERRLA, EOMI, sclera anicteric, conjunctiva clear ENT: Auricles normal inspection, hearing grossly normal, nares patent, oropharynx clear without exudates. Moist mucosa NECK: Normal ROM, supple, no lymphadenopathy, JVD, or masses LUNGS: Breath sounds equal, clear to auscultation bilaterally. No wheezes, and no crackles HEART: Regular rate and rhythm, normal S1 and S2, no murmurs, rubs or gallops ABDOMEN: Soft, +R mid-abdominal, RLQ, and R CVA tenderness, normoactive bowel sounds. No guarding, no rebound. No masses EXTREMITIES: Normal range of motion, no edema. No clubbing or cyanosis. No cords, erythema, or tenderness NEUROLOGICAL: Cranial nerves II through XII grossly intact. Normal speech, normal gait SKIN: Warm, Dry, normal turgor, no rashes or lesions noted. - Medical Decision Making Based on prior history, will obtain ultrasound to assess for possible hydro, as patient has had complicated history with stones. Toradol, IVF, zofran. Morphine for breakthrough pain.
[2018-06-27] MEDS ORDERED: SODIUM CHLORIDE 0.9% 500 ML INFUS.BAG IV ONE (06:53)
[2018-06-27] MEDS ORDERED: ONDANSETRON 4 MG/2 ML VIAL ONE (06:56)
[2018-06-27] MEDS ORDERED: ONDANSETRON 4 MG/2 ML VIAL IVPUSH ONE (06:56)
--- NOTE | 2018-06-27 06:57 | PDOC ---
History of Present Illness - General Chief Complaint: Pain, Acute Stated Complaint: KIDNEY STONES Time Seen by Provider: 06/27/18 06:45 - History of Present Illness Initial Comments: 53 year old male with PMH of kidney stones, most recently on the of this month presenting with right flank pain and nausea consistent with his kidney stone pain. Patient states that he had three stones recently and passed one believing that he has two waiting to be passed. He has had nephrostomy tubes in the past as recent as April of this year. He stats that one stone was obstructing as well. Denies fevers, chills, chest pain, SOB, headache, or other symptoms. 06/27/18 06:52 Past History - Past Medical History Allergies/Adverse Reactions: Allergies Allergy/AdvReac Type Severity Reaction Status Date / Time Cat/Feline Product Allergy Verified 06/27/18 06:50 Derivatives No Known Drug Allergies Allergy Verified 06/27/18 06:50 Home Medications: Ambulatory Orders Tamsulosin HCl [Flomax -] 0.4 mg PO DAILY@0830 06/10/17 Oxycodone HCl/Acetaminophen [Percocet 10-325 mg Tablet] 1 each PO TID PRN #14 tablet MDD 3 tabs 06/08/18 COPD: No DVT: No Disorders: Yes (H/O KIDNEY STONES) Kidney Stones: Yes (MULTIPLE LITHOTRIPSY) - Surgical History Orthopedic Surgery: Yes - Immunization History Td Vaccination: Yes TDAP Vaccination: No Immunization Up to Date: No - Suicide/Smoking/Psychosocial Hx Smoking Status: Yes Smoking History: Never smoked Years of Tobacco Use: 20 Have you smoked in the past 12 months: No Number of Cigarettes Smoked Daily: 0 If you are a former smoker, when did you quit?: quit 7 years ago (2009) Cigars Per Day: 0 Hx Alcohol Use: No Drug/Substance Use Hx: No Substance Use Type: None Hx Substance Use Treatment: No Review of Systems - Review of Systems Constitutional: No: Chills, Diaphoresis, Fever HEENTM: No: Tearing, Recent change in vision, Double Vision Respiratory: No: Cough, Orthopnea, Shortness of Breath Cardiac (ROS): No: Chest Pain, Edema, Irregular Heart Rate, Lightheadedness, Palpitations ABD/GI: Yes: Nausea. No: Diarrhea, Vomiting : Yes: Flank Pain. No: Burning, Dysuria, Discharge, Hematuria Musculoskeletal: No: Joint Swelling, Muscle Pain, Muscle Weakness Integumentary: No: Bruising, Erythema, Flushing, Lesions Neurological: No: Numbness, Seizure, Weakness Psychiatric: No: Anxiety, Depression Endocrine: No: Intolerance to Heat, Increased Thirst, Increased Urine Hematologic/Lymphatic: No: Anemia, Blood Clots, Easy Bleeding *Physical Exam - Physical Exam General Appearance: Yes: Nourished, Appropriately Dressed, Apparent Distress, Moderate Distress HEENT: positive: EOMI, CARY, Normal ENT Inspection, Normal Voice Neck: positive: Trachea midline, Normal Thyroid, Supple. negative: Tender, Rigid Respiratory/Chest: positive: Lungs Clear, Normal Breath Sounds. negative: Chest Tender, Respiratory Distress Cardiovascular: positive: Regular Rhythm, Regular Rate Gastrointestinal/Abdominal: positive: Normal Bowel Sounds, Flat, Soft. negative : Tender Lymphatic: negative: Adenopathy, Tenderness Musculoskeletal: positive: Normal Inspection. negative: Decreased Range of Motion Extremity: positive: Normal Capillary Refill, Normal Inspection, Normal Range of Motion. negative: Tender Integumentary: positive: Normal Color, Dry, Warm Neurologic: positive: Fully Oriented, Alert, Normal Mood/Affect, Normal Response , Motor Strength 5/5 ED Treatment Course - RADIOLOGY Radiology Studies Ordered: Category Date Time Status KIDNEY / RENAL US [US] Stat Ultrasound 06/27/18 06:51 Ordered Medical Decision Making - Medical Decision Making 53 year old male with history of obstructing nephrolithiasis with recent stones noted in the beginning of this month presenting with right flank pain and vomiting for the past day. Highly suspicious for renal colic. Patient signed out to Dr. Calles pending renal ultrasound. 06/27/18 06:58 *DC/Admit/Observation/Transfer Diagnosis at time of Disposition: Nephrolithiasis - Referrals - Patient Instructions - Post Discharge Activity
[2018-06-27 07:01] LABS: BASO % 1.2 % (0-2.0); EOS % 3.4 % (0-4.5); HEMATOCRIT 40.3 % (35.4-49); HEMOGLOBIN 13.5 GM/dL (11.7-16.9); MCH 27.4 pg (25.7-33.7); MCHC 33.5 g/dl (32.0-35.9); MEAN CELL VOLUME 81.7 fl (80-96); MEAN PLT VOLUME 7.4 fl (7.5-11.1); MONO % 9.9 % (3.8-10.2); NEUT % 44.5 % (42.8-82.8); PLATELET COUNT 239 K/MM3 (134-434); RBC 4.93 M/mm3 (4.00-5.60); RDW 13.4 % (11.9-15.9); WHITE BLOOD COUNT 4.6 K/mm3 (4.0-10.0)
[2018-06-27] MEDS ORDERED: morphine CARPU-JECT 4 MG/1 ML DISP.SYRIN IVPUSH ONE (07:10)
[2018-06-27] MEDS ORDERED: morphine SULFATE 4 MG/ML VIAL ONE (07:23)
[2018-06-27 07:27] LABS: ALBUMIN 3.9 g/dl (3.4-5.0); ALK PHOS 94 U/L (45-117); ANION GAP 5 MMOL/L (8-16); BILIRUBIN,TOTAL 0.2 mg/dL (0.2-1); BLOOD UREA NITROGEN 10 mg/dL (7-18); CALCIUM 8.7 mg/dL (8.5-10.1); CHLORIDE 107 mmol/L (98-107); CO2 27 mmol/L (21-32); CREATININE 1.1 mg/dL (0.55-1.3); GLUCOSE,RANDOM 115 mg/dL (74-106); SGOT/AST 19 U/L (15-37); SGPT/ALT 33 U/L (13-61); SODIUM 140 mmol/L (136-145); TOT PROT 7.1 g/dl (6.4-8.2)
--- NOTE | 2018-06-27 07:41 | PDOC ---
*Physical Exam - Vital Signs Last Vital Signs Temp Pulse Resp BP Pulse Ox 97.5 F L 53 L 22 H 164/98 100 06/27/18 06:30 06/27/18 06:30 06/27/18 06:30 06/27/18 06:30 06/27/18 06:30 - Physical Exam Comments: 06/27/18 07:38 Constitutional: Well-nourished, Well-developed, appearing stated age. Appears in pain. HEENT: head is normocephalic, atraumatic. EOMI. PERRLA. Neck: supple. Full ROM. Heart: regular rhythm. no murmurs, rubs or gallops. Lungs: clear to auscultation bilaterally. no crackles, rhonchi or wheezing. no stridor. Abdomen: soft. mild tenderness to palpation of RLQ. normal bowel sounds. no rebound, guarding, masses. no pulsatile mass visualized. Extremities: Peripheral pulses intact and equal. No lower extremity edema. Neurological: CN 2-12 grossly intact. Moves all four extremities. Psych: awake, alert, oriented x3. Follows commands. Answers questions appropriately. ED Treatment Course - LABORATORY CBC & Chemistry Diagram: 06/27/18 06:53 06/27/18 06:53 - ADDITIONAL ORDERS Additional order review: Laboratory Results 06/27/18 06:53 Sodium 140 Potassium 4.0 Chloride 107 Carbon Dioxide 27 Anion Gap 5 L BUN 10 Creatinine 1.1 Creat Clearance w eGFR > 60 Random Glucose 115 H Calcium 8.7 Total Bilirubin 0.2 AST 19 ALT 33 Alkaline Phosphatase 94 Total Protein 7.1 Albumin 3.9 06/27/18 06:53 RBC 4.93 MCV 81.7 MCHC 33.5 RDW 13.4 MPV 7.4 L Neutrophils % 44.5 D Lymphocytes % 41.0 H D Monocytes % 9.9 Eosinophils % 3.4 D Basophils % 1.2 - Medications Given in the ED: ED Medications Discontinued Medications Generic Name Dose Route Start Last Admin Trade Name Freq PRN Reason Stop Dose Admin Ketorolac Tromethamine 30 mg 06/27/18 06:49 06/27/18 06:55 Toradol Injection - IM 06/27/18 06:50 30 mg ONCE ONE Administration Morphine Sulfate 4 mg 06/27/18 07:10 06/27/18 07:26 Morphine Injection - IVPUSH 06/27/18 07:11 4 mg ONCE ONE Administration Ondansetron HCl 4 mg 06/27/18 06:56 06/27/18 06:59 Zofran Injection IVPUSH 06/27/18 06:57 4 mg ONCE ONE Administration Sodium Chloride 1,000 ml 06/27/18 06:53 06/27/18 06:55 Normal Saline - IV 06/27/18 06:54 1,000 ml ONCE ONE Administration Medical Decision Making - Medical Decision Making 06/27/18 07:39 53 year old male with PMH multiple kidney stones presenting to ED for right flank pain since this morning. His pain was a 10/10 on presentation. He describes his pain as radiating to his RLQ, low back and right groin, feeling similar to prior kidney stones. His symptoms are associated with nausea. Pt denies vomiting, fever, chills, diarrhea, chest pain, shortness of breath, hematuria, blood in stool. PCP - none Hospital course history: 05/27/17 - Nephrostomy tube placed for right sided stone 06/17/17 - stent removed 03/30/18 CT report - One 4.5x4 mm obstructing stone in the right UPJ with mild hydro. Two 4.5 mm non-obstructing stones in right infrarenal pole. 04/12/18 CT report - 3-4 mm obstructing stone in right UPJ, accompanied by small nonobstructing stones in the right lower renal pole. 06/07/18 - Seen in ED for similar symptoms, renal US displayed hydronephrosis. Initial Vital Signs Temp Pulse Resp BP Pulse Ox 97.5 F L 53 L 22 H 164/98 100 06/27/18 06:30 06/27/18 06:30 06/27/18 06:30 06/27/18 06:30 06/27/18 06:30 Afebrile. Bradycardic, asymptomatic, similar to prior recorded HR. Tachypneic, likely secondary to pain. Hypertensive, likely secondary to pain. No hypoxia. Pt was given Toradol IM 30 mg without relief of pain. Pt was then given Morphine 4 mg. Pt was given Zofran 4 mg for nausea. Concern for but not limited to: obstructing kidney stone, UTI, pyelo, AAA. - Pending UA/UC, renal US, CBC, CMP. Will consult urology. 06/27/18 07:57 CBC WBC 4.6 K/mm3 (4.0-10.0) 06/27/18 06:53 RBC 4.93 M/mm3 (4.00-5.60) 06/27/18 06:53 Hgb 13.5 GM/dL (11.7-16.9) 06/27/18 06:53 Hct 40.3 % (35.4-49) 06/27/18 06:53 MCV 81.7 fl (80-96) 06/27/18 06:53 MCH 27.4 pg (25.7-33.7) 06/27/18 06:53 MCHC 33.5 g/dl (32.0-35.9) 06/27/18 06:53 RDW 13.4 % (11.9-15.9) 06/27/18 06:53 Plt Count 239 K/MM3 (134-434) 06/27/18 06:53 MPV 7.4 fl (7.5-11.1) L 06/27/18 06:53 Absolute Neuts (auto) 2.0 K/mm3 (1.5-8.0) 06/27/18 06:53 Neutrophils % 44.5 % (42.8-82.8) D 06/27/18 06:53 Lymphocytes % 41.0 % (8-40) H D 06/27/18 06:53 Monocytes % 9.9 % (3.8-10.2) 06/27/18 06:53 Eosinophils % 3.4 % (0-4.5) D 06/27/18 06:53 Basophils % 1.2 % (0-2.0) 06/27/18 06:53 Nucleated RBC % 0 % (0-0) 06/27/18 06:53 No leukocytosis. No anemia. CMP Sodium 140 mmol/L (136-145) 06/27/18 06:53 Potassium 4.0 mmol/L (3.5-5.1) 06/27/18 06:53 Chloride 107 mmol/L (98-107) 06/27/18 06:53 Carbon Dioxide 27 mmol/L (21-32) 06/27/18 06:53 Anion Gap 5 MMOL/L (8-16) L 06/27/18 06:53 BUN 10 mg/dL (7-18) 06/27/18 06:53 Creatinine 1.1 mg/dL (0.55-1.3) 06/27/18 06:53 Creat Clearance w eGFR > 60 (>60) 06/27/18 06:53 Random Glucose 115 mg/dL (74-106) H 06/27/18 06:53 Calcium 8.7 mg/dL (8.5-10.1) 06/27/18 06:53 Total Bilirubin 0.2 mg/dL (0.2-1) 06/27/18 06:53 AST 19 U/L (15-37) 06/27/18 06:53 ALT 33 U/L (13-61) 06/27/18 06:53 Alkaline Phosphatase 94 U/L (45-117) 06/27/18 06:53 Total Protein 7.1 g/dl (6.4-8.2) 06/27/18 06:53 Albumin 3.9 g/dl (3.4-5.0) 06/27/18 06:53 Cr 1.1, similar to baseline. Urine Test Results Urine Color Yellow 06/27/18 07:36 Urine Appearance Clear 06/27/18 07:36 Urine pH 6.0 (5.0-8.0) 06/27/18 07:36 Ur Specific [place] 1.014 (1.001-1.035) 06/27/18 07:36 Urine Protein 1+ (NEGATIVE) H 06/27/18 07:36 Urine Glucose (UA) Negative (NEGATIVE) 06/27/18 07:36 Urine Ketones Negative (NEGATIVE) 06/27/18 07:36 Urine Blood 3+ (NEGATIVE) H 06/27/18 07:36 Urine Nitrite Negative (NEGATIVE) 06/27/18 07:36 Urine Bilirubin Negative (<2.0 mg/dL) 06/27/18 07:36 Ur Leukocyte Esterase Negative (NEGATIVE) 06/27/18 07:36 3+ blood, 1+ protein, likely due to kidney stone. No evidence of urinary tract infection at this time. 06/27/18 09:18 Pt reassessed, states pain is improving, currently 4/10, nausea subsided. -Pending US report 06/27/18 10:12 Pt reassessed, states pain is improving, currently 2/10. Pt states his pain is usually relieved by 2 percocet, pt states he is taking the bus. Percocet ordered. 06/27/18 10:20 I spoke with [facility], who states that they accept uninsured patients, with a minimum copay of $50, and that they can provide urology follow up for the patient. 06/27/18 10:41 US report: no evidence of nephrolithiais, hydronephrosis, or obstructive uropathy. At this point the patient is clinically stable, pain has improved, and there is no evidence of obstructive uropathy. Patient is able to followup outpatient. I spoke with the patient about the results. I discussed the importance of following up in the clinic, with which he states he understands. Pending appointment for PCP follow up. Pt will be called within 1 business day with appointment confirmation. Pt will be discharged with strict return precautions, follow up instructions, prescription for percocet and copy of the US report. *DC/Admit/Observation/Transfer Diagnosis at time of Disposition: Nephrolithiasis - Discharge Dispostion Disposition: HOME Condition at time of disposition: Stable Decision to Admit order: No - Prescriptions Prescriptions: Oxycodone HCl/Acetaminophen [Percocet 10-325 mg Tablet] 1 each PO TID PRN #10 tablet MDD 3 tabs PRN Reason: Pain Tamsulosin HCl [Flomax -] 0.4 mg PO DAILY #5 cap.er.24h - Referrals Referrals: Jose Maria Friedman MD [Staff Physician] - - Patient Instructions Printed Discharge Instructions: DI for Kidney Stones Additional Instructions: You were seen today for flank pain and nausea. You were given intramuscular Toradol, intravenous morphine, and oral percocet. Do not drive today or any day you take Percocet. Your urine analysis revealed evidence of a kidney stone. There was no evidence of a urinary tract infection. Your blood work was normal. Your kidney function was normal. Your ultrasound of your kidneys revealed no evidence of fluid backup to your kidneys. A copy of the report has been included in your discharge paperwork. A prescription for Percocet has been sent to your pharmacy. supervisor in circuit testing the prescription today. Take as instructed. Follow up with the primary care provider that referred to you here. Call their office and make an appointment within the next 3 days. Do not miss this appointment. Your care is not complete until you follow up. I called their office today and they stated they take uninsured patients, with a minimum payment of $50, and can provide you with a urology referral. Return to the Emergency Department for increasing pain, blood seen in urine, fever, chills, vomiting, chest pain, shortness of breath, passing out or any other new, worsening or concerning symptoms. - Post Discharge Activity Forms/Work/School Notes: Back to Work
[2018-06-27 07:50] LABS: URINE APPEARANCE CLEAR; URINE BILIRUBIN NEGATIVE (<2.0 mg/dL); URINE COLOR YELLOW; URINE GLUCOSE (UA) NEGATIVE (NEGATIVE); URINE KETONE NEGATIVE (NEGATIVE); URINE LEUK ESTERASE NEGATIVE (NEGATIVE); URINE NITRITE NEGATIVE (NEGATIVE); URINE UROBILINOGEN NEGATIVE mg/dL (0.2-1.0)
[2018-06-27 07:55] LABS: URINE PROTEIN 1+ (NEGATIVE)
[2018-06-27 07:56] LABS: EPI CELLS RARE /HPF (FEW); URINE MUCUS RARE
[2018-06-27 08:58] VITALS: BP 122/87; PULSE 56; TEMP 97.9
== END 2018-06-27 11:46 | disposition home or self-care (01) ==
LOC: JER 06:25
DX: N20.0 Calculus of kidney (principal); Z87.442 Personal history of urinary calculi
CPT/HCPCS: 36415; 76775-TC; 80053; 81003; 81015; 85025; 99285-25

== ENCOUNTER 2019-03-09 14:06 | Emergency (ER) | payer SELFPAY | END 2019-03-09 18:27 | disposition home or self-care (01) | LOC: JER 14:06 ==

== ENCOUNTER 2019-04-19 16:55 | Emergency (ER) | payer SELFPAY ==
[2019-04-19 17:01] VITALS: BP 126/87; PULSE 83; TEMP 99.1; BMI 38.0
--- NOTE | 2019-04-19 17:01 | PDOC ---
Rapid Medical Evaluation Chief Complaint: Respiratory Time Seen by Provider: 04/19/19 16:58 Medical Evaluation: Allergies Allergy/AdvReac Type Severity Reaction Status Date / Time Cat/Feline Product Allergy Verified 06/27/18 06:50 Derivatives No Known Drug Allergies Allergy Verified 06/27/18 06:50 04/19/19 16:59 I have performed a brief in-person evaluation of this patient. The patient presents with a chief complaint of: severe back pain since 2 days, fevers / chills - kidney stones right side Pertinent physical exam findings: no reproduced pain along spine/ walks slowly due to pain I have ordered the following: UA/ Urine Cx The patient will proceed to the ED for further evaluation. Discharge Disposition - Diagnosis Flank pain - Referrals - Patient Instructions - Post Discharge Activity
--- NOTE | 2019-04-19 19:18 | PDOC ---
History of Present Illness - General Chief Complaint: Respiratory Stated Complaint: FEVER LOWER BACK PAIN Time Seen by Provider: 04/19/19 16:58 History Source: Patient Exam Limitations: No Limitations - History of Present Illness Initial Comments: 04/19/19 19:09 54yo never smoker man with PMH kidney stones presenting with lower back pain radiating to the pelvis for 24 hours. Endorses fever and chills starting at 9PM last night. The pain comes in waves, 4-5 pulses at a time, has not tried any medication, position independent pain. Denies trauma, weight loss, neuro symptoms, steroid use, history of cancer, IVDU. Red flag - age >50. Denies UTI symptoms. Prior CT 03/09/19 demonstrated stones and hydro. Allergies: Cat, NKDA PSH: achilles tendon repair Past History - Travel Traveled outside of the country in the last 30 days: No Close contact w/someone who was outside of country & ill: No - Past Medical History Allergies/Adverse Reactions: Allergies Allergy/AdvReac Type Severity Reaction Status Date / Time Cat/Feline Product Allergy Verified 04/19/19 17:01 Derivatives No Known Drug Allergies Allergy Verified 04/19/19 17:01 Home Medications: Ambulatory Orders Oxycodone HCl/Acetaminophen [Percocet 5-325 mg Tablet] 1 - 2 tab PO Q6H PRN #12 tab MDD 4 03/09/19 Tamsulosin HCl [Flomax] 0.4 mg PO DAILY #7 cap.er.24h 03/09/19 COPD: No DVT: No Disorders: Yes (H/O KIDNEY STONES) Kidney Stones: Yes (MULTIPLE LITHOTRIPSY) - Surgical History Orthopedic Surgery: Yes - Immunization History Td Vaccination: Yes TDAP Vaccination: No Immunization Up to Date: No - Suicide/Smoking/Psychosocial Hx Smoking Status: Yes Smoking History: Never smoked Years of Tobacco Use: 20 Have you smoked in the past 12 months: No Number of Cigarettes Smoked Daily: 0 If you are a former smoker, when did you quit?: quit 7 years ago (2009) Cigars Per Day: 0 Information on smoking cessation initiated: No Hx Alcohol Use: No Drug/Substance Use Hx: No Substance Use Type: None Hx Substance Use Treatment: No Review of Systems - Review of Systems Able to Perform ROS?: Yes Is the patient limited Amharic proficient: No Constitutional: Yes: Chills, Fever. No: Diaphoresis, Weakness HEENTM: No: Symptoms Reported Respiratory: No: Symptoms reported Cardiac (ROS): No: Symptoms Reported ABD/GI: No: Symptoms Reported : No: Symptoms Reported, Burning, Dysuria, Discharge, Frequency, Hematuria Musculoskeletal: Yes: Symptoms Reported, See HPI, Back Pain Integumentary: No: Symptoms Reported Neurological: No: Symptoms reported All Other Systems: Reviewed and Negative *Physical Exam - Vital Signs Last Vital Signs Temp Pulse Resp BP Pulse Ox 99.1 F 83 19 126/87 100 04/19/19 16:59 04/19/19 16:59 04/19/19 16:59 04/19/19 16:59 04/19/19 16:59 - Physical Exam Comments: 04/19/19 19:59 Vitals Reviewed, stable, afebrile GEN: WDWN man, no acute distress, sitting in a chair CV: RRR, nl s1s2, no murmurs appreciated Pulm: CTABL, normal WOB, no distress Abd: soft, nontender, nondistended Back: CVA tenderness R side, no mindline or paraspinal tenderness overlying region of pain (points to lumbar spine) Pulses: 2+ radial Ext: WWP, no clubbing cyanosis or edema Neuro: alert and oriented ED Treatment Course - LABORATORY CBC & Chemistry Diagram: 04/19/19 20:03 04/19/19 20:03 Medical Decision Making - Medical Decision Making 04/19/19 20:01 54yo never smoker man with PMH kidney stones presenting with lower back pain radiating to the pelvis for 24 hours. History concerning for fever / chills, recent CT with stones and hydro. Physical exam remarkable for CVA tenderness on the R. Together, concerning for nephrolithiasis vs pyelo vs MSK vs less likely AAA given recent imaging results. -UA, UCx -CBC, CMP -Toradol, acetaminophen -IVF 1L NS -Reassess 04/19/19 20:27 -UA with blood, no signs of infection -No leukocytosis -CTAP pending 04/19/19 20:47 -CMP wnl -Pt responding well to pain regimen and IVF -CTAP pending *DC/Admit/Observation/Transfer Diagnosis at time of Disposition: Flank pain, Renal colic on right side - Discharge Dispostion Condition at time of disposition: Improved Decision to Admit order: No - Referrals - Patient Instructions Printed Discharge Instructions: Kidney Stones -- Adult - Post Discharge Activity
[2019-04-19] MEDS ORDERED: ACETAMINOPHEN 1000 MG/100 ML VIAL (NON FORMULARY) IVPB ONE (19:25)
[2019-04-19] MEDS ORDERED: KETOROLAC TROMETHAMINE 30 MG/1 ML VIAL IVPUSH ONE (19:46)
[2019-04-19] MEDS ORDERED: SODIUM CHLORIDE 1,000 ML IV STA (19:48)
[2019-04-19] MEDS ORDERED: ACETAMINOPHEN INJECTION 100 ML IVPB ONE (19:54)
--- NOTE | 2019-04-19 19:58 | PDOC ---
Documentation entered by Polo Bennett SCRIBE, acting as scribe for Kelli Eden DO. Kelli Eden DO: This documentation has been prepared by the Donald brown Joel, SCRIBE, under my direction and personally reviewed by me in its entirety. I confirm that the documentation accurately reflects all work, treatment, procedures, and medical decision making performed by me. Attending Attestation - Resident Resident Name: DemetriusJabari - ED Attending Attestation I have performed the following: I have examined & evaluated the patient, The case was reviewed & discussed with the resident, I agree w/resident's findings & plan, Exceptions are as noted - HPI HPI: 04/19/19 19:34 The patient is a 54 year old male with a significant PMH of kidney stones (s/p multiple lithotripsy) who presents to the emergency department for evaluation of lower back pain and fever since last night. The patient states he developed fever with associated chills at about 9pm yesterday and subsequently mid lower back pain with bilateral radiation forward to his pelvic area at about 12am. The patient denies chest pain, shortness of breath, headache and dizziness. Denies nausea, vomit, diarrhea and constipation. Denies dysuria, frequency, urgency and hematuria. Allergies: NKDA Past surgical history: Achilles repair. Social history: Former smoker. No reported alcohol or drug use. - Physicial Exam PE: 04/19/19 19:48 GENERAL: Awake, alert, and fully oriented, in no acute distress HEAD: No signs of trauma EYES: PERRLA, EOMI, sclera anicteric, conjunctiva clear ENT: Auricles normal inspection, hearing grossly normal, nares patent, oropharynx clear without exudates. Moist mucosa NECK: Normal ROM, supple, no lymphadenopathy, JVD, or masses LUNGS: Breath sounds equal, clear to auscultation bilaterally. No wheezes, and no crackles HEART: Regular rate and rhythm, normal S1 and S2, no murmurs, rubs or gallops ABDOMEN: Soft, nontender, normoactive bowel sounds. No guarding, no rebound. No masses BACK: (+) Right CVA tenderness. No midline tenderness. EXTREMITIES: Normal range of motion, no edema. No clubbing or cyanosis. No cords, erythema, or tenderness NEUROLOGICAL: Cranial nerves II through XII grossly intact. Normal speech. SKIN: Warm, Dry, normal turgor, no rashes or lesions noted. - Medical Decision Making 04/19/19 19:57 I, Dr. Kelli Eden, DO, attest that this document has been prepared under my direction and personally reviewed by me in its entirety. I further attest, that it accurately reflects all work, treatment, procedures and medical decision -making performed by me. 04/19/19 19:57 a/p: 54yo male with hx of renal colic and stones with low back pain that radiates to the front and subjective fever since last night -pt with colicky pain -no midline ttp, no reproducible vertebral ttp -no signs of cuade equina -R cva ttp -concern for infected stone vs hydro vs uti -will send labs, ct abd/pelvis -will give toradol for pain -will monitor and reassess 04/19/19 22:19 no acute findings on ct 04/19/19 22:19 labs reviewed ua reviewed no acute uti findings blood present 04/19/19 22:19 pt stable for dc to home
[2019-04-19 20:06] LABS: EPI CELLS 2.5 /HPF (0-5/HPF); HYALINE CASTS 3 /lpf (0-8); PH,URINE 5.5 (5.0-8.0); URINE APPEARANCE CLEAR; URINE BACTERIA 21.7 /hpf (NEGATIVE); URINE BILIRUBIN NEGATIVE (NEGATIVE); URINE COLOR YELLOW; URINE GLUCOSE (UA) NEGATIVE (NEGATIVE); URINE KETONE NEGATIVE (NEGATIVE); URINE LEUK ESTERASE NEGATIVE (NEGATIVE); URINE NITRITE NEGATIVE (NEGATIVE); URINE PROTEIN NEGATIVE (NEGATIVE); URINE RBC 35 /hpf (0-4); URINE WBC 2 /hpf (0-5)
[2019-04-19 20:19] LABS: BASO % 0.4 % (0-2.0); EOS % 0.9 % (0-4.5); HEMATOCRIT 42.6 % (35.4-49); HEMOGLOBIN 14.2 GM/dL (11.7-16.9); LYMPH % 18.2 % (8-40); MCH 27.4 pg (25.7-33.7); MCHC 33.2 g/dl (32.0-35.9); MEAN CELL VOLUME 82.3 fl (80-96); MEAN PLT VOLUME 7.1 fl (7.5-11.1); MONO % 11.6 % (3.8-10.2); NEUT % 68.9 % (42.8-82.8); PLATELET COUNT 251 K/MM3 (134-434); RBC 5.18 M/mm3 (4.00-5.60); RDW 13.4 % (11.9-15.9)
[2019-04-19 20:44] LABS: ALBUMIN 4.1 g/dl (3.4-5.0); BILIRUBIN,TOTAL 0.4 mg/dL (0.2-1); BLOOD UREA NITROGEN 10.1 mg/dL (7-18); CALCIUM 8.8 mg/dL (8.5-10.1); CREATININE 1.1 mg/dL (0.55-1.3); TOT PROT 7.6 g/dl (6.4-8.2)
[2019-04-19 20:45] LABS: POTASSIUM 4.4 mmol/L (3.5-5.1)
[2019-04-19] MEDS ORDERED: KETOROLAC TROMETHAMINE 30 MG/1 ML VIAL ONE (20:46)
--- NOTE | 2019-04-19 22:41 | PDOC ---
*Physical Exam - Vital Signs Last Vital Signs Temp Pulse Resp BP Pulse Ox 99.1 F 83 19 126/87 100 04/19/19 16:59 04/19/19 16:59 04/19/19 16:59 04/19/19 16:59 04/19/19 16:59 - Physical Exam Comments: 04/19/19 23:49 General Appearance: Nourished. No Apparent Distress HEENT: No Pharyngeal Erythema, Tonsillar Exudate, Tonsillar Erythema Neck: No Cervical Lymphadenopathy Respiratory/Chest: Lungs Clear, Normal Breath Sounds. No Crackles, Rales, Rhonchi, Wheezing Cardiovascular: Regular Rhythm, Regular Rate. No Murmur, Gallops, Rubs Gastrointestinal/Abdominal: Normal Bowel Sounds, Soft. No Guarding, Rebound, Tenderness Musculoskeletal: No CVA Tenderness Extremity: Normal Capillary Refill Integumentary: Normal Color, Dry, Warm Neurologic: Fully Oriented, Alert, Normal Mood/Affect, Normal Response, ED Treatment Course - LABORATORY CBC & Chemistry Diagram: 04/19/19 20:03 04/19/19 20:03 - ADDITIONAL ORDERS Additional order review: Laboratory Results 04/19/19 04/19/19 20:03 19:45 Sodium 138 Potassium 4.4 Chloride 104 Carbon Dioxide 30 Anion Gap 4 L BUN 10.1 Creatinine 1.1 Est GFR (CKD-EPI)AfAm 88.98 Est GFR (CKD-EPI)NonAf 76.77 Random Glucose 109 H Calcium 8.8 Total Bilirubin 0.4 AST 16 ALT 32 Alkaline Phosphatase 112 Total Protein 7.6 Albumin 4.1 Urine Color Yellow Urine Appearance Clear Urine pH 5.5 Ur Specific [place] 1.024 Urine Protein Negative Urine Glucose (UA) Negative Urine Ketones Negative Urine Blood 2+ H Urine Nitrite Negative Urine Bilirubin Negative Urine Urobilinogen 1.0 Ur Leukocyte Esterase Negative Urine WBC (Auto) 2 Urine RBC (Auto) 35 Urine Casts (Auto) 3 U Epithel Cells (Auto) 2.5 Urine Crystals (Auto) None Urine Bacteria (Auto) 21.7 04/19/19 20:03 RBC 5.18 MCV 82.3 MCHC 33.2 RDW 13.4 MPV 7.1 L Neutrophils % 68.9 D Lymphocytes % 18.2 D Monocytes % 11.6 H Eosinophils % 0.9 Basophils % 0.4 - Medications Given in the ED: ED Medications Discontinued Medications Generic Name Dose Route Start Last Admin Trade Name Freq PRN Reason Stop Dose Admin Acetaminophen 1,000 mg 04/19/19 19:25 04/19/19 19:44 Ofirmev Injection - IVPB 04/19/19 19:26 1,000 mg ONCE ONE Administration Sodium Chloride 1,000 mls @ 1,000 mls/hr 04/19/19 19:48 04/19/19 20:59 Normal Saline - IV 04/19/19 20:47 1,000 mls/hr ASDIR STA Administration Ketorolac Tromethamine 30 mg 04/19/19 19:46 04/19/19 20:59 Toradol Injection - IVPUSH 04/19/19 19:47 30 mg ONCE ONE Administration Medical Decision Making - Medical Decision Making 04/19/19 23:50 CBC, cmp are unremarkable. UA demonstrates RBC in the urine. Abdomen pelvis CT demonstrated 2 3-4mm right sided kidney stones in the renal pole as read by our radiologist without evidence of obstruction or pyelonephritis. The patient was reassessed and reports improvement in their symptoms. We are comfortable discharging the patient home in stable condition on flomax. Patient and family made aware of impression and plan, return precautions discussed including but not limited to worsening pain or symptoms, fevers, or signs of infection, chest pain, respiratory distress, inability to tolerate oral intake, dehydration, syncope, or neurologic changes. The patient is to follow up with PMD and specialist as recommended within 2-3 days, follow up information provided and the patient will call for an appointment. The patient is to take medications as instructed for duration of time and continue with supportive care, avoid triggers and precipitants. Patient is safe for outpatient follow-up. *DC/Admit/Observation/Transfer Diagnosis at time of Disposition: Flank pain, Renal colic on right side - Discharge Dispostion Disposition: HOME Condition at time of disposition: Improved - Prescriptions Prescriptions: Tamsulosin HCl [Flomax] 0.4 mg PO DAILY #7 cap.er.24h - Referrals Referrals: Mateus Villarreal MD [Staff Physician] - - Patient Instructions Printed Discharge Instructions: DI for Kidney Stones Additional Instructions: 1) Please follow-up with your primary care doctor in the next 2-3 days. Please call tomorrow to schedule a follow up appointment. If you cannot follow up with your doctor within 1 week please return to the Emergency Department for any urgent issues. 2) Your laboratory results were normal here in the ER. Your CT scan shows that you have two 3-4mm kidney stones. You are to follow up with our urologist Dr. Villarreal to discuss your ER visit and further management of your symptoms. 3) If you have any worsening of symptoms or any other concerns please return to the ER immediately. Return if worsening symptoms including fevers, headache, vomiting, visual or hearing disturbances, abdominal pain, chest pain, shortness of breath, syncope, dehydration, inability to take things by mouth/vomiting, altered mental status, or worsening concerning symptoms. 4) Please continue taking your home medications as directed. Your medications on discharge include Flomax. Side effects may include upset stomach, abdominal pain, vomiting, or diarrhea. Do not drink alcohol with your medications. - Post Discharge Activity
== END 2019-04-19 23:14 | disposition home or self-care (01) ==
LOC: JER 16:55
PROC: 3E0337Z Introduction of Electrolytic and Water Balance Substance into Peripheral Vein, Percutaneous Approach (ICD-10-PCS; principal; 2019-04-19)
PROC: 3E033NZ Introduction of Analgesics, Hypnotics, Sedatives into Peripheral Vein, Percutaneous Approach (ICD-10-PCS; 2019-04-19)
PROC: 3E0333Z Introduction of Anti-inflammatory into Peripheral Vein, Percutaneous Approach (ICD-10-PCS; 2019-04-19)
DX: N20.0 Calculus of kidney (principal); Z87.442 Personal history of urinary calculi
CPT/HCPCS: 36415; 74176-TC; 80053; 81003; 85025; 87086; 99282-25; J0131; J7030

== ENCOUNTER 2019-10-08 12:15 | Emergency (ER) | payer SELFPAY ==
[2019-10-08 12:33] VITALS: BP 130/79; PULSE 63; TEMP 98; BMI 37.4
[2019-10-08] MEDS ORDERED: KETOROLAC TROMETHAMINE 30 MG/1 ML VIAL ONE (13:05)
[2019-10-08] MEDS ORDERED: ONDANSETRON 4 MG/2 ML VIAL ONE (13:05)
[2019-10-08] MEDS ORDERED: SODIUM CHLORIDE 1,000 ML IV STA (13:05)
[2019-10-08] MEDS ORDERED: ONDANSETRON 4 MG/2 ML VIAL IVPUSH ONE (13:05)
[2019-10-08] MEDS ORDERED: KETOROLAC TROMETHAMINE 30 MG/1 ML VIAL IVPUSH ONE (13:05)
[2019-10-08 13:23] LABS: BASO % 0.5 % (0-2.0); EOS % 3.3 % (0-4.5); HEMATOCRIT 43.1 % (35.4-49); HEMOGLOBIN 14.1 GM/dL (11.7-16.9); LYMPH % 29.9 % (8-40); MCH 27.3 pg (25.7-33.7); MCHC 32.8 g/dl (32.0-35.9); MEAN CELL VOLUME 83.3 fl (80-96); MEAN PLT VOLUME 7.6 fl (7.5-11.1); MONO % 8.9 % (3.8-10.2); NEUT % 57.4 % (42.8-82.8); PLATELET COUNT 261 K/MM3 (134-434); RBC 5.18 M/mm3 (4.00-5.60); RDW 13.7 % (11.9-15.9); WHITE BLOOD COUNT 4.4 K/mm3 (4.0-10.0)
[2019-10-08 13:28] LABS: HYALINE CASTS 1 /lpf (0-8); URINE APPEARANCE CLEAR; URINE BACTERIA 13.6 /hpf (NEGATIVE); URINE BILIRUBIN NEGATIVE (NEGATIVE); URINE COLOR YELLOW; URINE GLUCOSE (UA) NEGATIVE (NEGATIVE); URINE KETONE NEGATIVE (NEGATIVE); URINE LEUK ESTERASE NEGATIVE (NEGATIVE); URINE NITRITE NEGATIVE (NEGATIVE); URINE PROTEIN NEGATIVE (NEGATIVE); URINE RBC 13 /hpf (0-4); URINE UROBILINOGEN 0.2 mg/dL (0.2-1.0); URINE WBC 3 /hpf (0-5)
[2019-10-08 14:25] LABS: ALBUMIN 3.9 g/dl (3.4-5.0); BILIRUBIN,TOTAL 0.5 mg/dL (0.2-1); BLOOD UREA NITROGEN 10.8 mg/dL (7-18); POTASSIUM 4.7 mmol/L (3.5-5.1); TOT PROT 7.4 g/dl (6.4-8.2)
--- NOTE | 2019-10-08 15:10 | PDOC ---
History of Present Illness - General Chief Complaint: Pain, Acute Stated Complaint: RT SIDE ABD PAIN Time Seen by Provider: 10/08/19 13:04 History Source: Patient Exam Limitations: No Limitations - History of Present Illness Travel History: No Initial Comments: 10/08/19 [id number] male with history of renal colic presents to ED with complaints of right flank right CVA pain since last night intermittently. Patient initially thought she was passing a stone since his last visit he was told he had 2 stones and does not recall passing it. Patient states when pain returned this morning he became concerned feeling as if the stone is still present. Patient also denies fever, chills, nausea, hematuria, or difficulty urinating. Patient is followed by Dr. Rowe and states last time he received lithotripsy was few years ago. Timing/Duration: reports: intermittent Quality: reports: moderate, sharpness Abdominal Pain Onset Location: reports: flank Pain Radiation: reports: back Activities at Onset: reports: none Aggravating Factors: improves with: Movement Alleviating Factors: improves with: None Past History - Travel Traveled outside of the country in the last 30 days: No Close contact w/someone who was outside of country & ill: No - Past Medical History Allergies/Adverse Reactions: Allergies Allergy/AdvReac Type Severity Reaction Status Date / Time Cat/Feline Product Allergy Verified 10/08/19 12:33 Derivatives No Known Drug Allergies Allergy Verified 10/08/19 12:33 Home Medications: Ambulatory Orders NK [No Known Home Medication] 10/08/19 COPD: No DVT: No Disorders: Yes (H/O KIDNEY STONES) Kidney Stones: Yes (MULTIPLE LITHOTRIPSY) - Surgical History Orthopedic Surgery: Yes - Immunization History Td Vaccination: Yes TDAP Vaccination: No Immunization Up to Date: No - Psycho Social/Smoking Cessation Hx Smoking Status: Yes Smoking History: Never smoked Years of Tobacco Use: 20 Have you smoked in the past 12 months: No Number of Cigarettes Smoked Daily: 0 If you are a former smoker, when did you quit?: quit 7 years ago (2009) Cigars Per Day: 0 Hx Alcohol Use: No Drug/Substance Use Hx: Yes Substance Use Type: None Hx Substance Use Treatment: No Patient Lives Alone: No Lives with/in: spouse/SO Abd/GI Specific PMHX - Complaint Specific PMHX Colitis: No Diverticulitis: No Gall Bladder Disease: No GERD: No Hepatitis: No Irritable Bowel Synd (IBS): No Pancreatitis: No GI Ulcer Disease: No Review of Systems - Review of Systems Able to Perform ROS?: Yes Constitutional: No: Symptoms Reported HEENTM: No: Symptoms Reported ABD/GI: No: Abdominal Distended, Nausea, Abdominal cramping : Yes: Flank Pain Musculoskeletal: No: Symptoms Reported Integumentary: No: Symptoms Reported Neurological: No: Symptoms reported Endocrine: No: Symptoms Reported Hematologic/Lymphatic: No: Symptoms Reported *Physical Exam - Vital Signs Last Vital Signs Temp Pulse Resp BP Pulse Ox 98.0 F 63 16 130/79 100 10/08/19 12:31 10/08/19 12:31 10/08/19 12:31 10/08/19 12:31 10/08/19 12:31 - Physical Exam General Appearance: Yes: Nourished, Appropriately Dressed. No: Apparent Distress HEENT: negative: Pale Conjunctivae Neck: positive: Normal Thyroid, Supple Respiratory/Chest: positive: Lungs Clear, Normal Breath Sounds. negative: Respiratory Distress, Accessory Muscle Use Gastrointestinal/Abdominal: positive: Soft, Tenderness (Right flank) Musculoskeletal: positive: CVA Tenderness (R) Extremity: positive: Normal Inspection Integumentary: positive: Normal Color, Warm, Moist Neurologic: positive: Motor Strength 5/5 (Ambulatory) ED Treatment Course - LABORATORY CBC & Chemistry Diagram: 10/08/19 13:12 10/08/19 13:12 - ADDITIONAL ORDERS Additional order review: Laboratory Results 10/08/19 10/08/19 10/08/19 13:12 13:12 13:12 Sodium 140 Potassium 4.7 Chloride 106 Carbon Dioxide 31 Anion Gap 3 L BUN 10.8 Creatinine 1.0 Est GFR (CKD-EPI)AfAm 99.85 Est GFR (CKD-EPI)NonAf 86.15 Random Glucose 99 Calcium 9.0 Total Bilirubin 0.5 AST 14 L ALT 27 Alkaline Phosphatase 93 Total Protein 7.4 Albumin 3.9 Lipase 177 Urine Color Yellow Urine Appearance Clear Urine pH 8.0 D Ur Specific [place] 1.016 Urine Protein Negative Urine Glucose (UA) Negative Urine Ketones Negative Urine Blood Trace Urine Nitrite Negative Urine Bilirubin Negative Urine Urobilinogen 0.2 Ur Leukocyte Esterase Negative Urine WBC (Auto) 3 Urine RBC (Auto) 13 Urine Casts (Auto) 1 U Epithel Cells (Auto) 1.0 Urine Bacteria (Auto) 13.6 10/08/19 13:12 RBC 5.18 MCV 83.3 MCHC 32.8 RDW 13.7 MPV 7.6 Neutrophils % 57.4 Lymphocytes % 29.9 D Monocytes % 8.9 Eosinophils % 3.3 D Basophils % 0.5 - RADIOLOGY Radiology Studies Ordered: Category Date Time Status KIDNEY / RENAL US [US] Stat Ultrasound 10/08/19 14:30 Completed - Medications Given in the ED: ED Medications Discontinued Medications Generic Name Dose Route Start Last Admin Trade Name Freq PRN Reason Stop Dose Admin Sodium Chloride 1,000 mls @ 1,000 mls/hr 10/08/19 13:05 10/08/19 13:09 Normal Saline - IV 10/08/19 14:04 1,000 mls/hr ASDIR STA Administration Ketorolac Tromethamine 30 mg 10/08/19 13:05 10/08/19 13:10 Toradol Injection - IVPUSH 10/08/19 13:06 30 mg ONCE ONE Administration Ondansetron HCl 4 mg 10/08/19 13:05 10/08/19 13:10 Zofran Injection IVPUSH 10/08/19 13:06 4 mg ONCE ONE Administration Medical Decision Making - Medical Decision Making 10/08/19 14:09 Chief complaint: Patient with right flank pain history of renal colic followed by Dr. Rowe no other complaints Exam: Patient right CVA right flank tenderness Plan: Labs, urine, Toradol, Zofran IV fluids. Will order a pelvic ultrasound 10/08/19 15:10 Laboratory Tests 10/08/19 10/08/19 10/08/19 13:12 13:12 13:12 WBC 4.4 Hgb 14.1 Hct 43.1 Absolute Neuts (auto) 2.5 Neutrophils % 57.4 Sodium 140 Potassium 4.7 Chloride 106 Carbon Dioxide 31 Anion Gap 3 L BUN 10.8 Creatinine 1.0 Est GFR (CKD-EPI)NonAf 86.15 Random Glucose 99 Calcium 9.0 Total Bilirubin 0.5 AST 14 L ALT 27 Alkaline Phosphatase 93 Total Protein 7.4 Albumin 3.9 Lipase 177 Urine Ketones Urine Blood Urine Nitrite Ur Leukocyte Esterase Urine RBC (Auto) Urine Bacteria (Auto) 10/08/19 13:12 WBC Hgb Hct Absolute Neuts (auto) Neutrophils % Sodium Potassium Chloride Carbon Dioxide Anion Gap BUN Creatinine Est GFR (CKD-EPI)NonAf Random Glucose Calcium Total Bilirubin AST ALT Alkaline Phosphatase Total Protein Albumin Lipase Urine Ketones Negative Urine Blood Trace Urine Nitrite Negative Ur Leukocyte Esterase Negative Urine RBC (Auto) 13 Urine Bacteria (Auto) 13.6 10/08/19 15:11 Ultrasound shows a nonobstructing right renal lower pole stone measuring 9.4 mm otherwise both kidneys appear unremarkable without evidence of hydronephrosis, cystic or solid mass lesion.. 10/08/19 16:46 Call placed x2 to Dr. BENJI Osorio urology on-call with no callback. Patient states Dr. Rowe has now and is requesting a new urologist Discharge - Discharge Information Problems reviewed: Yes Clinical Impression/Diagnosis: Renal colic on right side Condition: Fair Disposition: HOME - Follow up/Referral Referrals: Mateus Villarreal MD [Staff Physician] - Enoc Qureshi MD [Staff Physician] - - Patient Discharge Instructions Patient Printed Discharge Instructions: DI for Kidney Stones Additional Instructions: Please take medication as prescribed. Drink at least 2 L of water on a daily basis. Take pain medicine as needed for discomfort follow-up with referred urologist - Post Discharge Activity
[2019-10-08] MEDS ORDERED: HYDROmorphone HCL CARPU-JECT 2 MG/1 ML DISP.SYRIN IVPUSH ONE (15:24)
[2019-10-08] MEDS ORDERED: HYDROmorphone HCl 2 MG/ML VIAL ONE (16:12)
== END 2019-10-08 17:00 | disposition home or self-care (01) ==
LOC: JER 12:15
PROC: 3E033NZ Introduction of Analgesics, Hypnotics, Sedatives into Peripheral Vein, Percutaneous Approach (ICD-10-PCS; principal; 2019-10-08)
PROC: 3E0333Z Introduction of Anti-inflammatory into Peripheral Vein, Percutaneous Approach (ICD-10-PCS; 2019-10-08)
PROC: 3E033GC Introduction of Other Therapeutic Substance into Peripheral Vein, Percutaneous Approach (ICD-10-PCS; 2019-10-08)
DX: N20.0 Calculus of kidney (principal); Z87.442 Personal history of urinary calculi; Z91.048 Other nonmedicinal substance allergy status
CPT/HCPCS: 36415; 76775-TC; 80053; 81003; 83690; 85025; 87086; 99282-25; J7030

== ENCOUNTER 2020-06-03 10:13 | Emergency (ER) | payer OTHER ==
[2020-06-03 10:20] VITALS: BP 143/81; PULSE 90; TEMP 98.7; BMI 37.6
--- NOTE | 2020-06-03 10:55 | PDOC ---
History of Present Illness - General Chief Complaint: Abscess Boil Stated Complaint: FACE ABESS Time Seen by Provider: 06/03/20 10:43 History Source: Patient Exam Limitations: Clinical Condition - History of Present Illness Initial Comments: 06/03/20 11:13 Patient with no significant past medical history present with complaint of 2-day history of swelling to left gums and side of face for 2 days. Patient believes he has dental abscess. Patient reports trying to see PCP but was advised by PCP did not have appointment anytime soon. Denies fever, chills, nausea, vomiting, difficulty swallowing, shortness of breath. Denies any other symptoms Is this a multiple visit Asthma Patient?: No Timing/Duration: other (2 days) Past History - Medical History Allergies/Adverse Reactions: Allergies Allergy/AdvReac Type Severity Reaction Status Date / Time Cat/Feline Product Allergy Verified 06/03/20 10:17 Derivatives No Known Drug Allergies Allergy Verified 06/03/20 10:17 Home Medications: Ambulatory Orders Amox-Tr/K Cl [Augmentin - 875Mg Tablet] 1 tab PO BID #14 tablet 06/03/20 Ibuprofen 600 mg PO Q8H PRN #20 tablet 06/03/20 COPD: No DVT: No Disorders: Yes (H/O KIDNEY STONES) Kidney Stones: Yes (MULTIPLE LITHOTRIPSY) - Surgical History Orthopedic Surgery: Yes - Immunization History Td Vaccination: Yes TDAP Vaccination: No Immunization Up to Date: No - Psycho-Social/Smoking History Smoking Status: Yes Smoking History: Never smoked Years of Tobacco Use: 20 Have you smoked in the past 12 months: No Number of Cigarettes Smoked Daily: 0 If you are a former smoker, when did you quit?: quit 7 years ago (2009) Cigars Per Day: 0 - Substance Abuse Hx (Audit-C & DAST Scrn) How often the patient has a drink containing alcohol: Never Score: In Men: 4 or > Positive; In Women: 3 or > Positive: 0 Screen Result (Pos requires Nsg. Audit-10AR): Negative In the last yr the pt used illegal drug/Rx for NonMed reason: No Score: Yes response is considered Positive: 0 Screen Result (Positive result requires Nsg. DAST-10): Negative Review of Systems - Review of Systems Able to Perform ROS?: Yes Is the patient limited [place] proficient: No Constitutional: No: Chills, Fever, Malaise HEENTM: Yes: Symptoms Reported, See HPI, Dental Problems. No: Eye Pain, Blurred Vision, Tearing, Recent change in vision, Double Vision, Cataracts, Ear Pain, Ocular Prothesis, Ear Discharge, Nose Pain, Nose Congestion, Tinnitus, Nose Bleeding, Hearing Loss, Throat Pain, Throat Swelling, Mouth Pain, Difficulty Swallowing, Mouth Swelling, Other Respiratory: No: Symptoms reported, See HPI, Cough, Orthopnea, Shortness of Breath, SOB with Exertion, SOB at Rest, Stridor, Wheezing, Productive cough, Hemoptysis, Other Cardiac (ROS): No: Symptoms Reported, See HPI, Chest Pain, Edema, Irregular Heart Rate, Lightheadedness, Palpitations, Syncope, Chest Tightness, Other ABD/GI: No: Symptoms Reported, Nausea, Vomiting Integumentary: No: Symptoms Reported Neurological: No: Symptoms reported, Numbness, Tingling, Weakness All Other Systems: Reviewed and Negative *Physical Exam - Vital Signs Last Vital Signs Temp Pulse Resp BP Pulse Ox 98.7 F 90 20 143/81 100 06/03/20 10:18 06/03/20 10:18 06/03/20 10:18 06/03/20 10:18 06/03/20 10:18 - Physical Exam 06/03/20 11:18 GENERAL: Well developed, well nourished. Awake and alert. No acute distress. HEENT: mild periodontal swelling to left upper second premolar of what seems to be possible early periodontal abscess. Oropharynx patent. No peritonsillar abscess. Patient afebrile. No visible swelling to face. Normocephalic, atraumatic. PERRLA, EOMI. No conjunctival pallor. Sclera are non-icteric. Moist mucous membranes. Oropharynx is clear. NECK: Supple. Full ROM. CARDIOVASCULAR: Regular rate and rhythm. No murmurs, rubs, or gallops. PULMONARY: No evidence of respiratory distress. Lungs clear to auscultation bilaterally. No wheezing, rales or rhonchi. MUSCULOSKELETAL Normal range of motion at all joints. SKIN: Warm and dry. Normal capillary refill. No rashes. No jaundice.No visible swelling to face NEUROLOGICAL: Alert, awake, appropriate. Gait is normal without ataxia. PSYCHIATRIC: Cooperative. Good eye contact. Appropriate mood General Appearance: Yes: Nourished, Appropriately Dressed. No: Apparent Distress Medical Decision Making - Medical Decision Making 06/03/20 11:14 Patient with no significant past medical history present with complaint of 2-day history of swelling to left gums and side of face for 2 days. Patient believes he has dental abscess. Patient reports trying to see PCP but was advised by PCP did not have appointment anytime soon. Denies fever, chills, nausea, vomiting, difficulty swallowing, shortness of breath. Denies any other symptoms Exam significant for mild periodontal swelling to left upper second premolar of what seems to be possible early periodontal abscess. Oropharynx patent. No peritonsillar abscess. Patient afebrile. No visible swelling to face. Patient stable for discharge on Augmentin antibiotics for periodontitis with possible early abscess and Motrin PRN for pain with follow-up with oral surgeon. Stressed with patient the importance of immediate follow-up with oral surgeon. Patient reported he will make a follow-up appointment as soon as possible. Patient stable for discharge Discharge - Discharge Information Problems reviewed: Yes Clinical Impression/Diagnosis: Dental abscess, Periodontitis Condition: Stable Disposition: HOME - Admission No - Additional Discharge Information Prescriptions: Amox-Tr/K Cl [Augmentin - 875Mg Tablet] 1 tab PO BID #14 tablet Ibuprofen 600 mg PO Q8H PRN #20 tablet PRN Reason: Pain - Follow up/Referral Referrals: Deon Qureshi MD [Primary Care Provider] - [facility]] - Patient Discharge Instructions Patient Printed Discharge Instructions: DI for Tooth Abscess Additional Instructions: Take prescribed medication as prescribed for abscess. Follow-up with dentist as soon as possible as discussed. You are being referred to dental urgent care if unable to secure dental appointment soon with a regular dentist - Post Discharge Activity
== END 2020-06-03 11:07 | disposition home or self-care (01) ==
LOC: JERFT 10:13
DX: K04.7 Periapical abscess without sinus (principal); K05.6 Periodontal disease, unspecified
CPT/HCPCS: 99283-25

== ENCOUNTER 2020-07-22 20:43 | Emergency (ER) | payer OTHER ==
--- NOTE | 2020-07-22 21:01 | PDOC ---
Rapid Medical Evaluation Chief Complaint: Pain, Acute Time Seen by Provider: 07/22/20 20:54 Medical Evaluation: Allergies Allergy/AdvReac Type Severity Reaction Status Date / Time Cat/Feline Product Allergy Verified 06/03/20 10:17 Derivatives No Known Drug Allergies Allergy Verified 06/03/20 10:17 07/22/20 21:00 I have performed a brief in-person evaluation of this patient. The patient presents with a chief complaint of:R flank pain today, h/o renal stones Pertinent physical exam findings:radha uncomfortable I have ordered the following:labs/CT The patient will proceed to the ED for further evaluation. Discharge Disposition - Diagnosis Right flank pain - Referrals Referrals: Deon Qureshi MD [Primary Care Provider] - - Patient Instructions - Post Discharge Activity
[2020-07-22 21:03] VITALS: BMI 39.5
[2020-07-22] MEDS ORDERED: SODIUM CHLORIDE 1,000 ML IV STA (21:13)
[2020-07-22] MEDS ORDERED: ACETAMINOPHEN 1000 MG/100 ML VIAL (NON FORMULARY) IVPB ONE (21:13)
--- OUTSIDE RECORDS SUMMARY | 2020-07-22 21:18 | XMS ---
:1965 Author Organization [facility] Support Name Relationship Address Phone [place] Unavailable [address] [facility] [phone] [place] [address] [employer] [address] [birth year][address] [address] Re-disclosure Warning The records that you are about to access may contain information from federally- assisted alcohol or drug abuse programs. If such information is present, then the following federally mandated warning applies: This information has been disclosed to you from records protected by federal confidentiality rules (42 CFR part 2). The federal rules prohibit you from making any further disclosure of this information unless further disclosure is expressly permitted by the written consent of the person to whom it pertains or as otherwise permitted by 42 CFR part 2. A general authorization for the release of medical or other information is NOT sufficient for this purpose. The Federal rules restrict any use of the information to criminally investigate or prosecute any alcohol or drug abuse patient.The records that you are about to access may contain highly sensitive health information, the redisclosure of which is protected by Article 27-F of the [facility] Public Health law. If you continue you may haveaccess to information: Regarding HIV / AIDS; Provided by facilities licensed or operated by the [facility] Office of Mental Health; or Provided by the [facility] Office for People With Developmental Disabilities. If such information is present, then the following [facility] mandated warning applies: This information has been disclosed to you from confidential records which are protected by state law. State law prohibits you from making any further disclosure of this information without the specific written consent of the person to whom it pertains, or as otherwise permitted by law. Any unauthorized further disclosure in violation of state law may result in a fine or longterm sentence or both. A general authorization for the release of medical or other information is NOT sufficient authorization for further disclosure. Insurance Providers Payer name Policy type Policy ID Covered Covered democrat's Policy P [place] / Coverage democrat ID relationship to [employer] ormation type [facility] [id number] SELF PAY SP INSURANCE
[2020-07-22] MEDS ORDERED: ACETAMINOPHEN INJECTION 100 ML IVPB ONE (21:32)
[2020-07-22 21:43] LABS: BASO % 0.6 % (0-2.0); EOS % 4.9 % (0-4.5); HEMATOCRIT 42.2 % (35.4-49); HEMOGLOBIN 13.6 GM/dL (11.7-16.9); LYMPH % 37.8 % (8-40); MCH 26.5 pg (25.7-33.7); MCHC 32.3 g/dl (32.0-35.9); MEAN CELL VOLUME 81.9 fl (80-96); MEAN PLT VOLUME 7.2 fl (7.5-11.1); MONO % 8.3 % (3.8-10.2); NEUT % 48.4 % (42.8-82.8); PLATELET COUNT 243 K/MM3 (134-434); RBC 5.15 M/mm3 (4.00-5.60); RDW 13.4 % (11.9-15.9); WHITE BLOOD COUNT 4.4 K/mm3 (4.0-10.0)
[2020-07-22 22:05] LABS: ALBUMIN 3.8 g/dl (3.4-5.0); BLOOD UREA NITROGEN 9.8 mg/dL (7-18)
[2020-07-22 22:10] LABS: BILIRUBIN,TOTAL 0.3 mg/dL (0.2-1)
[2020-07-22] MEDS ORDERED: morphine CARPU-JECT 4 MG/1 ML DISP.SYRIN IVPUSH ONE (22:11)
[2020-07-22] MEDS ORDERED: morphine SULFATE 4 MG/ML VIAL ONE (22:22)
--- NOTE | 2020-07-22 22:28 | PDOC ---
History of Present Illness - General Chief Complaint: Pain, Acute Stated Complaint: KIDNEY STONES Time Seen by Provider: 07/22/20 20:54 History Source: Patient - History of Present Illness Initial Comments: 07/22/20 55-year-old male complaining of right flank pain radiating to the right groin and right testicles since this morning. Patient reports that pain is similar to his kidney stone pain. Denies fever/chills, dysuria, hematuria, oliguria.Denies abdominal pain, abdominal distention, testicular Pain 07/23/20 00:12 Past History - Medical History Allergies/Adverse Reactions: Allergies Allergy/AdvReac Type Severity Reaction Status Date / Time Cat/Feline Product Allergy Verified 06/03/20 10:17 Derivatives No Known Drug Allergies Allergy Verified 06/03/20 10:17 Home Medications: Ambulatory Orders Amox-Tr/K Cl [Augmentin - 875Mg Tablet] 1 tab PO BID #14 tablet 06/03/20 Ibuprofen 600 mg PO Q8H PRN #20 tablet 06/03/20 Ibuprofen 600 mg PO Q6H PRN #20 tablet 07/23/20 Oxycodone HCl/Acetaminophen [Percocet 5-325 mg Tablet] 1 - 2 tab PO Q6H #4 tab MDD 4 07/23/20 COPD: No DVT: No Disorders: Yes (H/O KIDNEY STONES) Kidney Stones: Yes (MULTIPLE LITHOTRIPSY) - Surgical History Orthopedic Surgery: Yes - Immunization History Td Vaccination: Yes TDAP Vaccination: No Immunization Up to Date: No - Psycho-Social/Smoking History Smoking Status: Yes Smoking History: Never smoked Years of Tobacco Use: 20 Have you smoked in the past 12 months: No Number of Cigarettes Smoked Daily: 0 If you are a former smoker, when did you quit?: quit 7 years ago (2009) Cigars Per Day: 0 - Substance Abuse Hx (Audit-C & DAST Scrn) How often the patient has a drink containing alcohol: Never Score: In Men: 4 or > Positive; In Women: 3 or > Positive: 0 Screen Result (Pos requires Nsg. Audit-10AR): Negative Abd/GI Specific PMHX - Complaint Specific PMHX Colitis: No Diverticulitis: No Gall Bladder Disease: No GERD: No Hepatitis: No Irritable Bowel Synd (IBS): No Pancreatitis: No GI Ulcer Disease: No Review of Systems - Review of Systems Able to Perform ROS?: Yes Is the patient limited Green[place]ic proficient: No Constitutional: No: Symptoms Reported, See HPI, Chills, Diaphoresis, Fever, Loss of Appetite, Malaise, Night Sweats, Weakness, Weight Stable, Unintentional Wgt. Loss, Unexplained wgt Loss, Other ABD/GI: Yes: Nausea. No: Symptoms Reported, See HPI, Abdominal Distended, Abd. Pain w/ defecation, Blood Streaked Bowels, Constipated, Diarrhea, Difficulty Swallowing, Poor Appetite, Poor Fluid Intake, Rectal Bleeding, Vomiting, Indigestion, Abdominal cramping, Tarry Stools, Other : Yes: Flank Pain, Testicular Pain. No: Symptoms Reported, See HPI, Burning, Dysuria, Discharge, Frequency, Hematuria, Incontinence, Pain, Urgency, Testicular Mass, Testicular Swelling, Lesions, Other *Physical Exam - Vital Signs Last Vital Signs Temp Pulse Resp BP Pulse Ox 98.1 F 83 20 144/96 99 07/22/20 20:59 07/22/20 20:59 07/22/20 20:59 07/22/20 20:59 07/22/20 20:59 - Physical Exam General Appearance: Yes: Appropriately Dressed Respiratory/Chest: positive: Lungs Clear, Normal Breath Sounds Gastrointestinal/Abdominal: positive: Normal Bowel Sounds, Other (RLQ, no palpable mass, no hernia palpated) Male Genitalia: positive: normal genitalia, testicular tenderness (right). negative: inguinal hernia Musculoskeletal: positive: Normal Inspection, CVA Tenderness, CVA Tenderness (R) Extremity: positive: Normal Capillary Refill, Normal Inspection Integumentary: positive: Normal Color, Dry, Warm Neurologic: positive: Fully Oriented, Alert, Normal Mood/Affect ED Treatment Course - LABORATORY CBC & Chemistry Diagram: 07/22/20 21:28 07/22/20 21:28 - ADDITIONAL ORDERS Additional order review: Laboratory Results 07/22/20 21:28 Sodium 139 Potassium 4.0 Chloride 105 Carbon Dioxide 29 Anion Gap 5 L BUN 9.8 Creatinine 1.0 Est GFR (CKD-EPI)AfAm 99.15 Est GFR (CKD-EPI)NonAf 85.55 Random Glucose 142 H Calcium 9.0 Total Bilirubin 0.3 AST 23 ALT 43 Alkaline Phosphatase 97 Total Protein 7.0 Albumin 3.8 07/22/20 21:28 RBC 5.15 MCV 81.9 MCHC 32.3 RDW 13.4 MPV 7.2 L Neutrophils % 48.4 Lymphocytes % 37.8 Monocytes % 8.3 Eosinophils % 4.9 H D Basophils % 0.6 - RADIOLOGY Radiology Studies Ordered: Category Date Time Status ABDOMEN & PELVIS CT W/O CONTR [CT] Stat CT Scan 07/22/20 21:40 Completed SCROTUM AND CONTENTS US [US] Stat Ultrasound 07/22/20 22:11 Ordered - Medications Given in the ED: ED Medications Discontinued Medications Generic Name Dose Route Start Last Admin Trade Name Freq PRN Reason Stop Dose Admin Acetaminophen 1,000 mg 07/22/20 21:13 07/22/20 21:31 Ofirmev Injection - IVPB 07/22/20 21:14 1,000 mg ONCE ONE Administration Sodium Chloride 1,000 mls @ 1,000 mls/hr 07/22/20 21:13 07/22/20 21:31 Normal Saline - IV 07/22/20 22:12 1,000 mls/hr ASDIR STA Administration ED Progress Note - Progress Note Progress Note: 07/23/20 00:05 A: renal colic? P: cbc cmp ua: + blood Scrotal US: wnl CTAP: nonobstructing stones Medical Decision Making - Medical Decision Making 07/23/20 00:36 Pain has improved. Likely renal colic more recently passed stone small amount of blood in urine. Will DC home with close urology follow-up Discharge - Discharge Information Problems reviewed: Yes Clinical Impression/Diagnosis: Right flank pain, Testicular pain, right Disposition: HOME - Additional Discharge Information Prescriptions: Ibuprofen 600 mg PO Q6H PRN #20 tablet PRN Reason: Pain Oxycodone HCl/Acetaminophen [Percocet 5-325 mg Tablet] 1 - 2 tab PO Q6H #4 tab MDD 4 - Follow up/Referral Referrals: Deon Qureshi MD [Primary Care Provider] - Barrett Marti MD [Staff Physician] - Call tomorrow - Patient Discharge Instructions Patient Printed Discharge Instructions: Kidney Stones -- Adult Additional Instructions: Take ibuprofen every 6 hours as needed for pain. Take Percocet for more moderate pain as prescribed. Drink plenty of fluids Follow-up with the urologist as soon as possible. Return to the emergency room if you are experiencing worsening pain after pain medication, nausea vomiting, fever or any worsening symptoms. - Post Discharge Activity Work/Back to School Note: Back to Work
[2020-07-22] MEDS ORDERED: KETOROLAC TROMETHAMINE 30 MG/1 ML VIAL IVPUSH ONE (23:03)
[2020-07-22] MEDS ORDERED: KETOROLAC TROMETHAMINE 30 MG/1 ML VIAL ONE (23:14)
[2020-07-22 23:36] LABS: EPI CELLS 26 /uL (0-25.1); HYALINE CASTS 7 /uL (0-3.1); URINE APPEARANCE CLEAR; URINE BACTERIA 19 /uL (0-1359); URINE BILIRUBIN NEGATIVE (NEGATIVE); URINE COLOR YELLOW; URINE GLUCOSE (UA) NEGATIVE (NEGATIVE); URINE KETONE NEGATIVE (NEGATIVE); URINE LEUK ESTERASE NEGATIVE (NEGATIVE); URINE NITRITE NEGATIVE (NEGATIVE); URINE PROTEIN NEGATIVE (NEGATIVE); URINE RBC 116 /uL (0-23.9); URINE WBC 46 /uL (0-25.8)
[2020-07-23 01:30] VITALS: BP 150/95; PULSE 64; TEMP 97.8
== END 2020-07-23 01:30 | disposition home or self-care (01) ==
LOC: JER 20:43
PROC: 3E0333Z Introduction of Anti-inflammatory into Peripheral Vein, Percutaneous Approach (ICD-10-PCS; principal; 2020-07-22)
PROC: 3E0333Z Introduction of Anti-inflammatory into Peripheral Vein, Percutaneous Approach (ICD-10-PCS; 2020-07-22)
PROC: 3E033NZ Introduction of Analgesics, Hypnotics, Sedatives into Peripheral Vein, Percutaneous Approach (ICD-10-PCS; 2020-07-22)
PROC: 3E0337Z Introduction of Electrolytic and Water Balance Substance into Peripheral Vein, Percutaneous Approach (ICD-10-PCS; 2020-07-22)
DX: R10.9 Unspecified abdominal pain (principal)
CPT/HCPCS: 36415; 74176-TC; 76870-TC; 80053; 81003; 85025; 87086; 99284-25; J0131

== ENCOUNTER 2020-10-18 10:07 | Emergency (ER) | payer OTHER ==
[2020-10-18 10:29] VITALS: BMI 41.8
[2020-10-18] MEDS ORDERED: ONDANSETRON 4 MG/2 ML VIAL IVPUSH ONE (11:10)
[2020-10-18] MEDS ORDERED: KETOROLAC TROMETHAMINE 30 MG/1 ML VIAL IVPUSH ONE (11:10)
[2020-10-18] MEDS ORDERED: ONDANSETRON 4 MG/2 ML VIAL ONE (11:16)
[2020-10-18] MEDS ORDERED: KETOROLAC TROMETHAMINE 30 MG/1 ML VIAL ONE (11:16)
[2020-10-18 11:56] LABS: BASO % 0.6 % (0-2.0); EOS % 4.1 % (0-4.5); HEMATOCRIT 40.4 % (35.4-49); HEMOGLOBIN 13.5 GM/dL (11.7-16.9); LYMPH % 30.9 % (8-40); MCH 27.5 pg (25.7-33.7); MCHC 33.5 g/dl (32.0-35.9); MEAN PLT VOLUME 7.7 fl (7.5-11.1); MONO % 13.8 % (3.8-10.2); NEUT % 50.6 % (42.8-82.8); PLATELET COUNT 261 K/MM3 (134-434); RBC 4.93 M/mm3 (4.00-5.60); RDW 13.5 % (11.9-15.9); WHITE BLOOD COUNT 4.6 K/mm3 (4.0-10.0)
[2020-10-18 12:13] LABS: POTASSIUM 4.6 mmol/L (3.5-5.1)
[2020-10-18 12:15] LABS: CALCIUM 9.4 mg/dL (8.5-10.1)
[2020-10-18 12:17] LABS: BLOOD UREA NITROGEN 12.6 mg/dL (7-18)
[2020-10-18] MEDS ORDERED: ACETAMINOPHEN 325 MG TABLET (FP) PO ONE (12:19)
[2020-10-18 12:20] LABS: BILIRUBIN,TOTAL 0.4 mg/dL (0.2-1); TOT PROT 7.2 g/dl (6.4-8.2)
[2020-10-18] MEDS ORDERED: ACETAMINOPHEN 325 MG TABLET (FP) ONE (12:22)
[2020-10-18 13:36] LABS: EPI CELLS >36 /uL (0-25.1); HYALINE CASTS 7 /uL (0-3.1); PH,URINE 5.5 (5.0-8.0); URINE APPEARANCE CLEAR; URINE BACTERIA 430 /uL (0-1359); URINE BILIRUBIN NEGATIVE (NEGATIVE); URINE COLOR YELLOW; URINE GLUCOSE (UA) NEGATIVE (NEGATIVE); URINE KETONE TRACE (NEGATIVE); URINE LEUK ESTERASE 1+ (NEGATIVE); URINE NITRITE NEGATIVE (NEGATIVE); URINE PROTEIN TRACE (NEGATIVE); URINE UROBILINOGEN 0.2 mg/dL (0.2-1.0); URINE WBC 79 /uL (0-25.8)
[2020-10-18 13:51] LABS: URINE RBC 72.8 /uL (0-23.9); YEAST NON SEEN (NEGATIVE)
[2020-10-18 14:09] VITALS: BP 150/90; PULSE 74; TEMP 98.3
[2020-10-18 15:20] LABS: EPI CELLS 19 /uL (0-25.1); HYALINE CASTS 1 /uL (0-3.1); URINE APPEARANCE CLEAR; URINE BACTERIA 182 /uL (0-1359); URINE BILIRUBIN NEGATIVE (NEGATIVE); URINE COLOR YELLOW; URINE GLUCOSE (UA) NEGATIVE (NEGATIVE); URINE KETONE NEGATIVE (NEGATIVE); URINE LEUK ESTERASE TRACE (NEGATIVE); URINE NITRITE NEGATIVE (NEGATIVE); URINE PROTEIN TRACE (NEGATIVE); URINE RBC 58 /uL (0-23.9); URINE UROBILINOGEN 0.2 mg/dL (0.2-1.0); URINE WBC 28 /uL (0-25.8)
== END 2020-10-18 15:44 | disposition home or self-care (01) ==
LOC: JER 10:07
PROC: 3E033NZ Introduction of Analgesics, Hypnotics, Sedatives into Peripheral Vein, Percutaneous Approach (ICD-10-PCS; principal; 2020-10-18)
PROC: 3E0333Z Introduction of Anti-inflammatory into Peripheral Vein, Percutaneous Approach (ICD-10-PCS; 2020-10-18)
DX: N20.0 Calculus of kidney (principal); N39.0 Urinary tract infection, site not specified
CPT/HCPCS: 36415; 80053; 81003; 85025; 87077; 87086; 99285-25

== ENCOUNTER 2020-10-20 20:42 | Emergency (ER) | payer OTHER ==
[2020-10-20 20:46] VITALS: BMI 41.0
[2020-10-20] MEDS ORDERED: ONDANSETRON 4 MG/2 ML VIAL IVPUSH ONE (21:06)
[2020-10-20] MEDS ORDERED: ONDANSETRON 4 MG/2 ML VIAL ONE (21:06)
[2020-10-20] MEDS ORDERED: KETOROLAC TROMETHAMINE 30 MG/1 ML VIAL IVPUSH ONE (21:06)
[2020-10-20] MEDS ORDERED: KETOROLAC TROMETHAMINE 30 MG/1 ML VIAL ONE (21:06)
[2020-10-20] MEDS ORDERED: LACTATED RINGERS SOLUTION 1000 ML INFUS.BAG IV ONE (21:18)
[2020-10-20 21:54] LABS: BASO % 0.6 % (0-2.0); EOS % 2.8 % (0-4.5); HEMATOCRIT 43.5 % (35.4-49); HEMOGLOBIN 14.2 GM/dL (11.7-16.9); LYMPH % 30.1 % (8-40); MCH 26.8 pg (25.7-33.7); MCHC 32.5 g/dl (32.0-35.9); MEAN CELL VOLUME 82.5 fl (80-96); MEAN PLT VOLUME 7.8 fl (7.5-11.1); MONO % 11.2 % (3.8-10.2); NEUT % 55.3 % (42.8-82.8); PLATELET COUNT 292 K/MM3 (134-434); RBC 5.28 M/mm3 (4.00-5.60); RDW 13.8 % (11.9-15.9); WHITE BLOOD COUNT 6.5 K/mm3 (4.0-10.0)
[2020-10-20] MEDS ORDERED: morphine CARPU-JECT 4 MG/1 ML DISP.SYRIN IVPUSH ONE (22:06)
[2020-10-20 22:12] LABS: POTASSIUM 4.1 mmol/L (3.5-5.1)
[2020-10-20 22:15] LABS: ALBUMIN 4.2 g/dl (3.4-5.0)
[2020-10-20] MEDS ORDERED: morphine SULFATE 4 MG/ML VIAL ONE (22:16)
[2020-10-20 22:18] LABS: CREATININE 1.1 mg/dL (0.55-1.3)
[2020-10-20 22:19] LABS: TOT PROT 7.8 g/dl (6.4-8.2)
[2020-10-20 22:39] LABS: BLOOD UREA NITROGEN 8.2 mg/dL (7-18)
[2020-10-20 23:40] VITALS: BP 116/73; PULSE 84; TEMP 98.6
== END 2020-10-20 23:45 | disposition home or self-care (01) ==
LOC: JER 20:42
PROC: 3E0333Z Introduction of Anti-inflammatory into Peripheral Vein, Percutaneous Approach (ICD-10-PCS; principal; 2020-10-20)
PROC: 3E033GC Introduction of Other Therapeutic Substance into Peripheral Vein, Percutaneous Approach (ICD-10-PCS; 2020-10-20)
DX: N23 Unspecified renal colic (principal)
CPT/HCPCS: 36415; 76775-TC; 80053; 85025; 93005; 93010; 99285-25

== ENCOUNTER 2020-10-29 04:20 | Day surgery (SDC) | payer OTHER ==
[2020-10-28 12:50] VITALS: BMI 41.2
[2020-10-29] MEDS ORDERED: PROMETHAZINE HCL 25 MG/1 ML VIAL IVPB PRN (12:42)
[2020-10-29] MEDS ORDERED: ONDANSETRON 4 MG/2 ML VIAL IVPUSH PRN (12:42)
[2020-10-29] MEDS ORDERED: oxyCODONE HCL 5 MG TABLET PO PRN (12:42)
[2020-10-29] MEDS ORDERED: LACTATED RINGERS SOLUTION 1,000 ML IV SCH (12:45)
[2020-10-29] MEDS ORDERED: MIDAZOLAM HCL 2 MG/2 ML SINGLE DOSE VIAL ONE (13:19)
[2020-10-29] MEDS ORDERED: PROPOFOL 20 ML ONE ×2 (13:20)
[2020-10-29] MEDS ORDERED: ceFAZolin 2 GRAM PREMIX BAG IVPB ONE (13:28)
[2020-10-29] MEDS ORDERED: hydrALAZINE HCL 20 MG/ML VIAL ONE (15:06)
[2020-10-29] MEDS ORDERED: hydrALAZINE HCL 20 MG/ML VIAL IVPUSH ONE (15:09)
[2020-10-29] MEDS ORDERED: hydrALAZINE HCL 20 MG/ML VIAL IVPUSH PRN (15:29)
[2020-10-29 17:02] VITALS: BP 138/75; PULSE 86; TEMP 97
== END 2020-10-29 17:00 | disposition home or self-care (01) ==
LOC: JASU-SURG 04:20
PROVIDERS: ATTEND Urology
PROC: 0T768DZ Dilation of Right Ureter with Intraluminal Device, Via Natural or Artificial Opening Endoscopic (ICD-10-PCS; principal; 2020-10-29 11:30)
DX: N20.1 Calculus of ureter (principal); N32.89 Other specified disorders of bladder; E66.01 Morbid (severe) obesity due to excess calories; E11.9 Type 2 diabetes mellitus without complications
CPT/HCPCS: 76000-TC-FY; 94760

== ENCOUNTER 2020-11-25 04:12 | Day surgery (SDC) | payer OTHER ==
[2020-11-20 11:59] VITALS: BMI 41.8
[~2020-11-25 04:12] MED LIST: ceFAZolin 2 GRAM PREMIX BAG IVPB ONE
[2020-11-25] MEDS ORDERED: ceFAZolin SODIUM 1 GM VIAL ONE (11:58)
[2020-11-25] MEDS ORDERED: MIDAZOLAM HCL 2 MG/2 ML SINGLE DOSE VIAL ONE (11:58)
[2020-11-25] MEDS ORDERED: PROPOFOL 20 ML ONE (11:58)
[2020-11-25] MEDS ORDERED: KETOROLAC TROMETHAMINE 30 MG/1 ML VIAL ONE (12:12)
[2020-11-25 15:21] VITALS: BP 127/86; PULSE 77; TEMP 98.3
== END 2020-11-25 15:00 | disposition home or self-care (01) ==
LOC: JASU-SURG 04:12
PROVIDERS: ATTEND Urology
PROC: 0TF3XZZ Fragmentation in Right Kidney Pelvis, External Approach (ICD-10-PCS; principal; 2020-11-25 10:30)
DX: N20.0 Calculus of kidney (principal); E11.9 Type 2 diabetes mellitus without complications; Z79.84 Long term (current) use of oral hypoglycemic drugs
CPT/HCPCS: 82962

== ENCOUNTER 2022-04-20 04:24 | Day surgery (SDC) | payer OTHER ==
[2022-04-19 15:43] VITALS: BMI 41.2
[2022-04-20] MEDS ORDERED: LIDOCAINE HCL 1% PRESERVATIVE FREE - 30ML VIAL IJ ONE (10:30)
[2022-04-20] MEDS ORDERED: BUPIVACAINE HCL/PF 0.75% 10 ML VIAL PNB ONE (10:30)
[2022-04-20 10:55] VITALS: BP 114/78; PULSE 60; TEMP 98.9
== END 2022-04-20 11:10 | disposition home or self-care (01) ==
LOC: JASU-SURG 04:24
PROVIDERS: ATTEND Pain Medicine Pain Medicine
PROC: BR16YZZ Fluoroscopy of Lumbar Facet Joint(s) using Other Contrast (ICD-10-PCS; 2022-04-20)
PROC: 3E0T3BZ Introduction of Anesthetic Agent into Peripheral Nerves and Plexi, Percutaneous Approach (ICD-10-PCS; principal; 2022-04-20 09:45)
DX: M47.816 Spondylosis without myelopathy or radiculopathy, lumbar region (principal)
CPT/HCPCS: 76000-TC-FY

== ENCOUNTER 2022-05-14 04:09 | Day surgery (SDC) | payer OTHER ==
[2022-05-11 17:02] VITALS: BMI 41.8
[2022-05-14] MEDS ORDERED: LIDOCAINE HCL/PF 1% SDV 5ML VIAL ONE (07:18)
[2022-05-14] MEDS ORDERED: BUPIVACAINE HCL/PF 0.75% 10 ML VIAL ONE (07:18)
[2022-05-14] MEDS ORDERED: BUPIVACAINE HCL/PF 0.75% 10 ML VIAL NR ONE (08:52)
[2022-05-14] MEDS ORDERED: LIDOCAINE HCL 1% PRESERVATIVE FREE - 30ML VIAL IJ ONE (08:52)
[2022-05-14 10:24] VITALS: BP 126/83; PULSE 63; RESP 16; TEMP 97.9
== END 2022-05-14 10:25 | disposition home or self-care (01) ==
LOC: JASU-SURG 04:09
PROVIDERS: ATTEND Pain Medicine Pain Medicine
PROC: 3E0T33Z Introduction of Anti-inflammatory into Peripheral Nerves and Plexi, Percutaneous Approach (ICD-10-PCS; 2022-05-14)
PROC: 3E0T3BZ Introduction of Anesthetic Agent into Peripheral Nerves and Plexi, Percutaneous Approach (ICD-10-PCS; principal; 2022-05-14 08:30)
DX: M47.816 Spondylosis without myelopathy or radiculopathy, lumbar region (principal)
CPT/HCPCS: 76000-TC-FY

== ENCOUNTER 2022-07-23 03:56 | Day surgery (SDC) | payer OTHER ==
[2022-07-22 08:57] VITALS: BMI 40.3
[~2022-07-23 03:56] MED LIST changes: +BUPIVACAINE HCL/PF 0.75% 10 ML VIAL PNB ONE; +DEXAMETHASONE SOD PHOSPHATE 10 MG/1 ML VIAL IVPUSH ONE; +LIDOCAINE 1% P/F 10 MG/ML VIAL PNB ONE; +LIDOCAINE HCL 1% PRESERVATIVE FREE - 30ML VIAL IJ ONE; +LIDOCAINE HCL/PF 2% SDV 5ML VIAL INF ONE; +LIDOCAINE HCL/PF 2% SDV 5ML VIAL PNB ONE; -ceFAZolin 2 GRAM PREMIX BAG IVPB ONE
[2022-07-23] MEDS ORDERED: BUPIVACAINE HCL/PF 0.75% 10 ML VIAL ONE (07:27)
[2022-07-23] MEDS ORDERED: DEXAMETHASONE SOD PHOSPHATE 10 MG/1 ML VIAL ONE (07:27)
[2022-07-23] MEDS ORDERED: LIDOCAINE HCL/PF 1% SDV 5ML VIAL ONE ×2 (07:27)
[2022-07-23] MEDS ORDERED: LIDOCAINE HCL/PF 2% SDV 5ML VIAL INF ONE (10:38)
[2022-07-23] MEDS ORDERED: LIDOCAINE HCL 1% PRESERVATIVE FREE - 30ML VIAL IJ ONE (10:38)
[2022-07-23] MEDS ORDERED: DEXAMETHASONE SOD PHOSPHATE 10 MG/1 ML VIAL IVPUSH ONE (10:38)
[2022-07-23] MEDS ORDERED: BUPIVACAINE HCL/PF 0.75% 10 ML VIAL PNB ONE (10:38)
[2022-07-23 11:51] VITALS: RESP 18
[2022-07-23 12:31] VITALS: BP 135/75; PULSE 81; TEMP 98
== END 2022-07-23 12:15 | disposition home or self-care (01) ==
LOC: JASU-SURG 03:56
PROVIDERS: ATTEND Pain Medicine Pain Medicine
PROC: 3E0T3TZ Introduction of Destructive Agent into Peripheral Nerves and Plexi, Percutaneous Approach (ICD-10-PCS; principal; 2022-07-23 10:15)
PROC: BR16YZZ Fluoroscopy of Lumbar Facet Joint(s) using Other Contrast (ICD-10-PCS; 2022-07-23 10:15)
DX: M47.816 Spondylosis without myelopathy or radiculopathy, lumbar region (principal)
CPT/HCPCS: 76000-TC-FY; J1100

== ENCOUNTER 2022-09-03 04:18 | Day surgery (SDC) | payer OTHER ==
[2022-09-02 09:46] VITALS: BMI 40.3
[2022-09-03] MEDS ORDERED: LIDOCAINE HCL/PF 2% SDV 5ML VIAL ONE (07:16)
[2022-09-03] MEDS ORDERED: LIDOCAINE HCL/PF 1% SDV 5ML VIAL ONE (07:16)
[2022-09-03] MEDS ORDERED: BUPIVACAINE HCL/PF 0.75% 10 ML VIAL ONE (07:16)
[2022-09-03] MEDS ORDERED: DEXAMETHASONE SOD PHOSPHATE 10 MG/1 ML VIAL ONE (07:16)
[2022-09-03] MEDS ORDERED: DEXAMETHASONE SOD PHOSPHATE 10 MG/1 ML VIAL IVPUSH ONE (11:21)
[2022-09-03] MEDS ORDERED: BUPIVACAINE HCL/PF 0.75% 10 ML VIAL NR ONE (11:21)
[2022-09-03] MEDS ORDERED: LIDOCAINE HCL 1% PRESERVATIVE FREE - 30ML VIAL IJ ONE ×2 (11:23)
[2022-09-03] MEDS ORDERED: LIDOCAINE HCL/PF 2% SDV 5ML VIAL INF ONE ×2 (11:24)
[2022-09-03 12:11] VITALS: RESP 20
[2022-09-03 12:45] VITALS: BP 120/70; PULSE 60; TEMP 98
== END 2022-09-03 12:45 | disposition home or self-care (01) ==
LOC: JASU-SURG 04:18
PROVIDERS: ATTEND Pain Medicine Pain Medicine
PROC: 3E0T3TZ Introduction of Destructive Agent into Peripheral Nerves and Plexi, Percutaneous Approach (ICD-10-PCS; principal; 2022-09-03 12:00)
PROC: BR16YZZ Fluoroscopy of Lumbar Facet Joint(s) using Other Contrast (ICD-10-PCS; 2022-09-03 12:00)
DX: M47.816 Spondylosis without myelopathy or radiculopathy, lumbar region (principal)
CPT/HCPCS: 76000-TC-FY; J1100

== ENCOUNTER 2024-02-20 16:49 | Emergency (ER) | payer OTHER ==
[2024-02-20 17:08] VITALS: BP 122/78; PULSE 63; RESP 18; TEMP 97.8; BMI 33.4
[2024-02-20 18:12] LABS: VENOUS BASE EXCESS -0.8 mmol/L (-2-2); VENOUS O2 SATURATION 70.1 % (70-80); VENOUS PCO2 42.7 mmHg (38-52); VENOUS PH 7.376 (7.310-7.410)
[2024-02-20 18:14] LABS: BASO % 0.7 % (0-2.0); EOS % 3.5 % (0-4.5); HEMATOCRIT 39.8 % (35.4-49); HEMOGLOBIN 13.3 GM/dL (11.7-16.9); LYMPH % 36.4 % (8-40); MCH 27.5 pg (25.7-33.7); MCHC 33.4 g/dl (32.0-35.9); MEAN CELL VOLUME 82.3 fl (80-96); MEAN PLT VOLUME 6.9 fl (7.5-11.1); MONO % 8.4 % (3.8-10.2); PLATELET COUNT 249 10^3/uL (134-434); RBC 4.84 M/mm3 (4.00-5.60); RDW 14.3 % (11.9-15.9); WHITE BLOOD COUNT 5.5 K/mm3 (4.0-10.0)
== END 2024-02-20 19:13 | disposition home or self-care (01) ==
LOC: JER 16:49
DX: T59.891A Toxic effect of other specified gases, fumes and vapors, accidental (unintentional), initial encounter (principal); X02.1XXA Exposure to smoke in controlled fire in building or structure, initial encounter
CPT/HCPCS: 36415; 71046-TC-FY; 82375; 82803; 85025; 99284-25

== ENCOUNTER 2024-02-21 04:05 | Day surgery (SDC) | payer OTHER ==
[2024-02-15 16:46] VITALS: BMI 33.7
[2024-02-21] MEDS ORDERED: BUPIVACAINE HCL/PF 0.75% 10 ML VIAL ONE (07:30)
[2024-02-21] MEDS ORDERED: DEXAMETHASONE SOD PHOSPHATE 10 MG/1 ML VIAL ONE (07:30)
[2024-02-21] MEDS ORDERED: LIDOCAINE HCL/PF 2% SDV 5ML VIAL ONE (07:30)
[2024-02-21] MEDS ORDERED: LIDOCAINE HCL/PF 1% SDV 5ML VIAL ONE (07:30)
[2024-02-21 10:26] VITALS: RESP 18
[2024-02-21] MEDS: LIDOCAINE HCL 1% PRESERVATIVE FREE - 30ML VIAL IJ ONE (11:12)
[2024-02-21] MEDS: LIDOCAINE HCL/PF 2% SDV 5ML VIAL SQ ONE ×2 (11:17)
[2024-02-21] MEDS: BUPIVACAINE HCL/PF 0.75% 10 ML VIAL NR ONE ×2 (11:18→11:23)
[2024-02-21] MEDS ORDERED: ACETAMINOPHEN 500 MG TABLET (FP) PO PRN (14:04)
[2024-02-21 14:14] VITALS: BP 119/74; PULSE 60; TEMP 98.4
== END 2024-02-21 12:00 | disposition home or self-care (01) ==
LOC: JASU-SURG 04:05
PROVIDERS: ATTEND Pain Medicine Pain Medicine
PROC: 015B3ZZ Destruction of Lumbar Nerve, Percutaneous Approach (ICD-10-PCS; principal; 2024-02-21 11:00)
DX: M47.816 Spondylosis without myelopathy or radiculopathy, lumbar region (principal)
CPT/HCPCS: 76000-TC-FY; J1100

== ENCOUNTER 2024-06-07 19:49 | Emergency (ER) | payer OTHER ==
[2024-06-07 20:08] VITALS: BP 112/71; PULSE 74; RESP 18; TEMP 99.3; BMI 31.9
== END 2024-06-07 21:55 | disposition home or self-care (01) ==
LOC: JERFT 19:49 → JER 19:49 → JERFT 21:55
DX: M79.644 Pain in right finger(s) (principal); M79.89 Other specified soft tissue disorders
CPT/HCPCS: 73130-TC-LT-FY; 99283-25

== ENCOUNTER 2024-11-20 00:29 | Emergency (ER) | payer OTHER ==
[2024-11-20 00:36] VITALS: BP 132/78; PULSE 60; RESP 20; TEMP 97.8; BMI 31.9
[2024-11-20] MEDS ORDERED: ACETAMINOPHEN INJECTION 100 ML ONE (01:03)
[2024-11-20] MEDS: ACETAMINOPHEN 1000 MG/100 ML BAG IVPB ONE (01:11)
[2024-11-20 01:22] LABS: BASO % 0.6 % (0-2.0); EOS % 4.7 % (0-4.5); HEMATOCRIT 42.6 % (35.4-49); HEMOGLOBIN 14.2 GM/dL (11.7-16.9); MCH 27.3 pg (25.7-33.7); MCHC 33.4 g/dl (32.0-35.9); MEAN CELL VOLUME 81.9 fl (80-96); MEAN PLT VOLUME 7.2 fl (7.5-11.1); MONO % 10.8 % (3.8-10.2); NEUT % 43.9 % (42.8-82.8); PLATELET COUNT 235 10^3/uL (134-434); RDW 13.9 % (11.9-15.9); WHITE BLOOD COUNT 5.3 K/mm3 (4.0-10.0)
[2024-11-20 01:42] LABS: INR 1.11 (0.83-1.09); PROTHROMBIN TIME (PATIENT) 12.2 SEC (9.7-13.0)
[2024-11-20 01:44] LABS: ACTIVATED PTT 34.9 SECONDS (25.2-36.5)
[2024-11-20 02:13] LABS: ERYTHROCYTE SEDIMENTATION RATE 7 mm/hr (0-20)
[2024-11-20 02:15] LABS: POTASSIUM 4.2 mmol/L (3.5-5.1)
[2024-11-20 02:17] LABS: CALCIUM 9.2 mg/dL (8.5-10.1)
[2024-11-20 02:18] LABS: BLOOD UREA NITROGEN 11.1 mg/dL (7-18)
[2024-11-20 02:21] LABS: BILIRUBIN,TOTAL 0.3 mg/dL (0.2-1); TOT PROT 7.1 g/dl (6.4-8.2)
== END 2024-11-20 04:34 | disposition home or self-care (01) ==
LOC: JER 00:29
PROC: 3E033NZ Introduction of Analgesics, Hypnotics, Sedatives into Peripheral Vein, Percutaneous Approach (ICD-10-PCS; principal; 2024-11-20)
DX: R51.9 Headache, unspecified (principal); R11.0 Nausea; H53.149 Visual discomfort, unspecified
CPT/HCPCS: 36415; 70496-TC; 70498-TC; 80053; 85025; 85610; 85651; 85730; 86140; 96374; 99285-25; J0131

== ENCOUNTER 2025-07-29 14:06 | Emergency (ER) | payer OTHER ==
[2025-07-29 14:29] VITALS: BP 127/79; PULSE 68; RESP 16; TEMP 98.7; BMI 31.9
== END 2025-07-29 17:59 | disposition home or self-care (01) ==
LOC: JER 14:06
DX: I10 Essential (primary) hypertension (principal); R51.9 Headache, unspecified
CPT/HCPCS: 70450-TC; 99284-25